=== PATIENT | female | born 2000 | race Two or more races ===

== ENCOUNTER 2023-03-23 20:13 | Inpatient (IN) | payer OTHER, MEDICAID, SELFPAY ==
[2023-03-23 20:16] VITALS: BP 115/79; PULSE 71; RESP 18; TEMP 36.9; O2SAT 96; BMI 31.1
--- NOTE | 2023-03-23 20:30 | CT_ITS ---
The [address] [address] Patient Name: TONI SOTELO MRN: [id number] date: 2000 Sex: F Assigned Patient Location: ER Current Patient Location: ER Accession/Order Number: [id number] Exam Date: 03/23/2023 21:20 Report Date: 03/23/2023 21:51 At the request of: MALVIN AGUILAR Procedure: CT abdomen pelvis w con EXAMINATION: CT ABDOMEN AND PELVIS WITH IV CONTRAST CLINICAL HISTORY: Abdominal pain TECHNIQUE: CT of the abdomen and pelvis was performed using standard technique, scanning from just above the dome of the diaphragm to the symphysis pubis. All CT scans at this facility use dose modulation, iterative reconstruction, and/or weight based dosing when appropriate to reduce radiation dose to as low as reasonably achievable. Contrast: IV: 100 ml of Omnipaque 350 COMPARISON: None. RESULT: Liver: No mass. Biliary: No bile duct dilation. Mildly distended gallbladder with diffuse wall thickening and pericholecystic fluid. There is mild surrounding soft tissue stranding. Multiple layering gallstones are noted. Spleen: No mass. No splenomegaly. Pancreas: No mass or duct dilation. Adrenals: No mass. Kidneys: No mass, calculus or hydronephrosis. GI tract: No dilation or wall thickening. Moderate colonic stool. Appendix is unremarkable. Lymph nodes: No abdominal or pelvic lymphadenopathy. Mesentery/Peritoneum: No ascites or mass. Retroperitoneum: No mass. Vasculature: The celiac axis and SMA are patent. The portal vein and branches, splenic vein, SMV, and hepatic veins are patent. Pelvis: Urinary bladder is unremarkable. IUD is noted. 38 x 35 mm left adnexal cyst. Bones/Soft Tissues: No significant finding. Lower thorax: Unremarkable. CT/CT abdomen pelvis w con IMPRESSION: Multiple layering gallbladder stones with wall thickening, hyperemia and pericholecystic fluid, concerning for acute cholecystitis. Recommend right upper quadrant ultrasound. Electronically authenticated by: SANCHEZ HAGEN Date: 03/23/2023 21:51
--- NOTE | 2023-03-23 20:32 | ED_ITS ---
Documented by User: SIRIA Bermudez 03/23/23 22:07 HPI - General Adult General Chief complaint: Abdominal Pain Stated complaint: acid reflux Time Seen by Provider: 03/23/23 20:15 Source: patient Mode of arrival: walk-in Limitations: no limitations History of Present Illness HPI narrative: Patient is a 22-year-old female who presents to the emergency department with her significant other for the evaluation of abdominal pain. Patient believes that she has acid reflux and gallbladder issues. She has never been formally diagnosed with these. She states for the last several months she has had pain in the upper abdomen, occasional nausea and vomiting. She was seen by GI specialist in the last several days and states that nothing was done for her, she has upcoming testing ordered but nothing has been performed yet. She was started on Pepcid without improvement. She states her symptoms are worsening in the last several days with pain to the epigastrium, diffuse low back pain radiating into the lower abdomen, odorous bowel movements, vomiting acid. She is not concerned for . She has had no fevers. No urinary symptoms. No previous abdominal surgeries. Related Data Home Medications Medication Instructions Recorded Confirmed pantoprazole 20 mg tablet,delayed 20 mg PO Q12H 03/23/23 03/23/23 release Allergies Allergy/AdvReac Type Severity Reaction Status Date / Time No Known Drug Allergies Allergy Verified 03/23/23 20:24 Review of Systems ROS Constitutional Denies: fever or chills Ears, nose, mouth, and throat Denies: throat pain or nasal congestion Cardiovascular Denies: chest pain Respiratory Denies: shortness of breath or cough Gastrointestinal Reports: abdominal pain, nausea and vomiting Genitourinary Denies: painful urination Musculoskeletal Reports: back pain Integumentary/Breast Denies: rash Neurological Denies: headache PFSH PFSH Social History Smoking status: Never smoker Exam Narrative Exam Narrative: Gen.: Awake, alert, in no distress Head: Normocephalic, atraumatic ENT: Moist mucous membranes Respiratory: No respiratory distress, lungs clear bilaterally Cardio: Regular rate and rhythm Gastrointestinal: Abdomen is soft, tender to palpation in the epigastrium and umbilicus. No guarding or rebound. No right upper quadrant tenderness, no McBurney's point tenderness Extremities: Moves extremities equally Psych: Normal mood and affect Neuro: No focal neuro deficit Skin: Warm, dry, intact Constitutional Vital Signs, click to edit/add: Last Vital Signs Temp 98.4 F 03/23/23 20:16 Pulse 71 03/23/23 20:16 Resp 18 03/23/23 20:16 BP 115/79 03/23/23 20:16 Pulse Ox 96 03/23/23 20:16 O2 Del Method Room Air 03/23/23 20:16 Course Vital Signs Vital signs: Vital Signs Temperature 98.4 F 03/23/23 20:16 Pulse Rate 71 03/23/23 20:16 Respiratory Rate 18 03/23/23 20:16 Blood Pressure 115/79 03/23/23 20:16 Pulse Oximetry 96 03/23/23 20:16 Oxygen Delivery Method Room Air 03/23/23 20:16 Temperature 98.4 F 03/23/23 20:16 Pulse Rate 71 03/23/23 20:16 Respiratory Rate 18 03/23/23 20:16 Blood Pressure 115/79 03/23/23 20:16 Pulse Oximetry 96 03/23/23 20:16 Oxygen Delivery Method Room Air 03/23/23 20:16 Medical Decision Making MDM Narrative Medical decision making narrative: 2206: Patient was medicated with IV fluids, Zofran, Protonix, GI cocktail. She had no episodes of emesis in the ER. She is resting comfortably after medication. Vital signs are within normal limits in the ER. Lab studies show leukocytosis with no bandemia and otherwise unremarkable LFTs and lipase. test is negative. Patient is sent for CT of the abdomen and pelvis with IV contrast which shows concern for layering gallstones and possible acute cholecystitis. Right upper quadrant ultrasound was requested by the radiologist for further evaluation. At this time, we are awaiting the roof service technician to evaluate the patient. Case is turned over to attending physician for disposition. Medical Records Medical records reviewed: Yes I reviewed the patient's medical records Lab Data Lab results reviewed: Yes I reviewed the patient's lab results Labs: Lab Results 03/23/23 03/23/23 Range/Units 20:45 22:08 WBC 19.7 H (4.0-11.0) 10^3/uL RBC 5.04 (4.20-5.40) 10^6/uL Hgb 13.9 (12.0-16.0) g/dL Hct 42.6 (36.0-48.0) % MCV 84.5 (81.0-99.0) fL MCH 27.6 (26.7-34.0) pg MCHC 32.6 (29.9-35.2) g/dL RDW 12.7 (11.0-15.0) % Plt Count 304 (150-450) 10^3/uL MPV 10.3 (9.5-13.5) fL Neut % (Auto) 90.5 H (43.0-75.0) % Lymph % (Auto) 5.0 L (20.5-60.0) % [place] % (Auto) 4.0 (1.7-12.0) % Eos % (Auto) 0.0 L (0.9-7.0) % Baso % (Auto) 0.2 (0.2-2.0) % Neut # (Auto) 17.8 H (1.4-6.5) 10^3/uL Lymph # (Auto) 1.0 L (1.2-3.8) 10^3/uL [place] # (Auto) 0.8 (0.3-0.8) 10^3/uL Eos # (Auto) 0.0 (0.0-0.7) 10^3/uL Baso # (Auto) 0.0 (0.0-0.1) 10^3/uL Abs Immat Gran (auto) 0.06 H (0.00-0.03) 10^3/uL Imm/Tot Granulo (auto) 0.3 (0.0-0.5) % Sodium 134 L (136-145) mmol/L Potassium 3.7 (3.5-5.1) mmol/L Chloride 98 (98-107) mmol/L Carbon Dioxide 25.6 (21.0-32.0) mmol/L Anion Gap 14.1 BUN 11.0 (7.0-18.0) mg/dL Creatinine 0.64 (0.55-1.02) mg/dL Est GFR ( Amer) >60 (>=60) Est GFR (Non-Af Amer) >60 (>=60) BUN/Creatinine Ratio 17.2 Glucose 131 H (74-106) mg/dL Lactate 1.1 (0.4-2.0) mmol/L Calcium 9.4 (8.5-10.1) mg/dL Total Bilirubin 0.6 (0.2-1.0) mg/dL AST 15 (15-37) U/L ALT 25 (14-59) U/L Alkaline Phosphatase 68 (46-116) U/L Total Protein 8.1 (6.4-8.2) g/dL Albumin 4.1 (3.4-5.0) g/dL Globulin 4.0 g/dL Albumin/Globulin Ratio 1.0 Lipase 23.0 (16.0-77.0) U/L Serum HCG, Qual Negative (NEGATIVE) Urine Color Yellow (YELLOW) Urine Clarity Clear (CLEAR) Urine pH 6.5 (5.0-9.0) Ur Specific [place] 1.010 (1.005-1.025) Urine Protein Trace (NEG/TRACE) mg/dL Urine Glucose (UA) Negative (NEGATIVE) mg/dL Urine Ketones 40 A (NEGATIVE) mg/dL Urine Occult Blood Moderate A (NEGATIVE) Urine Nitrite Negative (NEGATIVE) Urine Bilirubin Negative (NEGATIVE) Urine Urobilinogen 0.2 (0.2-1.0) EU/dL Ur Leukocyte Esterase Negative (NEGATIVE) Urine RBC 0-2 (0-2) #/HPF Urine WBC 0-2 A (NONE SEEN) #/HPF Ur Squamous Epith Cells Few A (NONE/RARE) #/LPF Urine Crystals None seen (None Seen) #/HPF Urine Bacteria None seen (NONE SEEN) #/HPF Urine Casts None seen (NONE SEEN) #/LPF Urine Mucus Small A (NONE SEEN) Ur Culture Indicated? No Imaging Data CT scan - abdomen: Attestation: I have reviewed the pertinent imaging results. Radiologist's impression: ITS Impressions Abdomen/Pelvis CT 03/23/23 20:30 IMPRESSION: Multiple layering gallbladder stones with wall thickening, hyperemia and pericholecystic fluid, concerning for acute cholecystitis. Recommend right upper quadrant ultrasound. Electronically authenticated by: SANCHEZ HAGEN Date: 03/23/2023 21:51 Upper Quadrant Ultrasound 03/23/23 21:56 IMPRESSION: 1. Cholelithiasis with gallbladder distention and gallbladder wall thickening. There was a negative reported sonographic Mills's sign; however, please correlate for acute cholecystitis. Electronically authenticated by: Rachel WILEY Date: 03/24/2023 00:56 Discharge Plan Discharge Chief Complaint: Abdominal Pain Clinical Impression: Abdominal pain, Acute cholecystitis Patient Disposition: Admitted as Observation Time of Disposition Decision: 01:31 Condition: Fair Documented by User: Giovana Ricci MD 03/24/23 01:37 HPI - General Adult General Chief complaint: Abdominal Pain Stated complaint: acid reflux Time Seen by Provider: 03/23/23 20:15 Related Data Home Medications Medication Instructions Recorded Confirmed pantoprazole 20 mg tablet,delayed 20 mg PO Q12H 03/23/23 03/23/23 release Allergies Allergy/AdvReac Type Severity Reaction Status Date / Time No Known Drug Allergies Allergy Verified 03/23/23 20:24 PFSH PFSH Social History Smoking status: Never smoker Exam Constitutional Vital Signs, click to edit/add: Last Vital Signs Temp 98.4 F 03/23/23 20:16 Pulse 71 03/23/23 20:16 Resp 18 03/23/23 20:16 BP 115/79 03/23/23 20:16 Pulse Ox 96 03/23/23 20:16 O2 Del Method Room Air 03/23/23 20:16 Course Vital Signs Vital signs: Vital Signs Temperature 98.4 F 03/23/23 20:16 Pulse Rate 71 03/23/23 20:16 Respiratory Rate 18 03/23/23 20:16 Blood Pressure 115/79 03/23/23 20:16 Pulse Oximetry 96 03/23/23 20:16 Oxygen Delivery Method Room Air 03/23/23 20:16 Temperature 98.4 F 03/23/23 20:16 Pulse Rate 71 03/23/23 20:16 Respiratory Rate 18 03/23/23 20:16 Blood Pressure 115/79 03/23/23 20:16 Pulse Oximetry 96 03/23/23 20:16 Oxygen Delivery Method Room Air 03/23/23 20:16 Medical Decision Making MDM Narrative Medical decision making narrative: 2206: Patient was medicated with IV fluids, Zofran, Protonix, GI cocktail. She had no episodes of emesis in the ER. She is resting comfortably after medication. Vital signs are within normal limits in the ER. Lab studies show leukocytosis with no bandemia and otherwise unremarkable LFTs and lipase. test is negative. Patient is sent for CT of the abdomen and pelvis with IV contrast which shows concern for layering gallstones and possible acute cholecystitis. Right upper quadrant ultrasound was requested by the radiologist for further evaluation. At this time, we are awaiting the roof service technician to evaluate the patient. Case is turned over to attending physician for disposition. Patient was seen and evaluated in conjunction with the physician reference library assistant. Please refer to her full H and P. She was seen and evaluated by myself. She has been having intermittent epigastric and right upper quadrant abdominal pain since she was in 2021. She states her multiple things she cannot eat including tomatoes, caffeine and her pain has been increasing over the past several days. She was unable to eat anything yesterday due to the abdominal pain. She has not had a fever. Labs are reviewed. She does have an elevated white count at 19.7. Electrolytes, liver function tests and tests are otherwise unremarkable. She was medicated with IV fluids, Pepcid and a gastrointestinal cocktail with mild clinical improvement but on reevaluation she was still having pain and was given additional IV fluids and Zofran and Toradol. Ultrasound of the gallbladder shows cholelithiasis with gallbladder distention measuring up to 10.2 cm in length and gallbladder wall thickening measuring up to 0.4 cm. No intrahepatic or extrahepatic biliary ductal dilatation was noted with a normal common bile duct and patent portal vein. The case was discussed with Dr. Garber, general surgery and she will be consulted on by him. He requests admission to the hospitalist service. He is in agreement with [facility] for GI pathogen coverage. Case was discussed with the hospitalist and she is accepted for admission. She and her boyfriend are in agreement with this plan. Medical Records Medical records narrative: The [address] [address] Ultrasound Report Signed Patient: TONI SOTELO MR#: [id number] : 2000 Acct:[id number] Age/Sex: 22 / F ADM Date: 03/23/23 Loc: ER Attending Dr: Ordering Physician: Malvin Aguilar Date of Service: 03/23/23 Procedure(s): US right upper quadrant Accession Number(s): [id number] cc: Malvin Aguilar; Physician,Non-Staff M.DSiri~ The [place] [id number] Patient Name: TONI SOTELO MRN: [id number] date: 2000 Sex: F Assigned Patient Location: ER Current Patient Location: ER Accession/Order Number: [id number] Exam Date: 03/23/2023 22:40 Report Date: 03/24/2023 00:56 At the request of: MALVIN AGUILAR Procedure: US right upper quadrant EXAM: US right upper quadrant HISTORY: Abdominal pain COMPARISON: Correlation is made with CT abdomen and pelvis examination of the same date. TECHNIQUE: Real-time ultrasonography of the right upper quadrant was performed using Color Doppler and reviewed. FINDINGS: The liver is normal in size and echogenicity with no focal intrahepatic lesions. There is cholelithiasis with gallbladder distention measuring up to 10.2 cm length and gallbladder wall thickening measuring up to 0.4 cm. There is no intrahepatic or extrahepatic biliary ductal dilation. The common bile duct is within normal limits measuring up to 4 mm. The portal vein is patent and demonstrates normal hepatopetal blood flow. The imaged hepatic veins are patent. The right kidney is normal in size and cortical echogenicity, without evidence of focal mass, calcification, or hydronephrosis. The right kidney measures 10.2 cm in length. The visualized portions of the pancreas are unremarkable. US/US right upper quadrant IMPRESSION: 1. Cholelithiasis with gallbladder distention and gallbladder wall thickening. There was a negative reported sonographic Mills's sign; however, please correlate for acute cholecystitis. Electronically authenticated by: Rachel WILEY Date: 03/24/2023 00:56 Lab Data Labs: Lab Results 03/23/23 03/23/23 Range/Units 20:45 22:08 WBC 19.7 H (4.0-11.0) 10^3/uL RBC 5.04 (4.20-5.40) 10^6/uL Hgb 13.9 (12.0-16.0) g/dL Hct 42.6 (36.0-48.0) % MCV 84.5 (81.0-99.0) fL MCH 27.6 (26.7-34.0) pg MCHC 32.6 (29.9-35.2) g/dL RDW 12.7 (11.0-15.0) % Plt Count 304 (150-450) 10^3/uL MPV 10.3 (9.5-13.5) fL Neut % (Auto) 90.5 H (43.0-75.0) % Lymph % (Auto) 5.0 L (20.5-60.0) % [place] % (Auto) 4.0 (1.7-12.0) % Eos % (Auto) 0.0 L (0.9-7.0) % Baso % (Auto) 0.2 (0.2-2.0) % Neut # (Auto) 17.8 H (1.4-6.5) 10^3/uL Lymph # (Auto) 1.0 L (1.2-3.8) 10^3/uL [place] # (Auto) 0.8 (0.3-0.8) 10^3/uL Eos # (Auto) 0.0 (0.0-0.7) 10^3/uL Baso # (Auto) 0.0 (0.0-0.1) 10^3/uL Abs Immat Gran (auto) 0.06 H (0.00-0.03) 10^3/uL Imm/Tot Granulo (auto) 0.3 (0.0-0.5) % Sodium 134 L (136-145) mmol/L Potassium 3.7 (3.5-5.1) mmol/L Chloride 98 (98-107) mmol/L Carbon Dioxide 25.6 (21.0-32.0) mmol/L Anion Gap 14.1 BUN 11.0 (7.0-18.0) mg/dL Creatinine 0.64 (0.55-1.02) mg/dL Est GFR ( Amer) >60 (>=60) Est GFR (Non-Af Amer) >60 (>=60) BUN/Creatinine Ratio 17.2 Glucose 131 H (74-106) mg/dL Lactate 1.1 (0.4-2.0) mmol/L Calcium 9.4 (8.5-10.1) mg/dL Total Bilirubin 0.6 (0.2-1.0) mg/dL AST 15 (15-37) U/L ALT 25 (14-59) U/L Alkaline Phosphatase 68 (46-116) U/L Total Protein 8.1 (6.4-8.2) g/dL Albumin 4.1 (3.4-5.0) g/dL Globulin 4.0 g/dL Albumin/Globulin Ratio 1.0 Lipase 23.0 (16.0-77.0) U/L Serum HCG, Qual Negative (NEGATIVE) Urine Color Yellow (YELLOW) Urine Clarity Clear (CLEAR) Urine pH 6.5 (5.0-9.0) Ur Specific [place] 1.010 (1.005-1.025) Urine Protein Trace (NEG/TRACE) mg/dL Urine Glucose (UA) Negative (NEGATIVE) mg/dL Urine Ketones 40 A (NEGATIVE) mg/dL Urine Occult Blood Moderate A (NEGATIVE) Urine Nitrite Negative (NEGATIVE) Urine Bilirubin Negative (NEGATIVE) Urine Urobilinogen 0.2 (0.2-1.0) EU/dL Ur Leukocyte Esterase Negative (NEGATIVE) Urine RBC 0-2 (0-2) #/HPF Urine WBC 0-2 A (NONE SEEN) #/HPF Ur Squamous Epith Cells Few A (NONE/RARE) #/LPF Urine Crystals None seen (None Seen) #/HPF Urine Bacteria None seen (NONE SEEN) #/HPF Urine Casts None seen (NONE SEEN) #/LPF Urine Mucus Small A (NONE SEEN) Ur Culture Indicated? No Imaging Data CT scan - abdomen: Radiologist's impression: ITS Impressions Abdomen/Pelvis CT 03/23/23 20:30 IMPRESSION: Multiple layering gallbladder stones with wall thickening, hyperemia and pericholecystic fluid, concerning for acute cholecystitis. Recommend right upper quadrant ultrasound. Electronically authenticated by: SANCHEZ HAGEN Date: 03/23/2023 21:51 Upper Quadrant Ultrasound 03/23/23 21:56
[2023-03-23] MEDS: 0.9 % SODIUM CHLORIDE 1,000 ML 999 ML IV (20:50)
[2023-03-23 20:55] LABS: Basophils Percent Auto 0.2 % (0.2-2.0); Hematocrit 42.6 % (36.0-48.0); Hemoglobin 13.9 g/dL (12.0-16.0); Immature Granulocytes Abs Auto 0.06 10^3/uL (0.00-0.03); Immature Granulocytes Pct Auto 0.3 % (0.0-0.5); Mean Corpuscular HGB Conc 32.6 g/dL (29.9-35.2); Mean Corpuscular Hemoglobin 27.6 pg (26.7-34.0); Mean Corpuscular Volume 84.5 fL (81.0-99.0); Mean Platelet Volume 10.3 fL (9.5-13.5); Monocytes Absolute Auto 0.8 10^3/uL (0.3-0.8); Neutrophils Absolute Auto 17.8 10^3/uL (1.4-6.5); Neutrophils Percent Auto 90.5 % (43.0-75.0); Platelet Count 304 10^3/uL (150-450); Red Blood Count 5.04 10^6/uL (4.20-5.40); Red Cell Distribution Width 12.7 % (11.0-15.0); White Blood Count 19.7 10^3/uL (4.0-11.0)
[2023-03-23] MEDS: PANTOPRAZOLE SODIUM 40 MG VIAL IV (20:57)
[2023-03-23] MEDS: lidocaine HCL 15 ML, MAG HYDROX/ALUMINUM HYD/SIMETH 30 ML, HYOSCYAMINE SULFATE 0.25 MG PO (20:57)
[2023-03-23] MEDS: ONDANSETRON PF 4 MG/2 ML VIAL IV (21:01)
[2023-03-23 21:09] LABS: HCG Qualitative NEGATIVE (NEGATIVE)
[2023-03-23 21:15] LABS: Alanine Aminotransferase 25 U/L (14-59); Albumin Level 4.1 g/dL (3.4-5.0); Alkaline Phosphatase 68 U/L (46-116); Anion Gap 14.1; Aspartate Amino Transferase 15 U/L (15-37); BUN Creatinine Ratio 17.2; Bilirubin Total 0.6 mg/dL (0.2-1.0); Calcium 9.4 mg/dL (8.5-10.1); Carbon Dioxide 25.6 mmol/L (21.0-32.0); Chloride 98 mmol/L (98-107); Estimated GFR (African America >60 (>=60); Estimated GFR (Non-African Ame >60 (>=60); Glucose 131 mg/dL (74-106); Potassium 3.7 mmol/L (3.5-5.1); Sodium 134 mmol/L (136-145); Total Protein 8.1 g/dL (6.4-8.2)
[2023-03-23 21:17] LABS: Lactate/Lactic Acid 1.1 mmol/L (0.4-2.0)
--- NOTE | 2023-03-23 21:56 | US_ITS ---
The [address] [address] Patient Name: TONI SOTELO MRN: [id number] date: 2000 Sex: F Assigned Patient Location: ER Current Patient Location: ER Accession/Order Number: [id number] Exam Date: 03/23/2023 22:40 Report Date: 03/24/2023 00:56 At the request of: MALVIN AGUILAR Procedure: US right upper quadrant EXAM: US right upper quadrant HISTORY: Abdominal pain COMPARISON: Correlation is made with CT abdomen and pelvis examination of the same date. TECHNIQUE: Real-time ultrasonography of the right upper quadrant was performed using Color Doppler and reviewed. FINDINGS: The liver is normal in size and echogenicity with no focal intrahepatic lesions. There is cholelithiasis with gallbladder distention measuring up to 10.2 cm length and gallbladder wall thickening measuring up to 0.4 cm. There is no intrahepatic or extrahepatic biliary ductal dilation. The common bile duct is within normal limits measuring up to 4 mm. The portal vein is patent and demonstrates normal hepatopetal blood flow. The imaged hepatic veins are patent. The right kidney is normal in size and cortical echogenicity, without evidence of focal mass, calcification, or hydronephrosis. The right kidney measures 10.2 cm in length. The visualized portions of the pancreas are unremarkable. US/US right upper quadrant IMPRESSION: 1. Cholelithiasis with gallbladder distention and gallbladder wall thickening. There was a negative reported sonographic Mills's sign; however, please correlate for acute cholecystitis. Electronically authenticated by: Rachel WILEY Date: 03/24/2023 00:56
[2023-03-23 22:40] LABS: Bilirubin Urine NEGATIVE (NEGATIVE); Blood Urine MODERATE (NEGATIVE); Clarity Urine CLEAR (CLEAR); Color Urine YELLOW (YELLOW); Glucose Urine UA NEGATIVE (NEGATIVE); Ketones Urine 40 mg/dL (NEGATIVE); Leukocyte Esterase Urine NEGATIVE (NEGATIVE); Nitrite Urine NEGATIVE (NEGATIVE); Protein Urine TRACE mg/dL (NEG/TRACE); Urobilinogen Urine 0.2 EU/dL (0.2-1.0); pH Urine 6.5 (5.0-9.0)
[2023-03-23 22:41] LABS: Urine Microscopic Indicated YES
[2023-03-23 23:03] LABS: Bacteria Urine NONE SEEN #/HPF (NONE SEEN); RBC Urine 0-2 #/HPF (0-2); WBC Urine 0-2 #/HPF (NONE SEEN)
[2023-03-23 23:04] LABS: Cast Seen? NONE SEEN #/LPF (NONE SEEN); Crystals Seen? None Seen #/HPF (None Seen); Mucus Urine SMALL (NONE SEEN); Squamous Epithelial Cell Urine FEW #/LPF (NONE/RARE); Urine Culture Indicated NO
[2023-03-24] VITALS (24 sets, daily range): BP systolic 111–139; BP diastolic 62–92; PULSE 60–113; RESP 13–21; TEMP 36.1–37.7; O2SAT 89–96; BMI 31.5
--- NOTE | 2023-03-24 | FL_ITS ---
[address] [address] Patient Name: TONI SOTELO MRN: [id number] date: 2000 Sex: F Assigned Patient Location: MS Current Patient Location: Accession/Order Number: [id number] Exam Date: 03/24/2023 16:05 Report Date: 03/28/2023 11:05 At the request of: RAYMUNDO BOWEN Procedure: FL fluoroscopy <1hr NON-READ EXAM: FL fluoroscopy <1hr NON-READ HISTORY: Open Cholangiogram TECHNIQUE: FINDINGS: Please see Operative Report. Electronically authenticated by: RADIOLOGIST NO Date: 03/28/2023 11:05
--- NOTE | 2023-03-24 | CONS_ITS ---
CONSULTATION DATE: 03/24/2023 CHIEF COMPLAINT: Abdominal pain. HISTORY OF PRESENT ILLNESS: Patient is a 22-year-old female with a one year history of intermittent upper abdominal pain. She reports that this worsened over the past several days, where she was developing a lot of epigastric, right upper quadrant pain radiating to her back. She did see a supervisor parking lot, who placed her on protonix. She had previously been on omeprazole. Pain persisted. She had some intermittent nausea, vomiting as well as frequent loose stools. No fevers. She presented to the emergency room last evening and was found to have an elevated white blood cell count of 19,000; normal liver function tests. CT scan revealed evidence of a distended, thickened gallbladder with small stones. This was confirmed with ultrasound, consistent with acute cholecystitis. Patient denies history of jaundice or pancreatitis. Has had no previous abdominal surgery. Did have fatty food intolerance in the past. Was unsure what triggered this current attack. She denies any medical problems. Does not use tobacco. MEDICATIONS: Is on no other cojn-kyj-lyvnsps or prescription medications. Only medication is the protonix. ALLERGIES: She has no known drug allergies. PAST SURGICAL HISTORY: She denies any previous surgical operations. SOCIAL HISTORY: She denies tobacco use or illicit drug use. FAMILY HISTORY: Noncontributory. REVIEW OF SYSTEMS: Ten system review of systems is negative for recent weight loss or weight gain. She denies increased fatigue or light-headedness. Has had no earache or tinnitus. No sinus congestion. No sore throat or hoarseness. No chest pain, palpitations or syncope. No chronic cough, shortness of breath or hemoptysis. She has had the abdominal pain, nausea, vomiting and loose stools. No melena, hematochezia or bright red blood per rectum. No dysuria, frequency, urgency or hematuria. No headaches, seizures or tremors. No easy bruising or bleeding. No heat or cold intolerance. No polydipsia, polyphagia or polyuria. PHYSICAL EXAM: VITAL SIGNS: Patient?s BMI is 31. She is afebrile. Blood pressure is 119/70. Pulse is 60 and regular. Respiratory rate is 18. O2 saturation is 92% on room air. GENERAL: In general, she is a well developed, well nourished female, currently in no acute distress. HEENT: Normocephalic, atraumatic. Sclerae anicteric. Conjunctiva are not injected. Oral mucosa is moist without lesions. NECK: Supple. No adenopathy, thyromegaly or JVD. LUNGS: Clear bilaterally. CARDIAC EXAM: Regular rhythm and rate without appreciable murmurs, rubs or gallops. ABDOMEN: Soft. There is right upper quadrant tenderness. No peritoneal signs. No masses. No hepatosplenomegaly. No hernias noted. No CVA tenderness. SKIN: Warm and dry without lesions, rashes or ulcers. NEURO EXAM: Non-focal. Non-lateralizing. Patient is awake, alert, oriented with appropriate affect. MUSCULOSKELETAL EXAM: Reveals normal muscle strength, mass and tone. LABORATORY VALUES: As noted in the HPI. ASSESSMENT: A 22-year-old female with evidence of acute cholecystitis. PLAN: IV antibiotics and proceeding with laparoscopic cholecystectomy, possible open procedure. Indications, risks, benefits, alternatives of proceeding were explained extensively to the patient, including risks of bleeding, infection, bile duct injury, bowel injury, need for intraoperative cholangiogram, postoperative ERCP or open procedure. All of her questions were answered. Informed consent was obtained. CC: Family physician AGATA
[2023-03-24] MEDS: KETOROLAC TROMETHAMINE 30 MG/ML VIAL IVP (02:00)
[2023-03-24] MEDS: PIPERACILLIN SODIUM/TAZOBACTAM 3.375 GM in 0.9 % SODIUM CHLORIDE 50 ML IV ×3 (02:01→20:51)
[2023-03-24] MEDS: 0.9 % SODIUM CHLORIDE 1,000 ML 125 ML IV ×2 (02:42→14:13)
[2023-03-24 06:01] LABS: Basophils Percent Auto 0.2 % (0.2-2.0); Hematocrit 41.2 % (36.0-48.0); Hemoglobin 13.5 g/dL (12.0-16.0); Immature Granulocytes Abs Auto 0.09 10^3/uL (0.00-0.03); Immature Granulocytes Pct Auto 0.4 % (0.0-0.5); Lymphocytes Absolute Auto 1.1 10^3/uL (1.2-3.8); Lymphocytes Percent Auto 5.2 % (20.5-60.0); Mean Corpuscular HGB Conc 32.8 g/dL (29.9-35.2); Mean Corpuscular Hemoglobin 27.7 pg (26.7-34.0); Mean Corpuscular Volume 84.4 fL (81.0-99.0); Mean Platelet Volume 10.8 fL (9.5-13.5); Monocytes Absolute Auto 1.4 10^3/uL (0.3-0.8); Monocytes Percent Auto 6.7 % (1.7-12.0); Neutrophils Percent Auto 87.5 % (43.0-75.0); Platelet Count 286 10^3/uL (150-450); Red Blood Count 4.88 10^6/uL (4.20-5.40); Red Cell Distribution Width 12.6 % (11.0-15.0); White Blood Count 20.6 10^3/uL (4.0-11.0)
[2023-03-24 06:08] LABS: Anion Gap 12.3; Calcium 8.9 mg/dL (8.5-10.1); Carbon Dioxide 26.1 mmol/L (21.0-32.0); Chloride 101 mmol/L (98-107); Estimated GFR (African America >60 (>=60); Estimated GFR (Non-African Ame >60 (>=60); Glucose 143 mg/dL (74-106); Potassium 3.4 mmol/L (3.5-5.1); Sodium 136 mmol/L (136-145)
[2023-03-24] MEDS: SENNOSIDES 8.6 MG TABLET PO (07:34)
[2023-03-24] MEDS: ONDANSETRON PF 4 MG/2 ML VIAL IV (07:34)
[2023-03-24] MEDS: MORPHINE SULFATE 4 MG/ML VIAL IV (08:09)
--- NOTE | 2023-03-24 10:53 | CM.NOTE ---
Rounding with Dr. Nichols, pt going to OR today around noon. Possible discharge after OR.
--- NOTE | 2023-03-24 11:56 | P.HP_ITS ---
H&P: HPI History of Present Illness Chief complaint: Flu Like Symptoms Narrative: 22 y/o female to ER with abdominal pain. C/o pain off and on for several months. Frequent pain in epigastric region and upper abdomen. Frequent episodes of nausea and emesis. Seen by GI and testing ordered. Added pepcid but no change in symptoms. Developed severe pain in RUQ and radiated to back. Severe nausea and emesis and to ER. WBC elevated at 19.[address] showed gallstones and signs of cholecystitis. US gallbladder showed acute cholecystitis and admitted. Started zosyn and IV fluids. General surgery consulted. Patient denies any past medical history and no home medication. 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 Highest level of school completed/degree received: Associate degree: occupational, technical, vocational program Are you now , , , , never or living with a partner: living with partner In a typical week, how many times do you talk on the telephone with family, friends, or neighbors: 3 or more times per week How often do you get together with friends or relatives: 3 or more times per week How often do you attend anabaptist or advent services: 1-3 times per year Little interest or pleasure in doing things: not at all Feeling down, depressed, or hopeless: not at all Feel stressed/tense/nervous/anxious/difficulty sleeping: not at all Do you think of yourself as: straight/heterosexual Gender Identity: female Meds Home Medications and Allergies Home Medications Medication Instructions Recorded Confirmed Type pantoprazole 20 mg tablet,delayed 20 mg PO Q12H 03/23/23 03/23/23 History release Allergies Allergy/AdvReac Type Severity Reaction Status Date / Time No Known Drug Allergies Allergy Verified 03/23/23 20:24 Exam Constitutional Vital Signs, click to edit/add: Last Vital Signs Temp 99.0 F 03/24/23 05:25 Pulse 60 03/24/23 05:25 Resp 18 03/24/23 07:45 BP 119/70 03/24/23 05:25 Pulse Ox 92 L 03/24/23 05:25 O2 Del Method Room Air 03/24/23 05:25 Documenting provider has reviewed patient's vital signs: yes Common normals: oriented x3 and alert HENMT Common normals: normocephalic Eye Common normals: PERRL and EOMs intact bilaterally Respiratory Common normals: normal respiratory effort and clear to auscultation bilaterally Cardio Common normals: regular rate, regular rhythm, no gallops, no murmurs and no rub GI Auscultation: normoactive bowel sounds Palpation: soft and tender (TTP RUQ); no guarding Extremity Common normals: no pedal edema Results Labs Labs: Short CBC 03/23/23 03/24/23 Range/Units 20:45 05:05 WBC 19.7 H 20.6 H (4.0-11.0) 10^3/uL Hgb 13.9 13.5 (12.0-16.0) g/dL Hct 42.6 41.2 (36.0-48.0) % Plt Count 304 286 (150-450) 10^3/uL BMP 03/23/23 03/24/23 20:45 05:05 Sodium 134 L 136 Potassium 3.7 3.4 L Chloride 98 101 Carbon Dioxide 25.6 26.1 BUN 11.0 8.0 Creatinine 0.64 0.57 Glucose 131 H 143 H Calcium 9.4 8.9 Liver Function 03/23/23 Range/Units 20:45 Total Bilirubin 0.6 (0.2-1.0) mg/dL AST 15 (15-37) U/L ALT 25 (14-59) U/L Alkaline Phosphatase 68 (46-116) U/L Albumin 4.1 (3.4-5.0) g/dL Urine 03/23/23 Range/Units 22:08 Urine Color Yellow (YELLOW) Urine Clarity Clear (CLEAR) Urine pH 6.5 (5.0-9.0) Ur Specific Joffre 1.010 (1.005-1.025) Urine Protein Trace (NEG/TRACE) mg/dL Urine Glucose (UA) Negative (NEGATIVE) mg/dL Imaging US - abdomen: Attestation: I have reviewed the pertinent imaging results. Assessment and Plan Assessment and Plan (1) Acute cholecystitis: (2) Abdominal pain: (3) Obesity: Plan Pain improved with medication and on zosyn. General surgery evaluated and plan on taking to OR later this afternoon. Postop plan per surgery. Will advance diet after surgery and observe for pain control.
[2023-03-24] MEDS: LACTATED RINGER'S SOLUTION 1,000 ML 1000 ML IV (14:38)
--- NOTE | 2023-03-24 15:02 | OP_ITS ---
OP Note ? OPERATION DATE: ??03/24/2023 ? PREOPERATIVE DIAGNOSIS:? Acute cholecystitis. ? POSTOPERATIVE DIAGNOSIS:? Acute and chronic gangrenous hemorrhagic cholecystitis with obstruction cholelithiasis. ? PROCEDURE:? Attempted laparoscopic cholecystectomy converted to open, subtotal fenestrated cholecystectomy with intraoperative cholangiogram. ? SURGEON:? Amilcar Garber M.D. ? ANESTHESIA:? General endotracheal by Dr. Kirby. ? DIRECTOR ORGANIZATIONAL:? WILIAN Harmon ? ESTIMATED BLOOD LOSS:? Less than 25 mL. ? INDICATIONS AND CONSENT:? Patient is a 22-year-old female with a long history of intermittent biliary colic type symptoms, which have worsened over the last week.? She has had severe upper abdominal pain and back pain, as well as intermittent nausea, vomiting and loose stools.? She presented to the emergency room late last evening.? Workup revealed leukocytosis but normal liver function tests.? She was found to have a thickened, inflamed gallbladder with pericholecystic fluid with multiple stones, both on CT as well as ultrasound.? She was hemodynamically stable.? She was admitted and placed on IV Zosyn and pain control, and now presents for cholecystectomy.? She has had no previous abdominal surgeries.? Indications, risks, benefits, alternatives of proceeding with laparoscopic cholecystectomy were explained extensively to the patient, including risks of bleeding, infection, bile duct injury, bowel injury, need for intraoperative cholangiogram, postoperative ERCP, open procedure, blood clot, pulmonary embolus, heart attack, anesthetic complications and need for further surgery.? All of her questions were answered.? Informed consent was obtained. ? PROCEDURE:? Patient was brought to the operating room, placed in the supine position.? General anesthesia was induced.? Patient was prepped and draped in the usual sterile fashion.? An infraumbilical incision was made with the scalpel blade and carried down through subcutaneous tissue using blunt dissection.? The fascia was grasped and incised.? Two 0 Vicryl stay sutures were placed in either side of the midline fascia.? The Barton trocar was then inserted and secured using the stay sutures.? The abdomen was then insufflated with carbon dioxide to a pressure of 15 mm/Hg.? The scope was then inserted and the abdomen was visualized.? The patient was placed in reverse Trendelenburg position with the right side up.? Three 5 mm ports were then placed; one in the subxiphoid area, two in the right subcostal area, all under direct visualization.? The gallbladder was noted to be markedly distended with some gangrenous changes with acute and chronic inflammatory changes.? It was aspirated with an aspirating needle for dark black bile.? This was sent for culture.? The gallbladder was able to be grasped at the fundus and retracted cephalad and to the patient?s right.? Infundibulum was markedly adherent to surrounding structures.? This was carefully dissected off, down to the infundibulum.? It was markedly chronically scarred and inflamed.? It did extend down below and behind the area of the cystic duct, which could be identified.? The cystic duct was carefully dissected free; however, due to the chronic dense inflammation, I could not safely dissect more medially or inferiorly, and could not mobilize the markedly distended and chronically inflamed infundibulum away from the medial structures.? There was poor visualization from the laparoscopic equipment as well, due to being very dark, due to some blood in the cavity, as well as some chronic inflammation.? We did try to switch to a 10 camera, which was somewhat better, but due to the chronic inflammation, just were unable to complete the mobilization or mobilize the fundus, like would be required to obtain a critical view of safety.? Because of this, I elected to open.? Laparoscopic approach was abandoned.? The ports were removed.? Right subcostal incision was made connecting the subxiphoid and the medial right subcostal port site incision, carried down through the subcutaneous tissues and through the fascia.? The rectus abdominis was divided.? Fascia was entered sharply.? A Bookwalter retractor was placed.? The gallbladder was decompressed once again by enlarging the opening in the fundus and sucking out the bile and stones.? Then we mobilized the upper portion of the gallbladder leaving that with difficulty of the chronic thickening and inflammation.? Did attempt to do a cholangiogram through the cystic duct after opening the upper portion of the gallbladder, down to just above where the cystic duct was.? We could place a cholangiocatheter with balloon; however, it would become dislodged and we had leaking/back leaking.? We were able to get a picture showing the cystic duct.? There did not appear to be any dilatation or gross obstruction.? Therefore, the cystic duct was able to be tied off and clipped.? Because the infundibulum extended down medial and inferior to the cystic duct stump and was chronically inflamed and thickened, I was unable mobilize this up off that area due to potential risk of adjacent structures.? Therefore, elected to do a subtotal fenestrated cholecystectomy by amputating the gallbladder above the area of the cystic duct, leaving the lower portion of the infundibulum, which was completely open and free of stones.? The remaining gallbladder wall was excised and found to be markedly thickened and inflamed.? This was sent off to Pathology.? The wound was irrigated.? Hemostasis was achieved with electrocautery in the liver bed.? It should be noted that the cystic artery was not identified.? A 15 round J-P drain was then placed in the subhepatic space, near the area of the fenestrated cholecystectomy and brought out through the lateral right subcostal port site.? It was secured to the skin using a 3-0 nylon suture and placed to closed bulb suction.? The abdomen was copiously irrigated.? There was good hemostasis.? Retractors were removed.? The posterior rectus sheath was closed with a running #1 PDS suture.? Anterior rectus sheath was then closed with a running #1 Prolene suture.? The lateral musculature was closed as well with a #1 interrupted Vicryl suture.? Subcutaneous tissues were infiltrated with 0.5% Marcaine.? The wound was irrigated.? There was good hemostasis.? The subcutaneous tissue was re-approximated with interrupted 2-0 Monocryl suture.? The skin was closed with a running 4-0 subcuticular Monocryl suture.? The umbilical incision fascia was closed with a 0 Vicryl figure of eight suture, and the skin was closed with a running 4-0 subcuticular Monocryl suture.? Skin glue was applied to both incisions as well as a sterile pressure dressing and drain sponge, Medipore tape.? An abdominal binder was then applied.? Patient tolerated procedure well, was extubated and sent to recovery room in good condition. CC:? Patient?s family physician AGATA
[2023-03-24] MEDS: LACTATED RINGER'S SOLUTION 1,000 ML 50 ML IV (16:57)
[2023-03-24] MEDS: BUPIVACAINE HCL 0.5% PF 50 MG/10 ML VIAL 20 ML INJ (17:47)
[2023-03-24] MEDS: 0.9 % SODIUM CHLORIDE 10 ML INJ (18:06)
[2023-03-24] MEDS: IOHEXOL 300 MG/ML - 100 ML BTL INJ (18:07)
--- NOTE | 2023-03-24 19:38 | PC.NURSE ---
Abdominal binder in place. Binder lifted to check dressings. All dressings are clean, dry, and intact. Leandro draining serosanguineous drainage at this time.
[2023-03-24] MEDS: PANTOPRAZOLE SODIUM 40 MG VIAL IV (20:51)
--- NOTE | 2023-03-24 21:36 | PC.NURSE ---
rona drain to right lower abdomen emptied for 20cc's serosanguineous drainage. Also clot observed that came out of drain when emptied.
[2023-03-25] VITALS (7 sets, daily range): BP systolic 112–119; BP diastolic 70–79; PULSE 84–88; RESP 18; TEMP 36.9–37; O2SAT 90–96
[2023-03-25] MEDS: 0.9 % SODIUM CHLORIDE 1,000 ML 125 ML IV ×2 (03:16→12:01)
--- NOTE | 2023-03-25 03:19 | PC.NURSE ---
Abdominal binder intact. Abdominal binder lifted slightly to check dressings. Dressings to abdomen are clean, dry, and intact. Leandro drain to right lower abdomen with scant amount serosanguineous drainageg observed.
[2023-03-25 05:03] LABS: Basophils Percent Auto 0.1 % (0.2-2.0); Hematocrit 34.6 % (36.0-48.0); Hemoglobin 11.1 g/dL (12.0-16.0); Immature Granulocytes Abs Auto 0.09 10^3/uL (0.00-0.03); Immature Granulocytes Pct Auto 0.5 % (0.0-0.5); Mean Corpuscular HGB Conc 32.1 g/dL (29.9-35.2); Mean Corpuscular Hemoglobin 28.2 pg (26.7-34.0); Mean Corpuscular Volume 87.8 fL (81.0-99.0); Monocytes Absolute Auto 1.3 10^3/uL (0.3-0.8); Monocytes Percent Auto 7.8 % (1.7-12.0); Neutrophils Absolute Auto 14.7 10^3/uL (1.4-6.5); Neutrophils Percent Auto 85.6 % (43.0-75.0); Platelet Count 225 10^3/uL (150-450); Red Blood Count 3.94 10^6/uL (4.20-5.40); Red Cell Distribution Width 13.1 % (11.0-15.0); White Blood Count 17.1 10^3/uL (4.0-11.0)
[2023-03-25] MEDS: HYDROMORPHONE HCL 0.5 MG/0.5 ML SYRINGE IV (05:05)
[2023-03-25] MEDS: PIPERACILLIN SODIUM/TAZOBACTAM 3.375 GM in 0.9 % SODIUM CHLORIDE 50 ML IV ×2 (05:05→12:10)
[2023-03-25 05:29] LABS: Alanine Aminotransferase 184 U/L (14-59); Albumin Globulin Ratio 0.8; Albumin Level 2.7 g/dL (3.4-5.0); Alkaline Phosphatase 96 U/L (46-116); Anion Gap 8.6; Aspartate Amino Transferase 126 U/L (15-37); BUN Creatinine Ratio 19.6; Calcium 8.2 mg/dL (8.5-10.1); Chloride 105 mmol/L (98-107); Estimated GFR (African America >60 (>=60); Estimated GFR (Non-African Ame >60 (>=60); Globulin 3.2 g/dL; Glucose 102 mg/dL (74-106); Potassium 3.6 mmol/L (3.5-5.1); Sodium 136 mmol/L (136-145); Total Protein 5.9 g/dL (6.4-8.2)
--- NOTE | 2023-03-25 07:13 | PC.NURSE ---
rona drain emptied for 10cc's serosanguineous drainage. NO clots observed at this time.
[2023-03-25] MEDS: KETOROLAC TROMETHAMINE 30 MG/ML VIAL IVP (08:21)
[2023-03-25] MEDS: SENNOSIDES 8.6 MG TABLET PO (08:22)
--- NOTE | 2023-03-25 09:42 | CM.NOTE ---
Rounding with Dr. Nichols and RN Edith. Edith mentioned to Dr. Nichols that the patient is having vaginal bleeding. Pt. voiced that she ended her cycle around [place]. Pt. is sitting up in chair and states she is getting up and moving every hour. Dr. Nichols will reach out to Dr. Garber to discuss discharge plan.
--- NOTE | 2023-03-25 10:28 | CM.NOTE ---
Pt is up ambulatory in hallway. No discharge needs identified.
[2023-03-25] MEDS: ACETAMINOPHEN 325 MG TABLET 650 MG PO (11:23)
--- OUTSIDE RECORDS SUMMARY | 2023-03-25 13:06 | XMS_ITS | CCD ---
Author Name Unknown Address [address] [facility] [address] [place] [address] Organization [facility] Care Team Providers Care Welt Beater Name Role Phone JAMES, DR TOURE Admitting Unavailable MISC, DR TOURE Attending Unavailable JAMES, DR TOURE Primary Care Unavailable JAMES, DR TOURE Consulting Unavailable TONI SCHAEFER Attending Unavailable TONI SCHAEFER Admitting Unavailable NO FAMILY, PHYSICIAN Primary Care Provider Piper Natarajan MD Imulices Attending Provider Asaad Imad Unavailable Asaulices Imulices Attending Unavailable Asaad, Imad Admitting Unavailable NO FAMILY, PHYSICIAN Primary Care Unavailable Medications Current Medications Medication Drug Class(es) Dates Sig (Normalized) Sig (Original) pantoprazole 20 mg delayed release oral tablet (1 source) Proton Pump Inhibitor Start: 03-23-2023 take 1 tablet by mouth twice daily Pantoprazole Sodium 20 MG 1 tablet Orally Twice daily for 30 days Mar, Active Problems Problem Classification Problem Date Documented Date Episodic/Chronic Abdominal pain (2 sources) Abdominal pain; Translations: [Unspecified abdominal pain] Episodic Esophageal disorders (2 sources) Gastroesophageal reflux disease; Translations: [Gastro-esophageal reflux disease without esophagitis] Chronic Other complications of (4 sources) Other viral diseases complicating , second trimester; Translations: [OTH VIRAL DZ COMP PREG SECOND TRI] Onset: 10-09-2021 Episodic Other and delivery including normal (4 sources) Encounter for supervision of normal , unspecified, third trimester; Translations: [Encounter for supervision of normal , unspecified, unspecified trimester] Onset: 02-22-2022 Episodic Residual codes; unclassified (1 source) 20 weeks gestation of ; Translations: [20 WEEKS GESTATION OF ] Onset: 10-12-2021 Episodic Viral infection (1 source) COVID-19; Translations: [COVID-19] Onset: 10-12-2021 Results Test Name Value Interpretation Reference Range Facility Alanine aminotransferase [En zymatic activity/volume] in Serum or PlasmaOrdered By: Imad Asaad on 03-23-2023 ALT [Catalytic activity/Vol] 18 U/L 7-52 [facility] Albumin [Mass/volume] in Ser um or Plasma by Bromocresol green (BCG) dye binding methoOrdered By: Imad Asaad on 03-23-2023 Albumin BCG dye [Mass/Vol] 4.9 g/dL 3.5-5.7 [facility] Alkaline phosphatase [Enzyma tic activity/volume] in Serum or PlasmaOrdered By: Imad Asaad on 03-23-2023 ALP [Catalytic activity/Vol] 63 U/L 34-104 [facility] Aspartate aminotransferase [ Enzymatic activity/volume] in Serum or PlasmaOrdered By: Imad Asaad on 03-23-2023 AST [Catalytic activity/Vol] 17 U/L 13-39 [facility] Bilirubin.direct [Mass/volum e] in Serum or PlasmaOrdered By: Imad Asaad on 03-23-2023 Bilirubin.direct [Mass/Vol] 0.10 mg/dL 0.03-0.18 [facility] Bilirubin.total [Mass/volume ] in Serum or PlasmaOrdered By: Imad Asaad on 03-23-2023 Bilirubin [Mass/Vol] 0.6 mg/dL 0.3-1.0 [facility] Globulin Calc (S) [Mass/Vol] Ordered By: Imad Asaad on 03-23-2023 Globulin (S) [Mass/Vol] 2.8 g/dL [facility] Hepatic Panelon 03-23-2023 Albumin [Mass/Vol] 4.9 g/dL Normal 3.5-5.7 [facility] Comment on above: Performed By: #### L IPASE, HEPATIC #### [facility] [address] Albumin/Globulin [Mass ratio] 1.8 {ratio} Normal [facility] Comment on above: Performed By: #### L IPASE, HEPATIC #### [facility] [address] ALP [Catalytic activity/Vol] 63 U/L Normal 34-104 [facility] Comment on above: Performed By: #### L IPASE, HEPATIC #### [facility] [address] ALT [Catalytic activity/Vol] 18 U/L Normal 7-52 [facility] Comment on above: Performed By: #### L IPASE, HEPATIC #### [facility] [address] AST [Catalytic activity/Vol] 17 U/L Normal 13-39 [facility] Comment on above: Performed By: #### L IPASE, HEPATIC #### [facility] [address] Bilirubin [Mass/Vol] 0.6 mg/dL Normal 0.3-1.0 [facility] Comment on above: Performed By: #### L IPASE, HEPATIC #### [facility] [address] [place] [address] Bilirubin,Indirect 0.5 mg/dL Normal [facility] Comment on above: Performed By: #### L IPASE, HEPATIC #### [address] Bilirubin.indirect [Mass/Vol] 0.10 mg/dL Normal 0.03-0.18 [facility] Comment on above: Performed By: #### L IPASE, HEPATIC #### [facility] [address] Globulin (S) [Mass/Vol] 2.8 g/dL Normal [facility] Comment on above: Performed By: #### L IPASE, HEPATIC #### [facility] [address] Protein [Mass/Vol] 7.7 g/dL Normal 6.4-8.9 [facility] Comment on above: Performed By: #### L IPASE, HEPATIC #### [facility] [address] Lipaseon 03-23-2023 Lipase [Catalytic activity/Vol] 14.0 U/L Normal 11.0-82.0 [facility] Comment on above: Result Comment: PERF ORMED BY: [facility] [address] [facility] [address] PATHOLOGIST HOCKEY SCOUT LUNA ELIZALDE M.D. Performed By: #### L IPASE, HEPATIC #### [facility] [address] Lipase [Enzymatic activity/v olume] in Serum or PlasmaOrdered By: Imad Asaad on 03-23-2023 Lipase [Catalytic activity/Vol] 14.0 U/L 11.0-82.0 [facility] Protein [Mass/volume] in Ser um or PlasmaOrdered By: Imad Asaad on 03-23-2023 Protein [Mass/Vol] 7.7 g/dL 6.4-8.9 [facility] Serum or plasma albumin/glob ulin mass ratioOrdered By: Imad Asaad on 03-23-2023 Albumin/Globulin [Mass ratio] 1.8 {ratio} [facility] Serum or plasma non-glucuron idated bilirubin measurement (mass/volume)Ordered By: Imad Asaad on 03-23-2023 Bilirubin.indirect [Mass/Vol] 0.5 mg/dL [facility] CBC with Diffon 02-23-2022 Abs. Basophil <0.03 Normal 0.00-0.20 [facility] Comment on above: Performed By: #### C DP #### [facility] [address] [place] [address] Lpn Medical Assistant: Ender Lucas MD Abs.Imm.Granulocyte 0.04 k/uL Normal 0.00-0.30 [facility] Comment on above: Performed By: #### C DP #### [facility] [address] [place] [address] Lpn Medical Assistant: Ender Lucas MD Abs.Neutrophil (Seg) 5.13 k/uL Normal 1.50-8.10 [facility] Comment on above: Performed By: #### C DP #### [facility] [address] [place] [phone] Lpn Medical Assistant: Ender Lucas MD Basophils/100 WBC (Bld) 0 % Normal 0-2 [facility] Comment on above: Performed By: #### C DP #### [facility] [address] [place] [address] Dr[place], [place] [phone] Lpn Medical Assistant: Ender Lucas MD Eosinophils (Bld) [#/Vol] 0.06 10*3/uL Normal 0.00-0.44 [facility] Comment on above: Performed By: #### C DP #### [facility] [address] [place] [address] Dr[place], [facility] Lpn Medical Assistant: Ender Lucas MD Eosinophils/100 WBC (Bld) 1 % Normal 1-4 [facility] Comment on above: Performed By: #### C DP #### [address] [place], [facility] Lpn Medical Assistant: Ender Lucas MD Erythrocyte distribution width (RBC) [Ratio] 13.4 % Normal 11.8-14.4 [facility] Comment on above: Performed By: #### C DP #### [address] [place], [place] [phone] Lpn Medical Assistant: Ender Lucas MD Hematocrit (Bld) [Volume fraction] 36.6 % Normal 36.3-47.1 [facility] Comment on above: Performed By: #### C DP #### [address] [place], [facility] Lpn Medical Assistant: Ender Lucas MD Hemoglobin (Bld) [Mass/Vol] 12.4 g/dL Normal 11.9-15.1 [facility] Comment on above: Performed By: #### C DP #### [address] [place], [place] [phone] Lpn Medical Assistant: Ender Lucas MD Immature granulocytes/100 WBC (Bld) 1 % High 0 [facility] Comment on above: Performed By: #### C DP #### [facility] [address] [place], [place] [phone] Lpn Medical Assistant: Ender Lucas MD Lymphocytes (Bld) [#/Vol] 2.22 10*3/uL Normal 1.10-3.70 [facility] Comment on above: Performed By: #### C DP #### [facility] [address] [place], [facility] Lpn Medical Assistant: Ender Lucas MD Lymphocytes/100 WBC (Bld) 28 % Normal 24-43 [facility] Comment on above: Performed By: #### C DP #### [address] [place], [facility] Lpn Medical Assistant: Ender Lucas MD MCH (RBC) [Entitic mass] 30.2 pg Normal 25.2-33.5 [facility] Comment on above: Performed By: #### C DP #### [address] [place], [facility] Lpn Medical Assistant: Ender Lucas MD MCHC (RBC) [Mass/Vol] 33.9 g/dL Normal 28.4-34.8 [facility] Comment on above: Performed By: #### C DP #### [address] [place], [place] [address] Lpn Medical Assistant: Ender Lucas MD MCV (RBC) [Entitic vol] 89.1 fL Normal 82.6-102.9 [facility] Comment on above: Performed By: #### C DP #### [address] [place], [facility] Lpn Medical Assistant: Ender Lucas MD Monocytes (Bld) [#/Vol] 0.57 10*3/uL Normal 0.10-1.20 [facility] Comment on above: Performed By: #### C DP #### [address] [place], [place] [phone] Lpn Medical Assistant: Ender Lucas MD Monocytes/100 WBC (Bld) 7 % Normal 3-12 [facility] Comment on above: Performed By: #### C DP #### [facility] [address] [place], [place] [phone] Lpn Medical Assistant: Ender Lucas MD Neutrophil (Seg) 63 % Normal 36-65 [facility] Comment on above: Performed By: #### C DP #### [facility] [address] [place], [place] [phone] Lpn Medical Assistant: Ender Lucas MD NRBC Automated 0.0 per 100 WBC Normal 0.0 [facility] Comment on above: Performed By: #### C DP #### [facility] [address] [place], [place] [phone] Lpn Medical Assistant: Ender Lucas MD Platelet mean volume (Bld) [Entitic vol] 11.3 fL Normal 8.1-13.5 [facility] Comment on above: Performed By: #### C DP #### [address] [place], [place] [phone] Lpn Medical Assistant: Ender Lucas MD Platelets (Bld) [#/Vol] 196 10*3/uL Normal 138-453 [facility] Comment on above: Performed By: #### C DP #### [facility] [address] [place], [place] [phone] Lpn Medical Assistant: Ender Lucas MD RBC (Bld) [#/Vol] 4.11 10*6/uL Normal 3.95-5.11 [facility] Comment on above: Performed By: #### C DP #### [address] [place] [address] Lpn Medical Assistant: Ender Lucas MD WBC (Bld) [#/Vol] 8.0 10*3/uL Normal 3.5-11.3 [facility] Comment on above: Performed By: #### C DP #### [facility] [address] [place], [place] [phone] Lpn Medical Assistant: Ender Lucas MD Drug Scr, Abuse, Uron 2021 Amphetamine(s),Ur Negative Normal [facility] Comment on above: Performed By: #### D AU #### [facility] [address] [place], [place] [phone] Lpn Medical Assistant: Ender Lucas MD Barbiturate(s),Ur Negative Normal NEG [facility] Comment on above: Performed By: #### D AU #### [facility] [address] [place] [address] [place] [place], [place] [phone] Lpn Medical Assistant: Ender Lucas MD Benzodiazepine(s) Negative Normal NEG [facility] Comment on above: Performed By: #### D AU #### [facility] [address] [place], [place] [phone] Lpn Medical Assistant: Ender Lucas MD Buprenorphrine, Ur Negative Normal [facility] Comment on above: Performed By: #### D AU #### [facility] [address] [place] [address] [place], [place] [phone] Lpn Medical Assistant: Ender Lucas MD Cannabinoid(s),Ur Negative Normal [facility] Comment on above: Performed By: #### D AU #### [facility] [address] [place] [address] [place], [place] [phone] Lpn Medical Assistant: Ender Lucas MD Cocaine Metabolite Negative [facility] Comment on above: Performed By: #### D AU #### [facility] [address] [place], [place] [phone] Lpn Medical Assistant: Ender Lucas MD Methadone Ql (U) Negative Normal NEG [facility] Comment on above: Performed By: #### D AU #### [facility] [address] [place], [place] [phone] Lpn Medical Assistant: Ender Lucas MD Methamphetamine, Ur Negative Normal NEG [facility] Comment on above: Performed By: #### D AU #### [facility] [address] [place], [place] [phone] Lpn Medical Assistant: Ender Lucas MD Opiate(s), Ur Negative Normal NEG [facility] Comment on above: Performed By: #### D AU #### [facility] [address] [place], [place] [phone] Lpn Medical Assistant: Ender Lucas MD Oxycodone, Urine Negative Normal NEG [facility] Comment on above: Performed By: #### D AU #### [facility] [address] [place], [place] [phone] Lpn Medical Assistant: Ender Lucas MD Phencyclidine, Ur Negative Normal NEG [facility] Comment on above: Performed By: #### D AU #### [facility] [address] [place], [place] [phone] Lpn Medical Assistant: Ender Lucas MD Propoxyphene,Urine Negative Normal NEG [facility] Comment on above: Performed By: #### D AU #### [facility] [address] [place], [place] [phone] Lpn Medical Assistant: Ender Lucas MD Tricyclic antidepressants Screen Ql (U) Negative Normal NEG [facility] Comment on above: Result Comment: Drug screen results are to be used for medical purposes only. All positive results are unconfirmed. Testing for employment or legal uses should be sent to a reference laboratory for confirmation. Performed By: #### D AU #### [facility] [address] [place], [place] [phone] Lpn Medical Assistant: Ender Lucas MD Type + Screenon 02-23-2022 Type + Screen Sample Expiration 02/25/2022,2359 Arm Band Number [id number] ABO/Rh(D) A POSITIVE Antibody Screen NEGATIVE Normal [facility] Comment on above: Performed By: #### T YS #### [facility] [address] [place] [address] Lpn Medical Assistant: Ender Lucas MD US OB Growthon 02-10-2022 US OB Growth FINDINGS: Comparison made with prior examination of January 19, 2022 delivery at that was March 03, 2022. Prior examination of December 17, 2021 delivery at that time was February 27. A single, live intrauterine is present with normal cardiac rate of 132 beats per minute. Normal activity and amniotic fluid volume. Amniotic fluid index is 10.0 cm. Morphology is grossly normal. The cervix is long and closed, 4.8 cm. The placenta is anterior, Grade 3 not associated with the cervical os. The current sonographic age is 35 weeks and 5 days, based on the following measurements: BPD 8.6 cm (34weeks, 4 days) Head Circumference 31.9 cm (35 weeks,6 days) Abdominal Circumference 30.9 cm (34. weeks, 6 days) Femur Length 7.4 cm (37 weeks,5 days) Presentation Cephalic Placenta Anterior, Grade 3 Weight by percentile 13.1% These measurements result in an estimated date of delivery of March 12, 2022. The current estimated weight is 2753 grams +/- grams (6 pound, 1 ounces). IMPRESSION: 1. Single, live intrauterine , current sonographic age of 35 weeks and 5 days, with an estimated date of delivery of March 12, 2022. (Compared to both prior examinations of January 19, 2022 delivery was March 03, 2022, and December 17, 2021 examination delivery was February 27, 2022). 2. Weight 6 pounds 1 ounce. Percentile growth currently 13.1%. Prior examination of January 19, 2022 percentile of weight was 42.1%. 3. Qualitatively lower limits of amniotic fluid level. 4. Grade 3 anterior placenta. Report reported and signed by Otoniel Tiwari on 02/10/2022 0941 Normal [facility] Stewardess Supervisor US OB Growthon 01-19-2022 US OB Growth FINDINGS: Comparison made with prior examination of December 17, 2021, delivery at that time was February 27, 2022 and prior percentile weight was 19.8%. and prior RHIANNA was 13.0 cm. A single, live intrauterine is present with normal cardiac rate of 132 beats per minute. Normal activity and amniotic fluid volume. Amniotic fluid index is 4.0 cm.(subjectively low) New from the prior examination is distention of the stomach and bladder. Renal collecting systems are not distended. The cervix is long and closed, 5.4 cm. The placenta is anterior, not associated with the cervical os. The current sonographic age is 33 weeks and 6 days, based on the following measurements: BPD 8.4 cm (33 weeks,4 days) Head Circumference 30.0cm ( 32weeks, 5 days) Abdominal Circumference 30.2 cm ( 34weeks, 1 days) Femur Length 6.8 cm (35 weeks, 1 days) Presentation Cephalic Placenta Anterior Grade 2 Weight by percentile 42.1% These measurements result in an estimated date of delivery of March 03, 2022. The current estimated weight is 2495 grams +/- grams (5 pound, 8 ounces). IMPRESSION: Single, live intrauterine , current sonographic age of 33 weeks and 6 days, with an estimated date of delivery of March 03, 2022 prior examination of December 17, 2021 deliver at that time was February 27, 2022. 2. Prior examination of December 17, 2021 weight by percentile was 19.8% and on current examination is 42.1%. 3. Oligohydramnios new from the prior study. 4. Gastric and bladder distention new from the prior examination. Report reported and signed by Otoniel Tiwari on 01/20/2022 0923 Normal [facility] Stewardess Supervisor US OB Growthon 12-17-2021 US OB Growth FINDINGS: Comparison made with prior examination of October 16, 2021 delivery at that time was February 27, 2022. A single, live intrauterine is present with normal cardiac rate of 163 beats per minute. Normal activity and amniotic fluid volume. Amniotic fluid index is 13.0 cm. Morphology is grossly normal. The cervix is long and closed, 5.2 cm. The placenta is anterior, not associated with the cervical os. The current sonographic age is 29 weeks and 5 days, based on the following measurements: BPD 7.4 cm ( 29 weeks,3 days) Head Circumference 27.7 cm (30 weeks, 2 days) Abdominal Circumference 24.8 cm (29 weeks, 0 days) Femur Length 5.7cm 30 weeks, 0 days) Presentation Breech/footling Placenta Anterior, Grade 1 Weight by percentile 19.8 % These measurements result in an estimated date of delivery of February 27, 2022. The current estimated weight is 1408 grams +/- grams (3 pound, 2 ounces). IMPRESSION: 1. Single, live intrauterine , current sonographic age of 29 weeks and 5 days, with an estimated date of delivery of February 27, 2022. 2. 3 pounds 2, ounces, 19.8% weight by percentile. 3. Breech/footling presentation. Report reported and signed by Otoniel Tiwari on 12/17/2021 1218 Normal [facility] Specialist Q - ABO GROUP AND RH TYPEon 07-16-2021 ABO group Nom (Bld) A Normal [facility] Specialist Comment on above: Order Comment: [facility] performed at: [employer] [facility], [address] [place] [address], [address] [place] [address], [phone], Chinese Language Professor: Kel Alvarado MD [facility] Collection Date/Time: [facility] Results Received Date/Time: [facility] Reported Date/Time: Performed By: #### 6 399, %[place], 26027, 2782A, 265F, 1149T, 73584T, 4439, 6304R, 22152, 430A, 91043A, 64947 #### [facility] Default [address] [place] [address] RH TYPE Positive Normal [facility] Specialist Comment on above: Order Comment: [facility] performed at: [employer] [facility], [address] [facility], [address] [place] [address], [phone], Chinese Language Professor: Kel Alvarado MD [facility] Date/Time: [facility] Results Received Date/Time: [facility] Reported Date/Time: Result Comment: For additional information, please refer to http://education.[employer].IguanaFix/faq/WBR451 (This link is being provided for informational/ educational purposes only.) Performed By: #### 6 399, %[place], 41733, 2782A, 265F, 1149T, 57345X, 4439, 6304R, 14735, 430A, 22382Y, 07478 #### [facility] Default [address] [place] [address] Q - ANTIBODY SCREEN,RBC W/RE FL ID,TITER AND AGon 07-16-2021 ANTIBODY SCREEN, RBC W/REFL ID, TITER AND AG Detected Normal [facility] Comment on above: Order Comment: [facility] performed at: [place], [facility], [address] [facility], [address] [place] [address], [phone], Chinese Language Professor: Kel Alvarado MD [facility] Collection Date/Time: [facility] Results Received Date/Time: [facility] Reported Date/Time: Result Comment: Refe rence range No antibodies detected This assay is a screening test for the detection of red blood cell antibodies. The test is not to be used for pretransfusion screening or for the medical management of an alloimmunized . Performed By: #### 6 399, %[place], 54688, 2782A, 265F, 1149T, 90607C, 4439, 6304R, 60819, 430A, 72299J, 87098 #### [facility] Default [address] [place] [address] Q - CBC W/DIFF AND PLTon BASOABS 68 cells/uL Normal 0-200 [facility] Specialist Comment on above: Order Comment: [facility] performed at: [place], [facility], [address] [place] , [address] [place] [address], [phone], Chinese Language Professor: Kel Alvarado MD [facility] Collection Date/Time: [facility] Results Received Date/Time: [facility] Reported Date/Time: Performed By: #### 6 399, %[place], 26321, 2782A, 265F, 1149T, 60430W, 4439, 6304R, 40455, 430A, 03039V, 75783 #### [facility] Default [address] [place] [address] Basophils/100 WBC (Bld) 0.7 % Normal [facility] Comment on above: Order Comment: [facility] performed at: [place], [facility], [address] , [address] [place] [address], [address] [place] [address], Chinese Language Professor: Kel Alvarado MD [facility] Date/Time: [facility] Results Received Date/Time: [facility] Reported Date/Time: Performed By: #### 6 399, %[place], 11001, 2782A, 265F, 1149T, 09554V, 4439, 6304R, 85567, 430A, 11879F, 14169 #### [facility] Default [address] [place] [address] EOSABS 107 cells/uL Normal 15-500 [facility] Specialist Comment on above: Order Comment: [facility] performed at: [place], [facility], [address] [place] , [address] [place] [place] [address], [address] [place] [address], Chinese Language Professor: Kel Alvarado MD [facility] Date/Time: [facility] Results Received Date/Time: [facility] Reported Date/Time: Performed By: #### 6 399, %[place], 12411, 2782A, 265F, 1149T, 56781M, 4439, 6304R, 94037, 430A, 05110T, 62654 #### [facility] Default [address] [place] [address] Eosinophils/100 WBC (Bld) 1.1 % Normal [facility] Comment on above: Order Comment: [facility] Testing performed at: [place], [facility], [address] , [address] [place] [address], [address], Chinese Language Professor: Kel Alvarado MD [facility] Collection Date/Time: [facility] Results Received Date/Time: [facility] Reported Date/Time: Performed By: #### 6 399, %[place], 16393, 2782A, 265F, 1149T, 38803V, 4439, 6304R, 56259, 430A, 25421R, 65909 #### [facility] Default [address] [place] [address] Erythrocyte distribution width (RBC) [Ratio] 14.0 % Normal 11.0-15.0 [facility] Stewardess Supervisor Comment on above: Order Comment: [facility] performed at: [place], [facility], [address] [facility], [address] [place] [address], [address], Chinese Language Professor: Kel Alvarado MD [facility] Date/Time: [id number] [facility] Results Received Date/Time: [facility] Reported Date/Time: Performed By: #### 6 399, %[place], 12384, 2782A, 265F, 1149T, 38383U, 4439, 6304R, 21951, 430A, 04192I, 12922 #### [facility] Default [address] [place] [address] Hematocrit (Bld) [Volume fraction] 38.7 % Normal 35.0-45.0 [facility] Stewardess Supervisor Comment on above: Order Comment: [facility] performed at: [place], [facility], [address] , [address] [place] [address], [address], Chinese Language Professor: Kel Alvarado MD [facility] Collection Date/Time: [facility] Results Received Date/Time: [facility] Reported Date/Time: Performed By: #### 6 399, %[place], 92335, 2782A, 265F, 1149T, 86044G, 4439, 6304R, 02173, 430A, 96950T, 36989 #### [facility] Default [address] [place] [address] Hemoglobin (Bld) [Mass/Vol] 13.6 g/dL Normal 11.7-15.5 [facility] Stewardess Supervisor Comment on above: Order Comment: [facility] performed at: [place], [facility], [address] , [address] [place] [address], [address] [place] [address], Chinese Language Professor: Kel Alvarado MD [facility] Collection Date/Time: [facility] Results Received Date/Time: [facility] Reported Date/Time: Performed By: #### 6 399, %[place], 33627, 2782A, 265F, 1149T, 61801W, 4439, 6304R, 65727, 430A, 75911G, 46724 #### [facility] Default [address] [place] [address] Lymphocytes (Bld) [#/Vol] 2.512 10*3/uL Normal 850-3900 [facility] Stewardess Supervisor Comment on above: Order Comment: [facility] performed at: [place], [facility], [address] , [address] [place] [address], [address] [place] [address], Chinese Language Professor: Kel Alvarado MD [facility] Date/Time: [id number] [facility] Results Received Date/Time: [facility] Reported Date/Time: Performed By: #### 6 399, %[place], 56621, 2782A, 265F, 1149T, 63995Q, 4439, 6304R, 41022, 430A, 51680B, 29153 #### [facility] Default [address] [place] [address] Lymphocytes/100 WBC (Bld) 25.9 % Normal [facility] Specialist Comment on above: Order Comment: [facility] Testing performed at: [place], [facility], [address] , [address] [place] [address], [address] [place] [address], Chinese Language Professor: Kel Alvarado MD [facility] Collection Date/Time: Quest Results Received Date/Time: [facility] Reported Date/Time: Performed By: #### 6 399, %[place], 65677, 2782A, 265F, 1149T, 48373N, 4439, 6304R, 04004, 430A, 27320S, 56222 #### [facility] Default [address] [place] [address] MCH (RBC) [Entitic mass] 29.2 pg Normal 27.0-33.0 [facility] Stewardess Supervisor Comment on above: Order Comment: [facility] Testing performed at: [employer], [facility], [address] [place] [address], [address] [place] [address], [address] [place] [address], Chinese Language Professor: Kel Alvarado MD [facility] Collection Date/Time: [facility] Results Received Date/Time: Quest Reported Date/Time: Performed By: #### 6 399, %[place], 84774, 2782A, 265F, 1149T, 96994J, 4439, 6304R, 13602, 430A, 90936X, 75440 #### [facility] Default [address] [place] [address] MCHC (RBC) [Mass/Vol] 35.1 g/dL Normal 32.0-36.0 [facility] Comment on above: Order Comment: [facility] Testing performed at: [place], [facility], [address] [place] [address], [address] [place] [address], [address] [place] [address], Chinese Language Professor: Kel Alvarado MD [facility] Collection Date/Time: Quest Results Received Date/Time: [facility] Reported Date/Time: Performed By: #### 6 399, %[place], 47259, 2782A, 265F, 1149T, 38424W, 4439, 6304R, 60736, 430A, 48019X, 43035 #### [facility] Default [address] [place] [address] MCV (RBC) [Entitic vol] 83.0 fL Normal 80.0-100.0 [facility] Stewardess Supervisor Comment on above: Order Comment: [facility] performed at: [place], [facility], [address] [place] [address], [address] [place] [address], [address] [place] [address], Chinese Language Professor: Kel Alvarado MD [facility] Collection Date/Time: Quest Results Received Date/Time: Quest Reported Date/Time: Performed By: #### 6 399, %[place], 82636, 2782A, 265F, 1149T, 23351W, 4439, 6304R, 80147, 430A, 42203A, 11913 #### [facility] Default [address] [place] [address] MONOABS 747 cells/uL Normal 200-950 [facility] Comment on above: Order Comment: [facility] Testing performed at: [place], [facility], [address] [place] [address], [address] [place] [address], [address] [place] [address], Chinese Language Professor: Kel Alvarado MD [facility] Collection Date/Time: [facility] Results Received Date/Time: [facility] Reported Date/Time: Performed By: #### 6 399, %[place], 25251, 2782A, 265F, 1149T, 14404N, 4439, 6304R, 27604, 430A, 44385W, 07440 #### [facility] Default [address] [place] [address] Monocytes/100 WBC (Bld) 7.7 % Normal [facility] Comment on above: Order Comment: [facility] Testing performed at: [place], [facility], [address] [facility], [address] [place] [address], [address] [place] [address], Chinese Language Professor: Kel Alvarado MD [facility] Collection Date/Time: [facility] Results Received Date/Time: [facility] Reported Date/Time: Performed By: #### 6 399, %[place], 46194, 2782A, 265F, 1149T, 91130Y, 4439, 6304R, 45485, 430A, 91440R, 15296 #### [facility] Default [address] [place] [address] Neutrophils (Bld) [#/Vol] 6.266 10*3/uL Normal 6622-6694 [facility] Stewardess Supervisor Comment on above: Order Comment: [facility] Testing performed at: [place], [facility], [address] [facility], [address] [place] [address], [address], Chinese Language Professor: Kel Alvarado MD [facility] Collection Date/Time: [facility] Results Received Date/Time: [facility] Reported Date/Time: Performed By: #### 6 399, %[place], 84572, 2782A, 265F, 1149T, 68801S, 4439, 6304R, 44931, 430A, 61619K, 49001 #### [facility] Default [address] [place] [address] Neutrophils/100 WBC (Bld) 64.6 % Normal [facility] Comment on above: Order Comment: [facility] Testing performed at: [employer] [facility], [address] [facility], [address] [place] [address], [address], Chinese Language Professor: Kel Alvarado MD [facility] Collection Date/Time: [facility] Results Received Date/Time: [facility] Reported Date/Time: Performed By: #### 6 399, %[place], 56893, 2782A, 265F, 1149T, 57294U, 4439, 6304R, 57813, 430A, 74089M, 08779 #### [facility] Default [address] [place] [address] Platelet mean volume (Bld) [Entitic vol] 11.1 fL Normal 7.5-12.5 [facility] Stewardess Supervisor Comment on above: Order Comment: [facility] Testing performed at: [employer] [facility], [address] [facility], [address] [place] [address], [address], Chinese Language Professor: Kel Alvarado MD [facility] Collection Date/Time: [facility] Results Received Date/Time: [facility] Reported Date/Time: Performed By: #### 6 399, %[place], 43428, 2782A, 265F, 1149T, 15593B, 4439, 6304R, 07744, 430A, 60658X, 39316 #### [facility] Default [address] [place] [address] Platelets (Bld) [#/Vol] 245 10*3/uL Normal 140-400 [facility] Comment on above: Order Comment: [facility] Testing performed at: [place], [facility], [address] , [address] [place] [address], [address] [place] [address], Chinese Language Professor: Kel Alvarado MD [facility] Collection Date/Time: [facility] Results Received Date/Time: [facility] Reported Date/Time: Performed By: #### 6 399, %[place], 13231, 2782A, 265F, 1149T, 91118B, 4439, 6304R, 97835, 430A, 42715O, 71994 #### [facility] Default [address] [place] [address] RBC (Bld) [#/Vol] 4.66 10*6/uL Normal 3.80-5.10 [facility] Comment on above: Order Comment: [facility] Testing performed at: [employer] [facility], [address] , [address] [place] [address], [address] [place] [address], Chinese Language Professor: Kel Alvarado MD [facility] Collection Date/Time: [facility] Results Received Date/Time: [facility] Reported Date/Time: Performed By: #### 6 399, %[place], 18911, 2782A, 265F, 1149T, 22625P, 4439, 6304R, 35627, 430A, 72767B, 93538 #### [facility] Default [address] [place] [address] WBC (Bld) [#/Vol] 9.7 10*3/uL Normal 3.8-10.8 [facility] Comment on above: Order Comment: [facility] Testing performed at: [employer] [facility], [address], [address] [place], [address] [place] [address], Chinese Language Professor: Kel Alvarado MD [facility] Collection Date/Time: Quest Results Received Date/Time: [facility] Reported Date/Time: Performed By: #### 6 399, %[place], 20180, 2782A, 265F, 1149T, 09725K, 4439, 6304R, 68013, 430A, 35194V, 63973 #### [facility] Default [address] [place] [address] Q - CHLAMYDIA TRACHOMATIS/NE ISSERIA GONORRHOEAE RNA TMAon 07-16-2021 CHLAMYDIA TRACHOMATIS RNA, TMA, UROGENITAL Not detected Normal NOT DETECTED [facility] Stewardess Supervisor Comment on above: Order Comment: [facility] performed at: [place], [facility], [address], [address] [place] [address], [address] [place] [address], Chinese Language Professor: Kel Alvarado MD [facility] Collection Date/Time: [facility] Results Received Date/Time: [facility] Reported Date/Time: Performed By: #### 6 399, %[place], 72272, 2782A, 265F, 1149T, 84221Z, 4439, 6304R, 43650, 430A, 67956L, 19718 #### [facility] Default [address] [place] [address] COMMENT SEE NOTE Normal [facility] Stewardess Supervisor Comment on above: Order Comment: [facility] Testing performed at: [place], [facility], [address], [address] [place] [address], [address] [place] [address], Chinese Language Professor: Kel Alvarado MD [facility] Collection Date/Time: [facility] Results Received Date/Time: Quest Reported Date/Time: Result Comment: The analytical performance characteristics of this assay, when used to test SurePath(TM) specimens have been determined by [facility]. The modifications have not been cleared or approved by the FDA. This assay has been validated pursuant to the CLIA regulations and is used for clinical purposes. For additional information, please refer to https://education.Narr8.IguanaFix/faq/ROM102 (This link is being provided for information/ educational purposes only.) Performed By: #### 6 399, %[place], 95700, 2782A, 265F, 1149T, 39112L, 4439, 6304R, 58673, 430A, 74313H, 27731 #### [facility] Default [address] [place] [address] Result Comment: See Note 1 Note 1 This drug testing is for medical treatment only. Analysis was performed as non-forensic testing and these results should be used only by healthcare providers to render diagnosis or treatment, or to monitor progress of medical conditions. For assistance with interpreting these drug results, please contact a [facility] T[facility] Specialist: [phone] ( [phone] M-F, 8am-6pm EST. NEISSERIA GONORRHOEAE RNA, TMA, UROGENITAL Not detected Normal NOT DETECTED [facility] Stewardess Supervisor Comment on above: Order Comment: [facility] performed at: [place], [facility], [address] [facility], [address] [place] [address], [address], Chinese Language Professor: Kel Alvarado MD [facility] Date/Time: [id number] [facility] Results Received Date/Time: [id number] [facility] Reported Date/Time: [id number] Performed By: #### 6 399, %[place], 30683, 2782A, 265F, 1149T, 63168P, 4439, 6304R, 52983, 430A, 22542G, 57242 #### [facility] Default [address] [place] [address] Q - CULTURE,URINE,ROUTINEon 07-16-2021 CULTURE, URINE, ROUTINE SEE NOTE Normal [facility] Stewardess Supervisor Comment on above: Order Comment: [facility] performed at: [place], [facility], [address] , [address] [place] [address], [address], Chinese Language Professor: Kel Alvarado MD [facility] Date/Time: [id number] [facility] Results Received Date/Time: Quest Reported Date/Time: Result Comment: CULT URE, URINE, ROUTINE Micro Number: [id number] Test Status: Final Specimen Source: Urine Specimen Quality: Adequate Result: No Growth Performed By: #### 6 399, %[place], 55596, 2782A, 265F, 1149T, 32321I, 4439, 6304R, 17482, 430A, 87174D, 13398 #### [facility] Default [address] [place] [address] Q - DRUG TOX MONITORING CONFIRMATION,URINEon 07-16-2021 Amphetamines Negative Normal <500 [facility] Stewardess Supervisor Comment on above: Order Comment: [facility] performed at: [place], [facility], [address] [facility], [address] [place] [address], [address], Chinese Language Professor: Kel Alvarado MD [facility] Collection Date/Time: Quest Results Received Date/Time: [facility] Reported Date/Time: Performed By: #### 6 399, %[place], 40155, 2782A, 265F, 1149T, 31185L, 4439, 6304R, 94903, 430A, 52815C, 09102 #### [facility] Default [address] [place] [address] Barbiturates Negative Normal <300 [facility] Stewardess Supervisor Comment on above: Order Comment: [facility] performed at: [place], [facility], [address] , [address] [place] [address], [address], Chinese Language Professor: Kel Alvarado MD [facility] Collection Date/Time: Quest Results Received Date/Time: Quest Reported Date/Time: Performed By: #### 6 399, %[place], 47691, 2782A, 265F, 1149T, 23118A, 4439, 6304R, 75655, 430A, 64294W, 85590 #### [facility] Default [address] [place] [address] Benzodiazepines Negative Normal <100 [facility] Comment on above: Order Comment: [facility] Testing performed at: [place], [facility], [address] , [address] [place] [address], [address] [place] [address], Chinese Language Professor: Kel Alvarado MD [facility] Collection Date/Time: Quest Results Received Date/Time: [facility] Reported Date/Time: Performed By: #### 6 399, %[place], 44286, 2782A, 265F, 1149T, 72770W, 4439, 6304R, 16898, 430A, 96559M, 47523 #### [facility] Default [address] [place] [address] Cocaine Metabolite Negative Normal <150 [facility] Comment on above: Order Comment: [facility] Testing performed at: [employer] [facility], [address] , [address] [place] [address], [address] [place] [address], Chinese Language Professor: Kel Alvarado MD [facility] Collection Date/Time: Quest Results Received Date/Time: [facility] Reported Date/Time: Performed By: #### 6 399, %[place], 89073, 2782A, 265F, 1149T, 65302C, 4439, 6304R, 80041, 430A, 96845D, 47644 #### [facility] Default [address] [place] [address] Marijuana Metabolite 20 Negative Normal <20 [facility] Comment on above: Order Comment: [facility] performed at: [place], [facility], [address] , [address] [place] [address], [address] [place] [address], Chinese Language Professor: Kel Alvarado MD [facility] Collection Date/Time: Quest Results Received Date/Time: [facility] Reported Date/Time: Performed By: #### 6 399, %[place], 07335, 2782A, 265F, 1149T, 35238P, 4439, 6304R, 30322, 430A, 00389V, 46165 #### [facility] Default [address] [place] [address] Methadone Metabolite Negative Normal <100 [facility] Comment on above: Order Comment: [facility] performed at: [place], [facility], [address] [facility], [address] [place] [address], [address], Chinese Language Professor: Kel Alvarado MD [facility] Collection Date/Time: Quest Results Received Date/Time: [facility] Reported Date/Time: Performed By: #### 6 399, %[place], 07256, 2782A, 265F, 1149T, 12929I, 4439, 6304R, 94087, 430A, 08542X, 77504 #### [facility] Default [address] [place] [address] Opiates Negative Normal <100 [facility] Comment on above: Order Comment: [facility] performed at: [place], [facility], [address] , [address] [place] [address], [address], Chinese Language Professor: Kel Alvarado MD [facility] Collection Date/Time: [facility] Results Received Date/Time: [facility] Reported Date/Time: Performed By: #### 6 399, %[place], 43239, 2782A, 265F, 1149T, 92936T, 4439, 6304R, 87377, 430A, 99401H, 74978 #### [facility] Default [address] [place] [address] Oxycodone Negative Normal <100 [facility] Specialist Comment on above: Order Comment: [facility] performed at: [place], [facility], [address] , [address] [place] [address], [address], Chinese Language Professor: Kel Alvarado MD [facility] Collection Date/Time: [facility] Results Received Date/Time: [facility] Reported Date/Time: Performed By: #### 6 399, %[place], 62039, 2782A, 265F, 1149T, 75587X, 4439, 6304R, 26133, 430A, 20239R, 17797 #### [facility] Default [address] [place] [address] Phencyclidine Negative Normal <25 [facility] Stewardess Supervisor Comment on above: Order Comment: [facility] performed at: [place], [facility], [address] [facility], [address] [place] [address], [address] [place] [address], Chinese Language Professor: Kel Alvarado MD [facility] Collection Date/Time: [facility] Results Received Date/Time: [facility] Reported Date/Time: Performed By: #### 6 399, %[place], 97932, 2782A, 265F, 1149T, 66457N, 4439, 6304R, 54432, 430A, 03186M, 34881 #### [facility] Default [address] [place] [address] Q - HEPATITIS B SURFACE ANTI GEN W/ REFLEXon 07-16-2021 HEPATITIS B SURFACE ANTIGEN Non-Reactive Normal NON-REACTIVE [facility] Comment on above: Order Comment: [facility] performed at: [place], [facility], [address] [facility], [address] [place] [address], [address] [place] [address], Chinese Language Professor: Kel Alvarado MD [facility] Collection Date/Time: [facility] Results Received Date/Time: [facility] Reported Date/Time: Performed By: #### 6 399, %[place], 82512, 2782A, 265F, 1149T, 06043I, 4439, 6304R, 19458, 430A, 67638T, 79953 #### [facility] Default [address] [place] [address] Q - HIV 1/2 ANTIGEN/ANTIBODY ,FOURTH GENERATION W/RFLon 07-16-2021 HIV AG/AB, 4TH GEN Non-Reactive Normal NON-REACTIVE No [facility] Comment on above: Order Comment: [facility] performed at: [place], [facility], [address], [address] [place], [address], Chinese Language Professor: Kel Alvarado MD [facility] Collection Date/Time: [facility] Results Received Date/Time: [facility] Reported Date/Time: Result Comment: HIV- 1 antigen and HIV-1/HIV-2 antibodies were not detected. There is no laboratory evidence of HIV infection. PLEASE NOTE: This information has been disclosed to you from records whose confidentiality may be protected by state law. If your state requires such protection, then the state law prohibits you from making any further disclosure of the information without the specific written consent of the person to whom it pertains, or as otherwise permitted by law. A general authorization for the release of medical or other information is NOT sufficient for this purpose. For additional information please refer to http://education.Redknee/faq/IBJ880 (This link is being provided for informational/ educational purposes only.) The performance of this assay has not been clinically validated in patients less than 2 years old. Performed By: #### 6 399, %[place], 88424, 2782A, 265F, 1149T, 22554V, 4439, 6304R, 17686, 430A, 05418H, 71589 #### [facility] Default [address] [place] [address] Q - RPR (MONITOR) W/RFX TITE Moreno 07-16-2021 RPR (MONITOR) W/REFL TITER Non-Reactive Normal NON-REACTIVE [facility] Stewardess Supervisor Comment on above: Order Comment: [facility] performed at: [place], [facility], [address], [address] [facility], [place], [address], Chinese Language Professor: Kel Alvarado MD [facility] Date/Time: [facility] Results Received Date/Time: [facility] Reported Date/Time: Performed By: #### 6 399, %[place], 54405, 2782A, 265F, 1149T, 46622I, 4439, 6304R, 72102, 430A, 61455A, 66874 #### [facility] Default [address] [place] [address] Q - UR CULT [id number] 2021 NOTE SEE NOTE Normal [facility] Stewardess Supervisor Comment on above: Order Comment: [facility] performed at: [employer], [facility], [address] , [address] [place] [address], [address], Chinese Language Professor: Kel Alvarado MD [facility] Date/Time: [facility] Results Received Date/Time: [facility] Reported Date/Time: Result Comment: This urine was analyzed for the presence of WBC, RBC, bacteria, casts, and other formed elements. Only those elements seen were reported. Performed By: #### 6 399, %[place], 68830, 2782A, 265F, 1149T, 17271D, 4439, 6304R, 78622, 430A, 32653U, 37522 #### [facility] Default [address] [place] [address] Q - URINALYSIS WITH REFLEX T O MICROSCOPICon 07-16-2021 Appearance (U) CLEAR Normal CLEAR [facility] Stewardess Supervisor Comment on above: Order Comment: [facility] performed at: [place], [facility], [address], [address] [place] [address], [address], Chinese Language Professor: Kel Alvarado MD [facility] Date/Time: [facility] Results Received Date/Time: [facility] Reported Date/Time: Performed By: #### 6 399, %[place], 14678, 2782A, 265F, 1149T, 75643O, 4439, 6304R, 88028, 430A, 55653I, 69379 #### [facility] Default [address] [place] [address] BACTERIA FEW Abnormal NONE SEEN [facility] Stewardess Supervisor Comment on above: Order Comment: [facility] Testing performed at: [place], [facility], [address] , [address] [place] [address], [address] [place] [address], Chinese Language Professor: Kel Alvarado MD [facility] Collection Date/Time: Quest Results Received Date/Time: Quest Reported Date/Time: Performed By: #### 6 399, %[place], 58102, 2782A, 265F, 1149T, 77777C, 4439, 6304R, 83461, 430A, 70738E, 08852 #### [facility] Default [address] [place] [address] Bilirubin Ql (U) Negative Normal NEGATIVE [facility] Specialist Comment on above: Order Comment: [facility] Testing performed at: [facility], [facility], [address] [place] [address], [address] [place] [address], [address] [place] [address], Chinese Language Professor: Kel Alvarado MD [facility] Collection Date/Time: [facility] Results Received Date/Time: [facility] Reported Date/Time: Performed By: #### 6 399, %[place], 56109, 2782A, 265F, 1149T, 73604U, 4439, 6304R, 24147, 430A, 89846W, 31774 #### [facility] Default [address] [place] [address] Color (U) YELLOW Normal YELLOW [facility] Specialist Comment on above: Order Comment: [facility] performed at: [facility] [place], [facility], [address] , [address] [place] [address], [address] [place] [address], Chinese Language Professor: Kel Alvarado MD [facility] Collection Date/Time: [facility] Results Received Date/Time: [facility] Reported Date/Time: Performed By: #### 6 399, %[place], 37133, 2782A, 265F, 1149T, 34168U, 4439, 6304R, 25255, 430A, 56134J, 14558 #### [facility] Default [address] [place] [address] Glucose Ql (U) Negative Normal NEGATIVE [facility] Stewardess Supervisor Comment on above: Order Comment: [facility] Testing performed at: [employer], [facility], [address], [address] [place] [address], [phone], Chinese Language Professor: Kel Alvarado MD [facility] Collection Date/Time: [facility] Results Received Date/Time: [facility] Reported Date/Time: Performed By: #### 6 399, %[place], 36858, 2782A, 265F, 1149T, 62276G, 4439, 6304R, 75446, 430A, 83710C, 61344 #### [facility] Default [address] [place] [address] HYALINE CAST NONE SEEN Normal NONE SEEN [facility] Stewardess Supervisor Comment on above: Order Comment: [facility] Testing performed at: [place], [facility], [address], [address] [place] [address], [address], Chinese Language Professor: Kel Alvarado MD [facility] Collection Date/Time: [facility] Results Received Date/Time: [facility] Reported Date/Time: Performed By: #### 6 399, %[place], 09423, 2782A, 265F, 1149T, 13176T, 4439, 6304R, 76786, 430A, 09358X, 02720 #### [facility] Default [address] [place] [address] Ketones Ql (U) Negative Normal NEGATIVE [facility] Stewardess Supervisor Comment on above: Order Comment: [facility] Testing performed at: [place], [facility], [address], [address] [place] [address], [address], Chinese Language Professor: Kel Alvarado MD [facility] Collection Date/Time: [facility] Results Received Date/Time: [facility] Reported Date/Time: Performed By: #### 6 399, %[place], 20148, 2782A, 265F, 1149T, 73970D, 4439, 6304R, 58538, 430A, 26790U, 98493 #### [facility] Default [address] [place] [address] Leukocyte esterase Test strip Ql (U) 2+ Abnormal NEGATIVE [facility] Stewardess Supervisor Comment on above: Order Comment: [facility] Testing performed at: [place], [facility], [address] [facility], [address] [place] [address], [address] [place] [address], Chinese Language Professor: Kel Alvarado MD [facility] Collection Date/Time: [facility] Results Received Date/Time: [facility] Reported Date/Time: Performed By: #### 6 399, %[place], 96604, 2782A, 265F, 1149T, 29016L, 4439, 6304R, 27736, 430A, 05837Y, 53698 #### [facility] Default [address] [place] [address] Nitrite Ql (U) Negative Normal NEGATIVE [facility] Stewardess Supervisor Comment on above: Order Comment: [facility] Testing performed at: [employer] [facility], [address] , [address] [place] [address], [address] [place] [address], Chinese Language Professor: Kel Alvarado MD [facility] Collection Date/Time: Quest Results Received Date/Time: Quest Reported Date/Time: Performed By: #### 6 399, %[place], 71590, 2782A, 265F, 1149T, 74941H, 4439, 6304R, 11827, 430A, 51380S, 27658 #### [facility] Default [address] [place] [address] OCCULT BLOOD Negative Normal NEGATIVE [facility] Stewardess Supervisor Comment on above: Order Comment: [facility] Testing performed at: [employer] [facility], [address] [facility], [address] [place] [address], [address] [place] [address], Chinese Language Professor: Kel Alvarado MD [facility] Collection Date/Time: Quest Results Received Date/Time: [facility] Reported Date/Time: Performed By: #### 6 399, %[place], 83899, 2782A, 265F, 1149T, 41245G, 4439, 6304R, 29832, 430A, 20008M, 01870 #### [facility] Default [address] [place] [address] pH (U) 7.0 [pH] Normal 5.0-8.0 [facility] Stewardess Supervisor Comment on above: Order Comment: [facility] Testing performed at: [place], [facility], [address] [facility], [address] [place] [address], [address] [place] [address], Chinese Language Professor: Kel Alvarado MD [facility] Collection Date/Time: Quest Results Received Date/Time: Quest Reported Date/Time: Performed By: #### 6 399, %[place], 60935, 2782A, 265F, 1149T, 01642C, 4439, 6304R, 85113, 430A, 44388A, 99891 #### [facility] Default [address] [place] [address] Protein Ql (U) Negative Normal NEGATIVE [facility] Stewardess Supervisor Comment on above: Order Comment: [facility] Testing performed at: [place], [facility], [address] [facility], [address] [place] [address], [address] [place] [address], Chinese Language Professor: Kel Alvarado MD Quest Collection Date/Time: Quest Results Received Date/Time: Quest Reported Date/Time: Performed By: #### 6 399, %[place], 53981, 2782A, 265F, 1149T, 64039M, 4439, 6304R, 09835, 430A, 80027H, 71475 #### [facility] Default [address] [place] [address] RBC NONE SEEN Normal < OR = 2 [facility] Stewardess Supervisor Comment on above: Order Comment: [facility] Testing performed at: [place], [facility], [address] [facility], [address] [place] [address], [address] [place] [address], Chinese Language Professor: Kel Alvarado MD Quest Collection Date/Time: Quest Results Received Date/Time: Quest Reported Date/Time: Performed By: #### 6 399, %[place], 14272, 2782A, 265F, 1149T, 19303Y, 4439, 6304R, 08419, 430A, 51033Q, 54203 #### [facility] Default [address] [place] [address] Specific gravity (U) [Rel density] 1.007 Normal 1.001-1.035 [facility] Stewardess Supervisor Comment on above: Order Comment: [facility] Testing performed at: [employer], [facility], [address] [facility], [address] [place] [address], [address] [place] [address], Chinese Language Professor: Kel Alvarado MD Quest Collection Date/Time: Quest Results Received Date/Time: Quest Reported Date/Time: Performed By: #### 6 399, %[place], 14766, 2782A, 265F, 1149T, 26803H, 4439, 6304R, 65361, 430A, 75139F, 79946 #### [facility] Default [address] [place] [address] SQUAMOUS EPITHELIAL CELLS 0-5 Normal < OR = 5 [facility] Stewardess Supervisor Comment on above: Order Comment: [facility] Testing performed at: [facility] [place], [facility], [address] , [address] [place] [address], [address], Chinese Language Professor: Kel Alvarado MD [facility] Collection Date/Time: Quest Results Received Date/Time: Quest Reported Date/Time: Performed By: #### 6 399, %[place], 15875, 2782A, 265F, 1149T, 11660W, 4439, 6304R, 49386, 430A, 09000K, 39959 #### [facility] Default [address] [place] [address] WBC NONE SEEN Normal < OR = 5 [facility] Stewardess Supervisor Comment on above: Order Comment: [facility] Testing performed at: [place], [facility], [address], [address] [place], [address], Chinese Language Professor: Kel Alvarado MD [facility] Collection Date/Time: [id number] Quest Results Received Date/Time: [facility] Reported Date/Time: Performed By: #### 6 399, %[place], 44674, 2782A, 265F, 1149T, 10858Y, 4439, 6304R, 93110, 430A, 79461V, 98473 #### [facility] Default [address] [place] [address] Q - VARICELLA-ZOSTER AB (IGG )on 07-16-2021 VARICELLA ZOSTER VIRUS ANTIBODY (IGG) 170.80 index Normal [facility] io Stewardess Supervisor Comment on above: Order Comment: [facility] Testing performed at: [place], [facility], [address], [address] [place], [address], Chinese Language Professor: Kel Alvarado MD [facility] Collection Date/Time: [id number] [facility] Results Received Date/Time: [facility] Reported Date/Time: Result Comment: Inde x Interpretation --------- <135.00 Negative - Antibody not detected 135.00 - 164.99 Equivocal > or = 165.00 Positive - Antibody detected A positive result indicates that the patient has antibody to VZV but does not differentiate between an active or past infection. The clinical diagnosis must be interpreted in conjunction with the clinical signs and symptoms of the patient. This assay reliably measures immunity due to previous infection but may not be sensitive enough to detect antibodies induced by vaccination. Thus, a negative result in a vaccinated individual does not necessarily indicate susceptibility to VZV infection. A more sensitive test for vaccination-induced immunity is Varicella Zoster Virus Antibody Immunity Screen, ACIF. Performed By: #### 6 399, %[place], 97321, 2782A, 265F, 1149T, 20652S, 4439, 6304R, 39202, 430A, 44157D, 65110 #### [facility] Default [address] [place] [address] US OB 1ST Trimesteron 2021 US OB 1ST Trimester FINDINGS: A single intrauterine gestational sac is present. No subchorionic hemorrhage. A single pole is present. Normal heart rate at 163 beats per minute. Yolk sac also is seen. Current sonographic age is 8 weeks and 1 day based on the crown-rump length measurement of 1.7 cm. Based on this age, current estimated date of delivery is February 24, 2022. No pelvic fluid or adnexal mass present. Cervical length is 4 cm, closed. IMPRESSION: Findings consistent with a live intrauterine gestation, current sonographic age of 8 weeks and 1 day resulting in an estimated date of delivery of February 24, 2022. Report reported and signed by Otoniel Tiwari on 07/16/2021 1215 Normal [facility] Stewardess Supervisor Vital Signs Date Time Vital Sign Value Performing Clinician Alei jeannine 03-23-2023 13:00-0500 Body height 149.86 cm Imad Asaad Other [employer] Other 03-23-2023 13:00-0500 Body mass index (BMI) [Ratio] 30.7 kg/m2 Imad Asaad Other [employer] Other 03-23-2023 13:00-0500 Body weight 68.95 kg Imad Asaad Other [employer] Other 03-23-2023 13:00-0500 Diastolic blood pressure 75 mm[Hg] Imad Asaad Other [employer] Other 03-23-2023 13:00-0500 Systolic blood pressure 124 mm[Hg] Imad Asaad Other [employer] Other Encounters Encounter Date Encounter Type Care Provider Facility Start: 03-23-2023 End: 03-23-2023 ambulatory Imad Asaad Facility:[facility] Start: 03-23-2023 Office outpatient ne w 45 minutes Imad Asaad [facility] Start: 03-23-2023 End: 03-23-2023 ambulatory PHYSICIAN NO [facility] [employer] Other Start: 03-23-2023 End: 03-23-2023 Patient encounter procedure PHYSICIAN NO [facility] [place] Work Phone: Start: 02-22-2022 End: 02-25-2022 Evaluation and management of inpatient [facility] Start: 10-09-2021 End: 10-09-[address] TOURE [facility] Facility:H1 Procedures Date Procedure Procedure Detail Performing Clinician Start: 07-16-2021 Antibody rubella Comment on above: Order Comment: [facility] Testing performed at: [facility] [place], [facility], [address] [place] [address], [address] [place] [address], [address], Chinese Language Professor: Kel Alvarado MD [facility] Collection Date/Time: [id number] [facility] Results Received Date/Time: [facility] Reported Date/Time: [id number] Result Comment: Inde x Interpretation ----- <0.90 Not consistent with immunity 0.90-0.99 Equivocal > or = 1.00 Consistent with immunity The presence of rubella IgG antibody suggests immunization or past or current infection with rubella virus. Performed By: #### 6 399, %[place], 45388, 2782A, 265F, 1149T, 33473W, 4439, 6304R, 96767, 430A, 87948U, 58384 #### [facility] Default [address] [place] [address] Plan of Treatment Date Care Activity Detail Author Start: 03-23-2023 [facility] Endomysial antibody IgA level [facility] Gliadin peptide IgA Ab [Units/volume] in Serum [facility] Gliadin peptide IgG Ab [Units/volume] in Serum [facility] IgA [Mass/volume] in Serum or Plasma [facility] Tissue transglutamin ase IgA Ab [Units/volume] in Serum [facility] Tissue transglutamin ase IgG Ab [Units/volume] in Serum [facility] Payers Date Payer Category Payer Self-pay 2000 Unknown [id number] 1998 Unknown [id number] 1959 Private Health Insurance [id number] 1961 Unknown [id number] Unknown [id number] Social History Date Type Detail Facility Tobacco smoking status NHIS Unknown if ever smoked [employer] Other Start: 2000 Sex Assigned At Female F [facility] Sex Assigned At Sex Assigned At Bir th [employer] Other Evaluation note 03-23-2023 Note Date & Type Note Facility 03-23-2023 Evaluation note Encounter Date Diagnosis Assessment Notes Mar, GERD (gastroesopha geal reflux disease) (ICD-10 - K21.9) Mar, Abdominal pain (ICD-10 - R10.9) [employer] Other Clinical Note 10-16-2021 Note Date & Type Note Facility 10-16-2021 Note FINDINGS: Comparison made with prior ultrasound evaluation July 16, 2021. A single, live intrauterine is present with normal cardiac rate of 138 beats per minute. Normal activity and amniotic fluid volume. Amniotic fluid index is 14 cm. Morphology is grossly normal. Transverse lie, head directed to the maternal left. The cervix is long and closed, 7.7 cm. The placenta is anterior, not associated with the cervical os. The current sonographic age is 20 weeks and 6 days, based on the following measurements: BPD 4.8 cm (20 weeks, 4 days) Head Circumference 18.0 cm (20 weeks, 3 days) Abdominal Circumference 15.9 cm (21 weeks, 0 days) Femur Length 3.7 cm (21 weeks, 4 days) Presentation Transverse lie Placenta Anterior Weight (g) by [id number] % * These measurements result in an estimated date of delivery of February 27, 2022. The current estimated weight is 406 grams (0 pounds, 14 ounces). IMPRESSION: 1. Single, live intrauterine , current sonographic age of 20 weeks and 6 days, with an estimated date of delivery of February 27, 2022 (prior LÓPEZ February 24, 2022) 2. Current estimated weight 406 grams (0 pounds, 14 ounces) * Estimated Weight (g) by Percentile is based upon an accurate estimated age based on last menstrual period. Report reported and signed by Otoniel Tiwari on 10/16/2021 1530 [facility] Stewardess Supervisor Evaluation note Note Date & Type Note Facility Evaluation note No assessment information availa [facility] Work Phone: Summary Purpose Family History No Family History Records FoundNo Family History Records FoundNo Family History Records FoundNo Family History Records Found Advance Directives No Advanced Directives Records Found Advance Directive Response Recorded Date/ Time Advance Directives No March 23, 2023 2:01pm Chief Complaint and Reason for Visit Chief Complaint r10.9 Additional Source Comments INFORMATION SOURCE (unrecogn ized section and content) DATE CREATED AUTHOR 10/12/2021 [facility] DATE CREATED AUTHOR AUTHOR'S ORGANIZ ATION 02/10/2022 [facility] dical Specialist DATE CREATED AUTHOR AUTHOR'S ORGANIZ ATION 02/25/2022 [facility] DATE CREATED AUTHOR AUTHOR'S ORGANIZ ATION 03/24/2023 [facility] Care Teams (unrecognized sec tion and content) Team Status: Active Member Role Status Dates PHYSICIAN NO FAMILY Primary Care Provider Active Team Status: Inactive Member Role Status Dates PHYSICIAN NO FAMILY Primary Care Provider Active Leda Natarajan MD Attending Provider Active Goals (unrecognized section and content) Goals may be documented in a n alternate sectionNo Information REASON FOR VISIT (unrecogniz ed section and content) PATIENT IS HERE WITH COMPLAI NTS OF GERD AND ABDOMINAL PAIN FOR RECORDS PERTAINING TO PATIENTS WHO ARE OR HAVE BEEN ENROLLED IN A CHEMICAL DEPENDENCY/SUBSTANCEABUSE PROGRAM, SOME INFORMATION MAY BE OMITTED. This clinical summary was aggregated from multiple sources. Caution should be exercised in using it in the provision of clinical care. This summary normalizes information from multiple sources, and as a consequence, information in this document may materially change the coding, format and clinical context of patient data. In addition, data may be omitted in some cases. CLINICAL DECISIONS SHOULD BE BASED ON THE PRIMARY CLINICAL RECORDS. [employer] [facility]. provides no warranty or guarantee of the accuracy or completeness of information in this document.
--- NOTE | 2023-03-25 13:58 | P.GSPN_ITS ---
Progress Note: A&P Assessment and Plan (1) Acute cholecystitis: Assessment and Plan: doing well; (2) Abdominal pain: (3) Obesity: Plan saline lock IV, d/c Zosyn; advance diet as tolerated; swith to [place] prn and scheduled ibuprofen for pain control; can discharge later today if continues to do well; patient to learn drain care, empty/record drainage daily; wear abd binder at all times except when showering; f/u with me in [place] office next week. Subjective Subjective Interval history: POD # 1 s/p open cholecystectomy; doing well; pain controlled; no N/V; tolerating full liquid diet; voiding well; minimal drain output. Exam Narrative Exam Narrative: abd: soft, nondistended, incisions without erythema or drainage; no ecchymoses; normal bs; rona with minimal serosanguineous drainage. Constitutional Vital Signs, click to edit/add: Last Vital Signs Temp 98.6 F 03/25/23 04:37 Pulse 84 03/25/23 04:37 Resp 18 03/25/23 07:16 BP 119/79 03/25/23 04:37 Pulse Ox 92 L 03/25/23 10:48 O2 Del Method Nasal Cannula 03/25/23 10:48 O2 Flow Rate 1 03/25/23 10:48 Urinary Catheter Management Urinary Catheter Management Straight: Cath placed during this visit: no
[2023-03-25] MEDS: HYDROCODONE/ACET 5-325 MG TABLET 1 TAB PO (14:02)
--- NOTE | 2023-03-25 15:07 | P.DS_ITS ---
DS: Providers Provider Date of admission: 03/24/23 02:14 Primary care physician: Non-Staff Physician, DS: Diagnosis Discharge Diagnosis (1) Acute cholecystitis: (2) Abdominal pain: (3) Obesity: DS: Summary Hospital Course Hospital Course: Reason for admission: See H&P for details. 22 y/o female to ER with abdominal pain. C/o pain off and on for several months. Frequent pain in epigastric region and upper abdomen. Frequent episodes of nausea and emesis. Seen by GI and testing ordered. Added pepcid but no change in symptoms. Developed severe pain in RUQ and radiated to back. Severe nausea and emesis and to ER. WBC elevated at 19.[address] showed gallstones and signs of cholecystitis. US gallbladder showed acute cholecystitis and admitted. Hospital course: Started zosyn and IV fluids. General surgery consulted. Patient denies any past medical history and no home medication. Taken to OR for lap armaan and converted to open cholecystectomy. Patient did well after surgery. Started clear liquid diet and tolerated well. Ambulating in [place]. Pain controlled with medication. Advanced to regular diet and did well. Discharged home in stable condition. Use norco PRN pain. F/u with surgery in 1 weeks. Time Spent with Patient Time attestation: Total time spent providing and/or coordinating discharge services: Exam Constitutional Vital Signs, click to edit/add: Last Vital Signs Temp 98.4 F 03/25/23 14:00 Pulse 88 03/25/23 14:00 Resp 18 03/25/23 14:00 BP 112/70 03/25/23 14:00 Pulse Ox 94 L 03/25/23 14:00 O2 Del Method Room Air 03/25/23 14:00 O2 Flow Rate 1 03/25/23 10:48 Documenting provider has reviewed patient's vital signs: yes Common normals: no apparent distress, oriented x3 and alert HENMT Common normals: normocephalic Eye Common normals: PERRL and EOMs intact bilaterally Respiratory Common normals: normal respiratory effort and clear to auscultation bilaterally Cardio Common normals: regular rate, regular rhythm, no gallops, no murmurs and no rub GI Common normals: Normal to inspection, nondistended, normoactive bowel sounds present Palpation: tender (Appropriately tender) Extremity Common normals: no pedal edema DS: Data Data Completed and Pending Labs on day of discharge: Labs from last 24 hours 03/25/23 04:11 WBC 17.1 H RBC 3.94 L Hgb 11.1 L Hct 34.6 L MCV 87.8 MCH 28.2 MCHC 32.1 RDW 13.1 Plt Count 225 MPV 11.0 Neut % (Auto) 85.6 H Lymph % (Auto) 6.0 L [place] % (Auto) 7.8 Eos % (Auto) 0.0 L Baso % (Auto) 0.1 L Neut # (Auto) 14.7 H Lymph # (Auto) 1.0 L [place] # (Auto) 1.3 H Eos # (Auto) 0.0 Baso # (Auto) 0.0 Abs Immat Gran (auto) 0.09 H Imm/Tot Granulo (auto) 0.5 Sodium 136 Potassium 3.6 Chloride 105 Carbon Dioxide 26.0 Anion Gap 8.6 BUN 10.0 Creatinine 0.51 L Est GFR ( Amer) >60 Est GFR (Non-Af Amer) >60 BUN/Creatinine Ratio 19.6 Glucose 102 Calcium 8.2 L Total Bilirubin 1.0 AST 126 H ALT 184 H Alkaline Phosphatase 96 Total Protein 5.9 L Albumin 2.7 L Globulin 3.2 Albumin/Globulin Ratio 0.8 Discharge Plan Discharge Disposition: Home, Self-Care Condition: Good Discharge Medications: New hydrocodone-acetaminophen 5-325 mg Tablet 1 tab PO Q4H PRN (Reason: Pain Scale 4-6) Qty: 20 0RF Continued pantoprazole 20 mg tablet,delayed release (DR/EC) 20 mg PO Q12H Activity: other Activity Detail: no lifting > 10 lbs; may shower, no tub baths; wear abdominal binder at all times except when showering. take ibuprofen scheduled with food. No work until released by general surgeon Diet: advance to your usual diet Patient Instructions: Hydrocodone/Acetaminophen (By mouth) (Vicodin, [place], Lortab), Pantoprazole (By mouth), Open Cholecystectomy (DC), Open Cholecystectomy (GEN) Forms: Portal Instructions Follow Up Appointments: @ 2:40pm with Dr. Krista Mercado [facility] [phone]
--- NOTE | 2023-03-28 16:07 | CM.DCFOLLOWU ---
Person spoke with: patient How are you feeling? well How is your pain? no pain Did you understand your discharge instructions? yes Do you have any questions about your discharge instructions? no Were you given any prescriptions at discharge? yes Were you able to get your prescriptions filled? yes Do you understand how to take your medications as ordered? yes Do you have any questions about your follow up appointment and do you plan to keep your follow up appointment? no questions, keeping follow up with Dr. Garber on 03/30/22 Is there anything else that you would like to discuss? no Questions/Comments/Concerns/Other:
== END 2023-03-25 15:19 | disposition home or self-care (01) | DRG 416 ==
LOC: ER 03-24 01:31 → MS 03-24 07:48
PROVIDERS: Nurse Practitioner; Nurse Practitioner Acute Care; Physician Assistant; Surgery; Admitting Provider Family Medicine; Emergency Provider Emergency Medicine; Visit Provider Family Medicine
PROC: 0FB40ZZ Excision of Gallbladder, Open Approach (ICD-10-PCS; principal; 2023-03-24 12:30)
DX: K80.13 Calculus of gallbladder with acute and chronic cholecystitis with obstruction (principal); K82.A1 Gangrene of gallbladder in cholecystitis; Z53.31 Laparoscopic surgical procedure converted to open procedure; K21.9 Gastro-esophageal reflux disease without esophagitis; E66.9 Obesity, unspecified; Z68.31 Body mass index [BMI] 31.0-31.9, adult; Z79.899 Other long term (current) drug therapy
CPT/HCPCS: 36415; 74177; 76000; 76705; 80048; 80053; 81001; 83605; 83690; 84703; 85025; 87070; 87205; 88304; 94667; 96361; 96365; 96366; 96375; 96376; 99285; 99999; J0330; J0665; J1100; J1170; J1885; J2250; J2270; J2371; J2405; J2543; J2704; J3010; Q9967

== ENCOUNTER 2023-05-04 12:17 | Emergency (ER) | payer OTHER, SELFPAY ==
[2023-05-04] VITALS (30 sets, daily range): BP systolic 114–150; BP diastolic 65–98; PULSE 74–91; RESP 18; TEMP 36.8; O2SAT 95–98; BMI 29.3
--- OUTSIDE RECORDS SUMMARY | 2023-05-04 12:28 | XMS_ITS | CCD ---
Author Name Unknown Address [address] [facility] [address] [place] [address] Organization [facility] Care Team Providers Care Pressure Supervisor Name Role Phone JAMES, DR TOURE Admitting Unavailable MISC, DR TOURE Attending Unavailable JAMES, DR TOURE Primary Care Unavailable MEGANC, DR TOURE Consulting Unavailable TONI SCHAEFER Attending Unavailable TONI SCHAEFER Admitting Unavailable NO FAMILY, PHYSICIAN Primary Care Provider Unava ilalonzo Ntaarajan MD Imad Attending Provider [phone] Asaad, Imad Unavailable Jhonathanad Imulices Attending Unavailable Asaad, Imad Admitting Unavailable NO FAMILY, PHYSICIAN Primary Care Unavailable Amilcar MORENO Attending Unavailable NONE, XXXX Primary Care Physician Unavailab le Allergies Allergy Classification Reported Allergen(s) Allergy Type Date of Onset Reaction(s) Facility (1 source) No Known Medication Allergies; Translations: [No Known Medication Allergies] Propensity to adverse reactions (disorder) [facility] Repository Medications Current Medications Medication Drug Class(es) Dates Sig (Normalized) Sig (Original) pantoprazole 20 mg delayed release oral tablet (1 source) Proton Pump Inhibitor Start: 03-23-2023 take 1 tablet by mouth twice daily Pantoprazole Sodium 20 MG 1 tablet Orally Twice daily for 30 days Mar, Active Problems Active Problems Problem Classification Problem Date Documented Date Episodic/Chronic Abdominal pain (2 sources) Abdominal pain; Translations: [Unspecified abdominal pain] Episodic Biliary tract disease (2 sources) Chronic cholecystitis with calculus; Translations: [Calculus of gallbladder with chronic cholecystitis with obstruction] Onset: 04-06-2023 Episodic Esophageal disorders (2 sources) Gastroesophageal reflux disease; Translations: [Gastro-esophageal reflux disease without esophagitis] Chronic Other complications of (4 sources) Other viral diseases complicating , second trimester; Translations: [OTH VIRAL DZ COMP PREG SECOND TRI] Onset: 10-09-2021 Episodic Other nutritional; endocrine; and metabolic disorders (2 sources) Obese class I 03-25-2023 Chronic Other and delivery including normal (4 sources) Encounter for supervision of normal , unspecified, third trimester; Translations: [Encounter for supervision of normal , unspecified, unspecified trimester] Onset: 02-22-2022 Episodic Residual codes; unclassified (1 source) 20 weeks gestation of ; Translations: [20 WEEKS GESTATION OF ] Onset: 10-12-2021 Episodic Viral infection (1 source) COVID-19; Translations: [COVID-19] Onset: 10-12-2021 Past or Other Problems Problem Classification Problem Date Documented Da te Episodic/Chronic Deficiency and other anemia (2 sources) Anemia Onset: 11-22-2018 03-25-2023 Episodic Results Test Name Value Interpretation Reference Range Facility [facility] 03-29-2023 Lab Reports [id number] .00[address] [facility] Operative Reporton Operative Report [id number]. 00TIFF [facility] Lab Reportson 03-28-2023 Lab Reports [id number] .[address] [facility] Consultation Noteon 03-25-19 24 Consultation Note [id number] [facility] Consultation Note [id number] [address] [facility] Alanine aminotransferase [En zymatic activity/volume] in Serum or PlasmaOrdered By: Leda Natarajan on 03-23-2023 ALT [Catalytic activity/Vol] 18 U/L 7-52 [facility] Albumin [Mass/volume] in Ser um or Plasma by Bromocresol green (BCG) dye binding methoOrdered By: Leda Natarajan on 03-23-2023 Albumin BCG dye [Mass/Vol] 4.9 g/dL 3.5-5.7 [facility] Alkaline phosphatase [Enzyma tic activity/volume] in Serum or PlasmaOrdered By: Imad Asaad on 03-23-2023 ALP [Catalytic activity/Vol] 63 U/L 34-104 [facility] Aspartate aminotransferase [ Enzymatic activity/volume] in Serum or PlasmaOrdered By: Imad Asaad on 03-23-2023 AST [Catalytic activity/Vol] 17 U/L 13-39 [facility] Bilirubin.direct [Mass/volum e] in Serum or PlasmaOrdered By: Imad Asaad on 03-23-2023 Bilirubin.direct [Mass/Vol] 0.10 mg/dL 0.03-0.18 [facility] Bilirubin.total [Mass/volume ] in Serum or PlasmaOrdered By: Imad Asaad on 03-23-2023 Bilirubin [Mass/Vol] 0.6 mg/dL 0.3-1.0 [facility] Celiacon 03-23-2023 Deamidated Gliadin Abs, IgA 73 High 0-19 [facility] Comment on above: Result Comment: Nega tive 0 - 19 Weak Positive 20 - 30 Moderate to Strong Positive >30 Performed By: #### C ELIAC #### [facility] , #### LIPASE, HEPATIC #### [facility] [address] [place] [address] [place] Deamidated Gliadin Abs, IgG 45 High 0-[address] [place] [address] Comment on above: Result Comment: Nega tive 0 - 19 Weak Positive 20 - 30 Moderate to Strong Positive >30 Performed By: #### C ELIAC #### [facility] , #### LIPASE, HEPATIC #### [facility] [address] [place] [id number] [place] Endomysial Antibody IgA Negative Normal Negative [facility] Comment on above: Performed By: #### C ELIAC #### [facility] , #### LIPASE, HEPATIC #### [facility] [address] [place] [id number] [place] Immunoglobulin A, Qn, Serum 238 mg/dL Normal 87-352 [facility] Comment on above: Result Comment: Perf ormed at: - [facility] [address] [id number] Instrumentation Chemist: Philippe Trent PhD, Phone: [phone] PERFORMED BY: [place] [address] PATHOLOGIST STORY EDITOR LUNA ELIZALDE M.D. Performed By: #### C ELIAC #### [facility] , #### LIPASE, HEPATIC #### [address] T-Transglutaminase (tTG) IgA 32 High 0-3 [facility] Comment on above: Result Comment: Nega tive 0 - 3 Weak Positive 4 - 10 Positive >10 Tissue Transglutaminase (tTG) has been identified as the endomysial antigen. Studies have demonstr- ated that endomysial IgA antibodies have over 99% specificity for gluten sensitive enteropathy. Performed By: #### C ELIAC #### [facility] , #### LIPASE, HEPATIC #### [address] T-Transglutaminase (tTG) IgG 3 Normal 0-5 [facility] Comment on above: Result Comment: Nega tive 0 - 5 Weak Positive 6 - 9 Positive >9 Performed By: #### C ELIAC #### [facility] , #### LIPASE, HEPATIC #### [facility] [address] [place] [address] Globulin Calc (S) [Mass/Vol] Ordered By: Imad Asaad on 03-23-2023 Globulin (S) [Mass/Vol] 2.8 g/dL [facility] Hepatic Panelon 03-23-2023 Albumin [Mass/Vol] 4.9 g/dL Normal 3.5-5.7 [facility] Comment on above: Performed By: #### C ELIAC #### [facility] , #### LIPASE, HEPATIC #### [facility] [address] [place] [address] Albumin/Globulin [Mass ratio] 1.8 {ratio} Normal [facility] Comment on above: Performed By: #### C ELIAC #### [facility] , #### LIPASE, HEPATIC #### [facility] [address] ALP [Catalytic activity/Vol] 63 U/L Normal 34-104 [facility] Comment on above: Performed By: #### C ELIAC #### [facility] , #### LIPASE, HEPATIC #### [address] ALT [Catalytic activity/Vol] 18 U/L Normal 7-52 [facility] Comment on above: Performed By: #### C ELIAC #### [facility] , #### LIPASE, HEPATIC #### [address] AST [Catalytic activity/Vol] 17 U/L Normal 13-39 [facility] Comment on above: Performed By: #### C ELIAC #### [facility] , #### LIPASE, HEPATIC #### [facility] [address] [place] [address] Bilirubin [Mass/Vol] 0.6 mg/dL Normal 0.3-1.0 [facility] Comment on above: Performed By: #### C ELIAC #### [facility] , #### LIPASE, HEPATIC #### [facility] [address] [place] [address] [place] Bilirubin,Indirect 0.5 mg/dL Normal [facility] Comment on above: Performed By: #### C ELIAC #### [facility] , #### LIPASE, HEPATIC #### [facility] [address] [place] [address] [place] Bilirubin.indirect [Mass/Vol] 0.10 mg/dL Normal 0.03-0.18 [facility] Comment on above: Performed By: #### C ELIAC #### [facility] , #### LIPASE, HEPATIC #### [facility] [address] [place] [address] Globulin (S) [Mass/Vol] 2.8 g/dL Normal [facility] Comment on above: Performed By: #### C ELIAC #### [facility] , #### LIPASE, HEPATIC #### [facility] [address] [place] [address] Protein [Mass/Vol] 7.7 g/dL Normal 6.4-8.9 [facility] Comment on above: Performed By: #### C ELIAC #### [facility] , #### LIPASE, HEPATIC #### [address] Lipaseon 03-23-2023 Lipase [Catalytic activity/Vol] 14.0 U/L Normal 11.0-82.0 [facility] Comment on above: Result Comment: PERF ORMED BY: [place] [address] PATHOLOGIST STORY EDITOR LUNA ELIZALDE M.D. Performed By: #### C ELIAC #### [facility] , #### LIPASE, HEPATIC #### [address] Lipase [Enzymatic activity/v olume] in Serum or PlasmaOrdered By: Imad Asaad on 03-23-2023 Lipase [Catalytic activity/Vol] 14.0 U/L 11.0-82.0 [facility] Protein [Mass/volume] in Ser um or PlasmaOrdered By: Imad Asaad on 03-23-2023 Protein [Mass/Vol] 7.7 g/dL 6.4-8.9 [facility] Serum or plasma albumin/glob ulin mass ratioOrdered By: Imad Asaad on 03-23-2023 Albumin/Globulin [Mass ratio] 1.8 {ratio} [facility] Serum or plasma non-glucuron idated bilirubin measurement (mass/volume)Ordered By: Imad Asaad on 03-23-2023 Bilirubin.indirect [Mass/Vol] 0.5 mg/dL [facility] CBC with Diffon 02-23-2022 Abs. Basophil <0.03 Normal 0.00-0.20 [facility] Comment on above: Performed By: #### C DP #### [facility] [address] [place] [address] Instrumentation Chemist: Ender Lucas MD Abs.Imm.Granulocyte 0.04 k/uL Normal 0.00-0.30 [facility] Comment on above: Performed By: #### C DP #### [facility] [address] [place], [place] [id number] Instrumentation Chemist: Ender Lucas MD Abs.Neutrophil (Seg) 5.13 k/uL Normal 1.50-8.10 [facility] Comment on above: Performed By: #### C DP #### [facility] [address] [place], [place] [id number] Instrumentation Chemist: Ender Lucas MD Basophils/100 WBC (Bld) 0 % Normal 0-2 [facility] Comment on above: Performed By: #### C DP #### [facility] [address] [place], [place] [address] Instrumentation Chemist: Ender Lucas MD Eosinophils (Bld) [#/Vol] 0.06 10*3/uL Normal 0.00-0.44 [facility] Comment on above: Performed By: #### C DP #### [facility] [address] [place], [place] [id number] Instrumentation Chemist: Ender Lucas MD Eosinophils/100 WBC (Bld) 1 % Normal 1-4 [facility] Comment on above: Performed By: #### C DP #### [facility] [address] [place] [address] Instrumentation Chemist: Ender Lucas MD Erythrocyte distribution width (RBC) [Ratio] 13.4 % Normal 11.8-14.4 [facility] Comment on above: Performed By: #### C DP #### [facility] [address] [place] [address] Instrumentation Chemist: Ender Lucas MD Hematocrit (Bld) [Volume fraction] 36.6 % Normal 36.3-47.1 [facility] Comment on above: Performed By: #### C DP #### [facility] [address] [place], [facility] Instrumentation Chemist: Ender Lucas MD Hemoglobin (Bld) [Mass/Vol] 12.4 g/dL Normal 11.9-15.1 [facility] Comment on above: Performed By: #### C DP #### [address] [place], [facility]83 Instrumentation Chemist: Ender Lucas MD Immature granulocytes/100 WBC (Bld) 1 % High 0 [facility] Comment on above: Performed By: #### C DP #### [address] [place] [address] Instrumentation Chemist: Ender Lucas MD Lymphocytes (Bld) [#/Vol] 2.22 10*3/uL Normal 1.10-3.70 [facility] Comment on above: Performed By: #### C DP #### [facility] [address] [place] [address] Dr[place], [facility]83 Instrumentation Chemist: Ender Lucas MD Lymphocytes/100 WBC (Bld) 28 % Normal 24-43 [facility] Comment on above: Performed By: #### C DP #### [address] [place] [address] Instrumentation Chemist: Ender Lucas MD MCH (RBC) [Entitic mass] 30.2 pg Normal 25.2-33.5 [facility] Comment on above: Performed By: #### C DP #### [facility] [address] [place], [place] [address] Instrumentation Chemist: Ender Lucas MD MCHC (RBC) [Mass/Vol] 33.9 g/dL Normal 28.4-34.8 [facility] Comment on above: Performed By: #### C DP #### [facility] [address] [place], [place] [id number] Instrumentation Chemist: Ender Lucas MD MCV (RBC) [Entitic vol] 89.1 fL Normal 82.6-102.9 [facility] Comment on above: Performed By: #### C DP #### [address] [place], [place] [address] Instrumentation Chemist: Ender Lucas MD Monocytes (Bld) [#/Vol] 0.57 10*3/uL Normal 0.10-1.20 [facility] Comment on above: Performed By: #### C DP #### [facility] [address] [place], [place] [address]38783 Instrumentation Chemist: Ender Lucas MD Monocytes/100 WBC (Bld) 7 % Normal 3-12 [facility] Comment on above: Performed By: #### C DP #### [address] [place], [place] [address] Instrumentation Chemist: Ender Lucas MD Neutrophil (Seg) 63 % Normal 36-65 [facility] Comment on above: Performed By: #### C DP #### [facility] [address] [place], [place] [address] Instrumentation Chemist: Ender Lucas MD NRBC Automated 0.0 per 100 WBC Normal 0.0 [facility] Comment on above: Performed By: #### C DP #### [facility] [address] [place], [place] [address]134[address] Instrumentation Chemist: Ender Lucas MD Platelet mean volume (Bld) [Entitic vol] 11.3 fL Normal 8.1-13.5 [facility] Comment on above: Performed By: #### C DP #### [facility] [address] [place] [address] Instrumentation Chemist: Ender Lucas MD Platelets (Bld) [#/Vol] 196 10*3/uL Normal 138-453 [facility] Comment on above: Performed By: #### C DP #### [facility] [address] [place], [place] [address] Instrumentation Chemist: Ender Lucas MD RBC (Bld) [#/Vol] 4.11 10*6/uL Normal 3.95-5.11 [facility] Comment on above: Performed By: #### C DP #### [address] [place] [address] Instrumentation Chemist: Ender Lucas MD WBC (Bld) [#/Vol] 8.0 10*3/uL Normal 3.5-11.3 [facility] Comment on above: Performed By: #### C DP #### [address] [place] [address] Instrumentation Chemist: Ender Lucas MD Drug Scr, Abuse, Uron 2021 Amphetamine(s),Ur Negative Normal NEG [facility] Comment on above: Performed By: #### D AU #### [address] [place] [address] Instrumentation Chemist: Ender Lucas MD Barbiturate(s),Ur Negative Normal NEG [facility] Comment on above: Performed By: #### D AU #### [address] [place] [address] Instrumentation Chemist: Ender Lucas MD Benzodiazepine(s) Negative Normal NEG [facility] Comment on above: Performed By: #### D AU #### [address] [place], [place] [address] Instrumentation Chemist: Ender Lucas MD Buprenorphrine, Ur Negative Normal NEG [facility] Comment on above: Performed By: #### D AU #### [facility] [address] [place], [place] [address] Instrumentation Chemist: Ender Lucas MD Cannabinoid(s),Ur Negative Normal NEG [facility] Comment on above: Performed By: #### D AU #### [facility] [address] [place], [place] 6[address]83 Instrumentation Chemist: Ender Lucas MD Cocaine Metabolite Negative Normal [facility] Comment on above: Performed By: #### D AU #### [facility] [address] [place], [place] [address] Instrumentation Chemist: Ender Lucas MD Methadone Ql (U) Negative Normal [facility] Comment on above: Performed By: #### D AU #### [facility] [address] [place], [place] [address] Instrumentation Chemist: Ender Lucas MD Methamphetamine, Ur Negative Normal [facility] Comment on above: Performed By: #### D AU #### [facility] [address] [place] [address] Dr[place], [place] 506[address] Instrumentation Chemist: Ender Lucas MD Opiate(s), Ur Negative Normal [facility] Comment on above: Performed By: #### D AU #### [facility] [address] [place], [place] 5827483 Instrumentation Chemist: Ender Lucas MD Oxycodone, Urine Negative Normal [facility] Comment on above: Performed By: #### D AU #### [facility] [address] [place], [place] [address]167[address] Instrumentation Chemist: Ender Lucas MD Phencyclidine, Ur Negative Normal [facility] Comment on above: Performed By: #### D AU #### [facility] [address] [place] [address] [place] [address] Instrumentation Chemist: Ender Lucas MD Propoxyphene,Urine Negative Normal NEG [facility] Comment on above: Performed By: #### D AU #### [facility] [address] [place], [place] [id number] Instrumentation Chemist: Ender Lucas MD Tricyclic antidepressants Screen Ql (U) Negative Normal NEG [facility] Comment on above: Result Comment: Drug screen results are to be used for medical purposes only. All positive results are unconfirmed. Testing for employment or legal uses should be sent to a reference laboratory for confirmation. Performed By: #### D AU #### [address] [place], [place] 3997483 Instrumentation Chemist: Ender Lucas MD Type + Screenon 02-23-2022 Type + Screen Sample Expiration 02/25/2022,2359 Arm Band Number [id number] ABO/Rh(D) A POSITIVE Antibody Screen NEGATIVE [facility] Comment on above: Performed By: #### T YS #### [address] [place] [address] Instrumentation Chemist: Ender Lucas MD US OB Growthon 02-10-2022 [...] by Otoniel Tiwari on 02/10/2022 0941 Normal [facility] US OB Growthon 01-19-2022 US OB Growth [...] by Otoniel Tiwari on 01/20/2022 0923 Normal [facility] 12-17-2021 US OB Growth [...] by Otoniel Tiwari on 12/17/2021 1218 Normal [facility]ist Q - ABO GROUP AND RH TYPEon 07-16-2021 ABO group Nom (Bld) A Normal [facility] Comment on above: Order Comment: [facility] Testing performed at: Q[facility], [facility], [address] [place] [address], [address] [place] [address], [address] [place] [address], Wine Maker: Kel Alvarado MD [facility] Collection Date/Time: [facility] Results Received Date/Time: [facility] Reported Date/Time: Performed By: #### 6 399, %[place], [address], 2782A, 265F, 1149T, 33605S, 4439, 6304R, 36115, 430A, 50115G, 17736 #### [facility] Default [address] [place] [address] RH TYPE Positive Normal [facility] Comment on above: Order Comment: [facility] performed at: [facility], [facility], [address] [facility], [address] [place] [address], [address] [place] [address], Wine Maker: Kel Alvarado MD [facility] Date/Time: [facility] Results Received Date/Time: [facility] Reported Date/Time: Result Comment: For additional information, please refer to http://education.ISORG/faq/WUS150 (This link is being provided for informational/ educational purposes only.) Performed By: #### 6 399, %[place], [address], 2782A, 265F, 1149T, 81873E, 4439, 6304R, 88432, 430A, 98916W, 94600 #### [facility] [address] [place] [address] Q - ANTIBODY SCREEN,RBC W/RE FL ID,TITER AND AGon 07-16-2021 ANTIBODY SCREEN, RBC W/REFL ID, TITER AND AG Detected Normal [facility] Comment on above: Order Comment: [facility] performed at: [facility], [address] [facility], [address] [place] [address], [address] [place] [address], Wine Maker: Kel Alvarado MD [facility] Date/Time: [facility] Results Received Date/Time: [facility] Reported Date/Time: Result Comment: Refe rence range No antibodies detected This assay is a screening test for the detection of red blood cell antibodies. The test is not to be used for pretransfusion screening or for the medical management of an alloimmunized . Performed By: #### 6 399, %[place], [address], 2782A, 265F, 1149T, 90920H, 4439, 6304R, 45309, 430A, 07436U, 92151 #### [facility] Default [address] [place] [address] Q - CBC W/DIFF AND PLTon BASOABS 68 cells/uL Normal 0-200 [facility] Comment on above: Order Comment: [facility] performed at: [facility] [facility], [facility], [address] [facility], [address] [place] [address], [phone], Wine Maker: Kel Alvarado MD [facility] Date/Time: [facility] Results Received Date/Time: [facility] Reported Date/Time: Performed By: #### 6 399, %[place], [address], 2782A, 265F, 1149T, 27717B, 4439, 6304R, 67050, 430A, 22257U, 30112 #### [facility] Default [address] [place] [address] Basophils/100 WBC (Bld) 0.7 % Normal [facility] Comment on above: Order Comment: [facility] performed at: [employer] [facility], [facility], [address] , [address] [place] [address], [phone], Wine Maker: Kel Alvarado MD [facility] Date/Time: [facility] Results Received Date/Time: [facility] Reported Date/Time: Performed By: #### 6 399, %[place], [address], 2782A, 265F, 1149T, 46920A, 4439, 6304R, 73771, 430A, 58691C, 65346 #### [facility] Default [address] [place] [address] EOSABS 107 cells/uL Normal 15-500 [facility] Comment on above: Order Comment: [facility] performed at: [employer], [facility], [address], [address] [place] [address], [phone], Wine Maker: Kel Alvarado MD [facility] Date/Time: [facility] Results Received Date/Time: [facility] Reported Date/Time: Performed By: #### 6 399, %[place], [address], 2782A, 265F, 1149T, 90742H, 4439, 6304R, 14894, 430A, 10112C, 87073 #### [facility] Default [address] [place] [address] Eosinophils/100 WBC (Bld) 1.1 % Normal [facility] Comment on above: Order Comment: [facility] performed at: [employer], [facility], [address], [address] [place] [address], [phone], Wine Maker: Kel Alvarado MD [facility] Date/Time: [facility] Results Received Date/Time: [facility] Reported Date/Time: Performed By: #### 6 399, %[place], [address], 2782A, 265F, 1149T, 77263H, 4439, 6304R, 75148, 430A, 81700R, 11953 #### [facility] Default [address] [place], [place] [address] Erythrocyte distribution width (RBC) [Ratio] 14.0 % Normal 11.0-15.0 [facility] Comment on above: Order Comment: [facility] performed at: [facility] [facility], [facility], [address], [address] [place] [address], [address], Wine Maker: Kel Alvarado MD [facility] Collection Date/Time: [facility] Results Received Date/Time: [facility] Reported Date/Time: Performed By: #### 6 399, %[place], 55555, 2782A, 265F, 1149T, 55758K, 4439, 6304R, 25961, 430A, 77844G, 95671 #### [facility] [address] [place] [address] Hematocrit (Bld) [Volume fraction] 38.7 % Normal 35.0-45.0 [facility] Comment on above: Order Comment: [facility] performed at: [facility], [facility], [address] , [address] [place] [address], [address] [place] [address], Wine Maker: Kel Alvarado MD [facility] Date/Time: [facility] Results Received Date/Time: [facility] Reported Date/Time: Performed By: #### 6 399, %[place], 879[address], 2782A, 265F, 1149T, 98849P, 4439, 6304R, 14060, 430A, 18261W, 99179 #### [facility] [address] [place] [address] Hemoglobin (Bld) [Mass/Vol] 13.6 g/dL Normal 11.7-15.5 [facility] Comment on above: Order Comment: [facility] performed at: [facility], [facility], [address] , [address] [place] [address], [address] [place] [address], Wine Maker: Kel Alvarado MD [facility] Date/Time: [facility] Results Received Date/Time: [facility] Reported Date/Time: Performed By: #### 6 399, %[place], 55354, 2782A, 265F, 1149T, 25997E, 4439, 6304R, 18039, 430A, 80010C, 55716 #### [facility] [address] [place] [address] Lymphocytes (Bld) [#/Vol] 2.512 10*3/uL Normal 850-3900 [facility] Comment on above: Order Comment: [facility] performed at: [facility], [facility], [address] , [address] [place] [address], [address] [place] [address], Wine Maker: Kel Alvarado MD [facility] Date/Time: [facility] Results Received Date/Time: [facility] Reported Date/Time: Performed By: #### 6 399, %[place], 12620, 2782A, 265F, 1149T, 64346R, 4439, 6304R, 63297, 430A, 09037G, 58662 #### [facility] [address] [place] [address] Lymphocytes/100 WBC (Bld) 25.9 % Normal [facility] Specialist Comment on above: Order Comment: [facility] performed at: [employer], [facility], [address] [place] [address], [address] [place] [address], [address] [place] [address], Wine Maker: Kel Alvarado MD [facility] Date/Time: [facility] Results Received Date/Time: [facility] Reported Date/Time: Performed By: #### 6 399, %[place], 45481, 2782A, 265F, 1149T, 72254I, 4439, 6304R, 98976, 430A, 95880D, 59571 #### [facility] [address] [place] [address] MCH (RBC) [Entitic mass] 29.2 pg Normal 27.0-33.0 [facility] Comment on above: Order Comment: [facility] performed at: [employer], [facility], [address] [place] [address], [address] [place] [address], [address], Wine Maker: Kel Alvarado MD [facility] Date/Time: [facility] Results Received Date/Time: [facility] Reported Date/Time: Performed By: #### 6 399, %[place], 62907, 2782A, 265F, 1149T, 45536J, 4439, 6304R, 30181, 430A, 71721B, 17804 #### [facility] [address] [place] [address] MCHC (RBC) [Mass/Vol] 35.1 g/dL Normal 32.0-36.[address] [facility] Comment on above: Order Comment: [facility] performed at: [employer], [facility], [address] [facility], [address] [place] [address], [address] [place] [address], Wine Maker: Kel Alvarado MD [facility] Collection Date/Time: [facility] Results Received Date/Time: [facility] Reported Date/Time: Performed By: #### 6 399, %[place], 72231, 2782A, 265F, 1149T, 34133V, 4439, 6304R, 27453, 430A, 73606N, 33786 #### [facility] [address] [place] [address] MCV (RBC) [Entitic vol] 83.0 fL Normal 80.0-100.0 [facility] Comment on above: Order Comment: [facility] performed at: [employer], [facility], [address], [address] [place] [address], [address] [place] [address], Wine Maker: Kel Alvarado MD [facility] Date/Time: [facility] Results Received Date/Time: [facility] Reported Date/Time: Performed By: #### 6 399, %[place], 27529, 2782A, 265F, 1149T, 65843J, 4439, 6304R, 30788, 430A, 60759M, 17300 #### [facility] [address] [place] [address] MONOABS 747 cells/uL Normal 200-950 [facility] Comment on above: Order Comment: [facility] performed at: [facility], [address] [facility], [address] [place] [address], [address] [place] [address], Wine Maker: Kel Alvarado MD [facility] Collection Date/Time: [facility] Results Received Date/Time: [facility] Reported Date/Time: Performed By: #### 6 399, %[place], 24121, 2782A, 265F, 1149T, 33163W, 4439, 6304R, 62329, 430A, 57013I, 95958 #### [facility] [address] [place] [address] Monocytes/100 WBC (Bld) 7.7 % Normal [facility] Comment on above: Order Comment: [facility] performed at: [employer], [facility], [address] , [address] [place] [address], [address] [place] [address], Wine Maker: Kel Alvarado MD [facility] Collection Date/Time: [facility] Results Received Date/Time: [facility] Reported Date/Time: Performed By: #### 6 399, %[place], 16609, 2782A, 265F, 1149T, 65194N, 4439, 6304R, 96420, 430A, 87686A, 39144 #### [facility] [address] [place] [address] Neutrophils (Bld) [#/Vol] 6.266 10*3/uL Normal 0979-8932 [facility] Comment on above: Order Comment: [facility] performed at: [employer], [facility], [address] , [address] [place] [address], [address] [place] [address], Wine Maker: Kel Alvarado MD [facility] Collection Date/Time: [facility] Results Received Date/Time: [facility] Reported Date/Time: Performed By: #### 6 399, %[place], 85529, 2782A, 265F, 1149T, 49367O, 4439, 6304R, 33272, 430A, 47279A, 00199 #### [facility] [address] [place] [address] Neutrophils/100 WBC (Bld) 64.6 % Normal [facility] Comment on above: Order Comment: [facility] performed at: [employer], [facility], [address] , [address] [place] [address], [address] [place] [address], Wine Maker: Kel Alvarado MD [facility] Collection Date/Time: [facility] Results Received Date/Time: [facility] Reported Date/Time: Performed By: #### 6 399, %[place], 69851, 2782A, 265F, 1149T, 96326P, 4439, 6304R, 45140, 430A, 54545V, 69321 #### [facility] [address] [place] [address] Platelet mean volume (Bld) [Entitic vol] 11.1 fL Normal 7.5-12.5 [facility]ist Comment on above: Order Comment: [facility] performed at: [employer], [facility], [address] [place] [address], [address] [place] [address], [address], Wine Maker: Kel Alvarado MD [facility] Collection Date/Time: [facility] Results Received Date/Time: [facility] Reported Date/Time: Performed By: #### 6 399, %[place], 75908, 2782A, 265F, 1149T, 01405Y, 4439, 6304R, 12929, 430A, 51144L, 22819 #### [facility] [address] [place] [address] Platelets (Bld) [#/Vol] 245 10*3/uL Normal 140-400 [facility] Comment on above: Order Comment: [facility] performed at: [employer], [facility], [address] , [address] [place] [address], [place], [address], Wine Maker: Kel Alvarado MD [facility] Collection Date/Time: [facility] Results Received Date/Time: [facility] Reported Date/Time: Performed By: #### 6 399, %[place], 74810, 2782A, 265F, 1149T, 99323G, 4439, 6304R, 12507, 430A, 56836H, 24906 #### [facility] [address] [place] [address] RBC (Bld) [#/Vol] 4.66 10*6/uL Normal 3.80-5.10 [facility] [place] [facility] Comment on above: Order Comment: [facility] performed at: [employer], [facility], [address], [address] [place] [address], [place], [address], Wine Maker: Kel Alvarado MD [facility] Collection Date/Time: [facility] Results Received Date/Time: [facility] Reported Date/Time: Performed By: #### 6 399, %[place], 91441, 2782A, 265F, 1149T, 59789E, 4439, 6304R, 89484, 430A, 47404T, 11779 #### [facility] [address] [place] [address] WBC (Bld) [#/Vol] 9.7 10*3/uL Normal 3.8-10.8 [facility] Comment on above: Order Comment: [facility] Testing performed at: [employer], [facility], [address], [address] [place] [address], [place], [address], Wine Maker: Kel Alvarado MD [facility] Collection Date/Time: [facility] Results Received Date/Time: [facility] Reported Date/Time: Performed By: #### 6 399, %[place], 07211, 2782A, 265F, 1149T, 47518V, 4439, 6304R, 66362, 430A, 45281V, 83367 #### [facility] [address] [place] [address] Q - CHLAMYDIA TRACHOMATIS/NE ISSERIA GONORRHOEAE RNA TMAon 07-16-2021 CHLAMYDIA TRACHOMATIS RNA, TMA, UROGENITAL Not detected Normal NOT DETECTED [facility] Comment on above: Order Comment: [facility] performed at: [employer], [facility], [address] , [address] [place] [address], [place], [address], Wine Maker: Kel Alvarado MD [facility] Collection Date/Time: [facility] Results Received Date/Time: [facility] Reported Date/Time: Performed By: #### 6 399, %[place], 83623, 2782A, 265F, 1149T, 79822L, 4439, 6304R, 32831, 430A, 07216H, 58480 #### [facility] Default [address] [place] [address] COMMENT SEE NOTE Normal [facility] Comment on above: Order Comment: [facility] Testing performed at: Q, [facility], [address] [facility], [address] [place], [address], Wine Maker: Kel Alvarado MD [facility] Collection Date/Time: [facility] Results Received Date/Time: [facility] Reported Date/Time: Result Comment: The analytical performance characteristics of this assay, when used to test SurePath(TM) specimens have been determined by [facility]. The modifications have not been cleared or approved by the FDA. This assay has been validated pursuant to the CLIA regulations and is used for clinical purposes. For additional information, please refer to https://education.Vehrity/faq/HRX753 (This link is being provided for information/ educational purposes only.) Performed By: #### 6 399, %[place], 34270, 2782A, 265F, 1149T, 75217R, 4439, 6304R, 12133, 430A, 75372L, 85700 #### [facility] Default [address] [place] [address] Result Comment: See Note 1 Note 1 This drug testing is for medical treatment only. Analysis was performed as non-forensic testing and these results should be used only by healthcare providers to render diagnosis or treatment, or to monitor progress of medical conditions. For assistance with interpreting these drug results, please contact a [facility]ist: [phone] ( [phone] M-F, 8am-6pm EST. NEISSERIA GONORRHOEAE RNA, TMA, UROGENITAL Not detected Normal NOT DETECTED [facility] Comment on above: Order Comment: [facility] performed at: [employer], [facility], [address] , [address] [place] [address], [address] [place] [address], Wine Maker: Kel Alvarado MD [facility] Collection Date/Time: [facility] Results Received Date/Time: [facility] Reported Date/Time: Performed By: #### 6 399, %[place], 63943, 2782A, 265F, 1149T, 54405K, 4439, 6304R, 95405, 430A, 41284U, 28915 #### [facility] [address] [place] [address] Q - CULTURE,URINE,ROUTINEon 07-16-2021 CULTURE, URINE, ROUTINE SEE NOTE Normal [facility] Comment on above: Order Comment: [facility] performed at: [employer], [facility], [address], [address] [place] [address], [address] [place] [address], Wine Maker: Kel Alvarado MD [facility] Collection Date/Time: [facility] Results Received Date/Time: [facility] Reported Date/Time: Result Comment: CULT URE, URINE, ROUTINE Micro Number: [id number] Test Status: Final Specimen Source: Urine Specimen Quality: Adequate Result: No Growth Performed By: #### 6 399, %[place], 63629, 2782A, 265F, 1149T, 11502D, 4439, 6304R, 44732, 430A, 33822H, 03182 #### [facility] [address] [place] [address] Q - DRUG TOX MONITORING CONFIRMATION,URINEon 07-16-2021 Amphetamines Negative Normal <500 [facility] Comment on above: Order Comment: [facility] performed at: [facility], [address], [address] [place] [address], [address] [place] [address], Wine Maker: Kel Alvarado MD [facility] Collection Date/Time: [id number] [facility] Results Received Date/Time: [id number] [facility] Reported Date/Time: Performed By: #### 6 399, %[place], 09367, 2782A, 265F, 1149T, 23970T, 4439, 6304R, 47809, 430A, 36391K, 56996 #### [facility] Default [address] [place] [address] Barbiturates Negative Normal <300 [facility] Comment on above: Order Comment: [facility] performed at: [facility], [address] , [address] [place] [address], [address] [place] [address], Wine Maker: Kel Alvarado MD [facility] Collection Date/Time: [facility] Results Received Date/Time: [facility] Reported Date/Time: Performed By: #### 6 399, %[place], 30418, 2782A, 265F, 1149T, 28601R, 4439, 6304R, 02279, 430A, 70342S, 61990 #### [facility] Default [address] [place] [address] Benzodiazepines Negative Normal <100 [facility] Specialist Comment on above: Order Comment: [facility] performed at: [facility], [address] , [address] [place] [address], [address] [place] [address], Wine Maker: Kel Alvarado MD [facility] Collection Date/Time: [facility] Results Received Date/Time: [facility] Reported Date/Time: Performed By: #### 6 399, %[place], 19593, 2782A, 265F, 1149T, 07870B, 4439, 6304R, 01066, 430A, 98095U, 01057 #### [facility] Default [address] [place] [address] Cocaine Metabolite Negative Normal <150 [facility] Specialist Comment on above: Order Comment: [facility] performed at: [facility], [address] , [address] [place] [address], [address], Wine Maker: Kel Alvarado MD [facility] Collection Date/Time: [facility] Results Received Date/Time: [facility] Reported Date/Time: Performed By: #### 6 399, %[place], 45167, 2782A, 265F, 1149T, 39527A, 4439, 6304R, 46144, 430A, 19132I, 35870 #### [facility] Default [address] [place] [address] Marijuana Metabolite 20 Negative Normal <20 [facility] Specialist Comment on above: Order Comment: [facility] performed at: [employer], [facility], [address] [facility], [address] [place] [address], [address], Wine Maker: Kel Alvarado MD [facility] Collection Date/Time: [facility] Results Received Date/Time: [facility] Reported Date/Time: Performed By: #### 6 399, %[place], 10088, 2782A, 265F, 1149T, 63017M, 4439, 6304R, 98040, 430A, 53373U, 69936 #### [facility] Default [address] [place] [address] Methadone Metabolite Negative Normal <100 [facility] Comment on above: Order Comment: [facility] performed at: [facility], [address] [facility], [address] [place] [address], [address], Wine Maker: Kel Alvarado MD [facility] Collection Date/Time: [facility] Results Received Date/Time: [facility] Reported Date/Time: Performed By: #### 6 399, %[place], 49419, 2782A, 265F, 1149T, 08913X, 4439, 6304R, 99762, 430A, 15887L, 85670 #### [facility] Default [address] [place] [address] Opiates Negative Normal <100 [facility] Specialist Comment on above: Order Comment: [facility] performed at: [facility], [address] , [address] [place] [address], [address] [place] [address], Wine Maker: Kel Alvarado MD [facility] Collection Date/Time: [facility] Results Received Date/Time: [facility] Reported Date/Time: Performed By: #### 6 399, %[place], 68362, 2782A, 265F, 1149T, 69001K, 4439, 6304R, 59159, 430A, 26172G, 58170 #### [facility] [address] [place] [address] Oxycodone Negative Normal <100 [facility] Comment on above: Order Comment: [facility] performed at: [employer], [facility], [address] , [address] [place] [address], [address] [place] [address], Wine Maker: Kel Alvarado MD [facility] Collection Date/Time: [facility] Results Received Date/Time: [facility] Reported Date/Time: Performed By: #### 6 399, %[place], 33081, 2782A, 265F, 1149T, 85578L, 4439, 6304R, 60128, 430A, 99720C, 89979 #### [facility] Default [address] [place] [address] Phencyclidine Negative Normal <25 [facility] Comment on above: Order Comment: [facility] performed at: [facility], [address] , [address] [place] [address], [address] [place] [address], Wine Maker: Kel Alvarado MD [facility] Collection Date/Time: [facility] Results Received Date/Time: [facility] Reported Date/Time: Performed By: #### 6 399, %[place], 05515, 2782A, 265F, 1149T, 43774E, 4439, 6304R, 12051, 430A, 84719W, 01139 #### [facility] Default [address] [place] [address] Q - HEPATITIS B SURFACE ANTI GEN W/ REFLEXon 07-16-2021 HEPATITIS B SURFACE ANTIGEN Non-Reactive Normal NON-REACTIVE [facility] Comment on above: Order Comment: [facility] performed at: [employer], [facility], [address], [address] [place], [address], Wine Maker: Kel Alvarado MD [facility] Collection Date/Time: [facility] Results Received Date/Time: [facility] Reported Date/Time: Performed By: #### 6 399, %[place], 25526, 2782A, 265F, 1149T, 65124P, 4439, 6304R, 68551, 430A, 97823B, 08474 #### [facility] Default [address] [place] [address] Q - HIV 1/2 ANTIGEN/ANTIBODY ,FOURTH GENERATION W/RFLon 07-16-2021 HIV AG/AB, 4TH GEN Non-Reactive Normal NON-REACTIVE [facility] above: Order Comment: [facility] performed at: [employer], [facility], [address], [address] [place] [address], [address] [place] [address], Wine Maker: Kel Alvarado MD [facility] Collection Date/Time: Quest [...] purpose. For additional information please refer to http://education.Vehrity/faq/DYR865 (This link is being provided for informational/ educational purposes only.) The performance of this assay has not been clinically validated in patients less than 2 years old. Performed By: #### 6 399, %[place], 54787, 2782A, 265F, 1149T, 12190H, 4439, 6304R, 14930, 430A, 25447C, 71440 #### [facility] Default [address] [place] [address] Q - RPR (MONITOR) W/RFX TITE Moreno 07-16-2021 RPR (MONITOR) W/REFL TITER Non-Reactive Normal NON-REACTIVE [facility] Comment on above: Order Comment: [facility] performed at: [employer], [facility], [address] , [address] [place] [address], [address], Wine Maker: Kel Alvarado MD [facility] Date/Time: [facility] Results Received Date/Time: [facility] Reported Date/Time: Performed By: #### 6 399, %[place], 07539, 2782A, 265F, 1149T, 60783G, 4439, 6304R, 58845, 430A, 58915B, 10404 #### [facility] Default [address] [place] [address] Q - UR CULT [id number] 2021 NOTE SEE NOTE Normal [facility] Comment on above: Order Comment: [facility] performed at: [employer], [facility], [address], [address] [place] [address], [address], Wine Maker: Kel Alvarado MD [facility] Date/Time: [facility] Results Received Date/Time: [facility] Reported Date/Time: Result Comment: This urine was analyzed for the presence of WBC, RBC, bacteria, casts, and other formed elements. Only those elements seen were reported. Performed By: #### 6 399, %[place], 05572, 2782A, 265F, 1149T, 23283V, 4439, 6304R, 02523, 430A, 38176U, 78422 #### [facility] Default [address] [place] [address] Q - URINALYSIS WITH REFLEX T O MICROSCOPICon 07-16-2021 Appearance (U) CLEAR Normal CLEAR [facility] Comment on above: Order Comment: [facility] performed at: [employer], [facility], [address] , [address] [place] [address], [address] [place] [address], Wine Maker: Kel Alvarado MD [facility] Date/Time: [facility] Results Received Date/Time: [facility] Reported Date/Time: Performed By: #### 6 399, %[place], 54583, 2782A, 265F, 1149T, 48722A, 4439, 6304R, 21540, 430A, 35385B, 46192 #### [facility] Default [address] [place] [address] BACTERIA FEW Abnormal NONE SEEN [facility] Comment on above: Order Comment: [facility] performed at: [employer], [facility], [address] [facility], [address] [place] [address], [address] [place] [address], Wine Maker: Kel Alvarado MD [facility] Date/Time: [facility] Results Received Date/Time: [facility] Reported Date/Time: Performed By: #### 6 399, %[place], 04909, 2782A, 265F, 1149T, 38953X, 4439, 6304R, 70535, 430A, 54651U, 34936 #### [facility] Default [address] [place] [address] Bilirubin Ql (U) Negative Normal NEGATIVE [facility] Comment on above: Order Comment: [facility] performed at: [employer], [facility], [address] , [address] [place] [address], [address] [place] [address], Wine Maker: Kel Alvarado MD [facility] Date/Time: [facility] Results Received Date/Time: [facility] Reported Date/Time: Performed By: #### 6 399, %[place], 64271, 2782A, 265F, 1149T, 17697Y, 4439, 6304R, 70388, 430A, 94640O, 59188 #### [facility] Default [address] [place] [address] Color (U) YELLOW Normal YELLOW [facility] Comment on above: Order Comment: [facility] performed at: [employer], [facility], [address], [address] [place] [address], [address] [place] [address], Wine Maker: Kel Alvarado MD [facility] Date/Time: [facility] Results Received Date/Time: [facility] Reported Date/Time: Performed By: #### 6 399, %[place], 77018, 2782A, 265F, 1149T, 85286V, 4439, 6304R, 07810, 430A, 26225W, 55868 #### [facility] Default [address] [place] [address] Glucose Ql (U) Negative Normal NEGATIVE [facility] Comment on above: Order Comment: [facility] performed at: [employer], [facility], [address] , [address] [place] [address], [address] [place] [address], Wine Maker: Kel Alvarado MD [facility] Date/Time: [facility] Results Received Date/Time: [facility] Reported Date/Time: Performed By: #### 6 399, %[place], 28023, 2782A, 265F, 1149T, 17568C, 4439, 6304R, 59130, 430A, 19021J, [id number] #### [facility] Default [address] [place] [address] HYALINE CAST NONE SEEN Normal NONE SEEN [facility] [facility] Comment on above: Order Comment: [facility] Testing performed at: [employer], [facility], [address], [address] [place] [address], [address] [place] [address], Wine Maker: Kel Alvarado MD [facility] Collection Date/Time: [facility] Results Received Date/Time: [facility] Reported Date/Time: Performed By: #### 6 399, %[place], 65957, 2782A, 265F, 1149T, 21924T, 4439, 6304R, 71435, 430A, 77579G, 03029 #### [facility] Default [address] [place] [address] Ketones Ql (U) Negative Normal NEGATIVE [facility] Comment on above: Order Comment: [facility] performed at: [employer], [facility], [address] [facility], [address] [place] [address], [phone], Wine Maker: Kel Alvarado MD [facility] Date/Time: [facility] Results Received Date/Time: [facility] Reported Date/Time: Performed By: #### 6 399, %[place], 83357, 2782A, 265F, 1149T, 28677X, 4439, 6304R, 87991, 430A, 06988Q, 67248 #### [facility] Default [address] [place] [address] Leukocyte esterase Test strip Ql (U) 2+ Abnormal NEGATIVE [facility] [employer] Comment on above: Order Comment: [facility] performed at: [employer], [facility], [address] [facility], [address] [place] [address], [place], [address], Wine Maker: Kel Alvarado MD [facility] Collection Date/Time: [facility] Results Received Date/Time: [facility] Reported Date/Time: Performed By: #### 6 399, %[place], 51497, 2782A, 265F, 1149T, 86087F, 4439, 6304R, 95870, 430A, 16998B, 03740 #### [facility] Default [address] [place] [address] Nitrite Ql (U) Negative Normal NEGATIVE [facility] Comment on above: Order Comment: [facility] performed at: [employer], [facility], [address] [facility], [address] [place] [address], [address], Wine Maker: Kel Alvarado MD [facility] Date/Time: [facility] Results Received Date/Time: [facility] Reported Date/Time: Performed By: #### 6 399, %[place], 034[address], 2782A, 265F, 1149T, 14044G, 4439, 6304R, 53380, 430A, 18660O, 31237 #### [facility] Default [address] [place] [address] OCCULT BLOOD Negative Normal NEGATIVE [facility] [employer] Comment on above: Order Comment: [facility] performed at: [employer], [facility], [address] [place] [address], [address] [place] [address], [phone], Wine Maker: Kel Alvarado MD [facility] Collection Date/Time: [facility] Results Received Date/Time: [facility] Reported Date/Time: Performed By: #### 6 399, %[place], 31258, 2782A, 265F, 1149T, 85283K, 4439, 6304R, 07603, 430A, 29633S, 94803 #### [facility] Default [address] [place] [address] pH (U) 7.0 [pH] Normal 5.0-8.0 [facility] [employer] Comment on above: Order Comment: [facility] performed at: [employer], [facility], [address] [facility], [address] [place] [address], [address], Wine Maker: Kel Alvarado MD [facility] Collection Date/Time: [facility] Results Received Date/Time: [facility] Reported Date/Time: Performed By: #### 6 399, %[place], [address], 2782A, 265F, 1149T, 22641G, 4439, 6304R, 78359, 430A, 31265G, 73128 #### [facility] Default [address] [place] [address] Protein Ql (U) Negative Normal NEGATIVE [facility] Comment on above: Order Comment: [facility] performed at: [employer], [facility], [address] , [address] [place] [address], [address] [place] [address], Wine Maker: Kel Alvarado MD [facility] Collection Date/Time: [facility] Results Received Date/Time: [facility] Reported Date/Time: Performed By: #### 6 399, %[place], 216[address], 2782A, 265F, 1149T, 61487M, 4439, 6304R, 87737, 430A, 98469F, 88190 #### [facility] Default [address] [place] [address] RBC NONE SEEN Normal < OR = 2 [facility] [employer] Comment on above: Order Comment: [facility] performed at: [employer], [facility], [address] , [address] [place] [address], [phone], Wine Maker: Kel Alvarado MD [facility] Collection Date/Time: [facility] Results Received Date/Time: [facility] Reported Date/Time: Performed By: #### 6 399, %[place], 574[address], 2782A, 265F, 1149T, 19842V, 4439, 6304R, 92777, 430A, 45459E, 30558 #### [facility] Default [address] [place] [address] Specific gravity (U) [Rel density] 1.007 Normal 1.001-1.035 [facility] [employer] Comment on above: Order Comment: [facility] performed at: [facility], [facility], [address] , [address] [place] [address], [address] [place] [address], Wine Maker: Kel Alvarado MD [facility] Collection Date/Time: [facility] Results Received Date/Time: [facility] Reported Date/Time: Performed By: #### 6 399, %[place], 28821, 2782A, 265F, 1149T, 65434N, 4439, 6304R, 86022, 430A, 00510I, 75204 #### [facility] Default [address] [place] [address] SQUAMOUS EPITHELIAL CELLS 0-5 Normal < OR = 5 [facility] [employer] Comment on above: Order Comment: [facility] performed at: [employer], [facility], [address] , [address] [place] [address], [phone], Wine Maker: Kel Alvarado MD [facility] Date/Time: [facility] Results Received Date/Time: [facility] Reported Date/Time: Performed By: #### 6 399, %[place], [address], 2782A, 265F, 1149T, 70180J, 4439, 6304R, 75811, 430A, 76480F, 05434 #### [facility] Default [address] [place] [address] WBC NONE SEEN Normal < OR = 5 [facility] [employer] Comment on above: Order Comment: [facility] performed at: [employer], [facility], [address] , [address] [place] [address], [address], Wine Maker: Kel Alvarado MD [facility] Date/Time: [facility] Results Received Date/Time: [facility] Reported Date/Time: Performed By: #### 6 399, %[place], [address], 2782A, 265F, 1149T, 55547P, 4439, 6304R, 98621, 430A, 16229T, 31556 #### [facility] Default [address] [place] [address] Q - VARICELLA-ZOSTER AB (IGG )on 07-16-2021 VARICELLA ZOSTER VIRUS ANTIBODY (IGG) 170.80 index Normal [facility] [employer] Comment on above: Order Comment: [facility] performed at: [employer], [facility], [address] , [address] [place] [address], [address], Wine Maker: Kel Alvarado MD [facility] Date/Time: [id number] [facility] Results Received Date/Time: [id number] [facility] Reported Date/Time: [id number] Result Comment: Inde x Interpretation --------- <135.00 [...] ACIF. Performed By: #### 6 399, %[place], 611[address], 2782A, 265F, 1149T, 69585N, 4439, 6304R, 55787, 430A, 40549T, 12888 #### [facility] Default [address] [place] [address] US OB 1ST Trimesteron 2021 US OB [...] by Otoniel Tiwari on 07/16/2021 1215 Normal [facility] Vital Signs Date Time Vital Sign Value Performing Clinician Leela paez 03-23-2023 13:00-0500 Body height 149.86 cm Imad [employer] Other [place] [employer] Other 03-23-2023 13:00-0500 Body mass index (BMI) [Ratio] 30.7 kg/m2 Imad Asaad Other [employer] Other 03-23-2023 13:00-0500 Body weight 68.95 kg Imad Asaad Other [employer] Other 03-23-2023 13:00-0500 Diastolic blood pressure 75 mm[Hg] Imad Asaad Other [employer] Other 03-23-2023 13:00-0500 Systolic blood pressure 124 mm[Hg] Imad Asaad Other [employer] Other Encounters Encounter Date Encounter Type Care Provider Facility Start: 04-06-2023 End: 04-06-2023 Patient encounter procedure Amilcar MORENO [facility] Start: 03-30-2023 ambulatory Amilcar MORENO Facility :[facility] Start: 03-30-2023 End: 03-30-2023 Patient encounter procedure Amilcar R NILL [facility] Start: 03-25-2023 ambulatory Amilcar MORENO Facility:[facility] Start: 03-23-2023 End: 03-23-2023 ambulatory Imad Asaad Facility:[facility] Start: 03-23-2023 Office outpatient ne w 45 minutes Imad Asaad [facility] Start: 03-23-2023 End: 03-23-2023 ambulatory PHYSICIAN JUANA [facility] [employer] Other Start: 03-23-2023 End: 03-23-2023 Patient encounter procedure PHYSICIAN JUANA [facility] [place] Work Phone: Start: 02-22-2022 End: 02-25-2022 Evaluation and management of inpatient TONI SCHAEFER [facility] Start: 10-09-2021 End: 10-09-[address] DOCTOR RAMIREZ Facility:[facility] Procedures Date Procedure Procedure Detail Performing Clinician Start: 03-24-2023 Cholecystectomy Amilcar MORENO Start: 07-16-2021 Antibody rubella Comment on above: Order Comment: [facility] performed at: [employer], [facility], [address] [facility], [address] [place], [address], Wine Maker: Kel Alvarado MD [facility] Collection Date/Time: [id number] [facility] Results Received Date/Time: [facility] Reported Date/Time: [id number] Result Comment: Inde x Interpretation ----- <0.90 Not consistent with immunity 0.90-0.99 Equivocal > or = 1.00 Consistent with immunity The presence of rubella IgG antibody suggests immunization or past or current infection with rubella virus. Performed By: #### 6 399, %[place], 44489, 2782A, 265F, 1149T, 90975Q, 4439, 6304R, 49143, 430A, 50875L, 40837 #### [facility] Default [address] [place] [address] Plan of Treatment Date Care Activity Detail Author Start: 03-23-2023 [facility] Endomysial antibody IgA level [facility] Gliadin peptide IgA Ab [Units/volume] in Serum [facility] Gliadin peptide IgG Ab [Units/volume] in Serum [facility] IgA [Mass/volume] in Serum or Plasma [facility] Tissue transglutamin ase IgA Ab [Units/volume] in Serum [facility] Tissue transglutamin ase IgG Ab [Units/volume] in Serum [facility] Immunizations Immunization Date Immunization Notes Care Provider Fa cility NEGATED: Highlighted row has not occurred!03-30-2023 influenza virus vaccine, unspecified formulation Amilcar MORENO [facility] [place] Payers Date Payer Category Payer Self-pay 1998 Unknown [id number] 1998 Unknown [id number] [id number] 1998 Unknown [id number] 1959 Private Health Insurance [id number] 1959 Unknown [id number] Unknown [id number] [id number] [id number] Social History Date Type Detail Facility Tobacco smoking stat [facility] Unknown if ever smoked [employer] Other Start: 2000 Sex Assigned At Female F [facility] Sex Assigned At [facility] Start: 03-30-2023 Tobacco smoking status Never s moked tobacco (finding) [facility] Tobacco smoking status Never Gener [facility] Functional Status Date Assessment Result Facility 03-30-2023 Functional Status N/A [facility] Discharge instructions 03-30-2023 Note Date & Type Note Facility 03-30-2023 Hospital Discharg e instructions Follow Up Care 03/30/2023 14:57:01 With:JOSH DE LUNA, BARRIE Gotti Address: [address] [place] [address]- When: only if needed [facility] Evaluation note 03-23-2023 Note Date & Type Note Facility 03-23-2023 Evaluation note Encounter Date Diagnosis Assessment Notes Mar, GERD (gastroesopha geal reflux disease) (ICD-10 - K21.9) Mar, Abdominal pain (ICD-10 - R10.9) [employer] Other Clinical Note 10-16-2021 Note Date & [...] Transverse lie Placenta Anterior Weight (g) by Zaogtsjerj72.0 % * These measurements result in an [...] signed by Otoniel Tiwari on 10/16/2021 1530 [facility] [facility] Evaluation + Plan note Note Date & Type Note Facility Evaluation + Plan note Future Appointments Appointment Date:04/06/2023 02:00:00 PM Scheduled Provider:Amilcar MORENO MD Location:[facility] Appointment Type: Post Op 15 [facility] Evaluation note Note Date & Type Note Facility Evaluation note No assessment information availa [facility] Work Phone: Hospital course Narrative Note Date & Type Note Facility Hospital course Narrative No data available for this section [facility] Discharge instructions Note Date & Type Note Facility Hospital Discharge instructions No data available for this section [facility] Progress note Note Date & Type Note Facility Progress note No data available for this section [facility] Summary Purpose Family History No Family History Records FoundNo Family History Records FoundNo Family History Records FoundNo Family History Records FoundNo Family History Records Found No data available for this section No data available for this section Advance Directives Advance Directive Response Recorded Date/ Time Advance Directives No March 23, 2023 2:01pm Chief Complaint and Reason for Visit Chief Complaint r10.9 Additional Source Comments INFORMATION SOURCE (unrecogn ized section and content) DATE CREATED AUTHOR 10/12/2021 [facility] DATE CREATED AUTHOR AUTHOR'S ORGANIZ ATION 02/10/2022 [facility] dical Specialist DATE CREATED AUTHOR AUTHOR'S ORGANIZ ATION 02/25/2022 [facility] DATE CREATED AUTHOR AUTHOR'S ORGANIZ ATION 03/26/2023 [facility] DATE CREATED AUTHOR AUTHOR'S ORGANIZ ATION 03/29/2023 [facility] Care Teams (unrecognized sec tion and content) Team Status: Active Member Role Status Dates PHYSICIAN NO FAMILY Primary Care Provider Active Team Status: Inactive Member Role Status Dates PHYSICIAN NO FAMILY Primary Care Provider Active Imulices Natarajan MD Attending Provider Active Goals (unrecognized section and content) Goals may be documented in a n alternate sectionNo Information No data available for this section No data available for this section REASON FOR VISIT (unrecogniz ed section and [...] BE BASED ON THE PRIMARY CLINICAL RECORDS. [employer] [facility]. provides no warranty or guarantee of the accuracy or completeness of information in this document.
--- NOTE | 2023-05-04 13:11 | ED_ITS ---
HPI - General Adult General Chief complaint: Abdominal Pain Stated complaint: RIGHT ABDOMINAL PAIN Time Seen by Provider: 05/04/23 12:45 Mode of arrival: walk-in Limitations: no limitations History of Present Illness HPI narrative: 22-year-old female presents for back pain. She has had it for few days and she points to the mid thoracic to lower thoracic region. There is been no trauma. A month and a half ago she had her gallbladder removed. She states her urine has been darker than typical. She does not have abdominal pain. She has not had a fever or vomiting. The pain is moderate and continuous. Related Data Home Medications Medication Instructions Recorded Confirmed pantoprazole 20 mg tablet,delayed 20 mg PO Q12H 03/23/23 03/23/23 release Previous Rx's Medication Instructions Recorded hydrocodone 5 mg-acetaminophen 325 1 tab PO Q4H PRN Pain Scale 4-6 03/25/23 mg tablet #20 tabs Allergies Allergy/AdvReac Type Severity Reaction Status Date / Time No Known Drug Allergies Allergy Verified 03/23/23 20:24 Review of Systems ROS Narrative A ten point review of systems is negative except as noted above. 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 Highest level of school completed/degree received: Associate degree: occupational, technical, vocational program Are you now , , , , never or living with a partner: living with partner In a typical week, how many times do you talk on the telephone with family, friends, or neighbors: 3 or more times per week How often do you get together with friends or relatives: 3 or more times per week How often do you attend oriental orthodox or jehovah's witness services: 1-3 times per year Little interest or pleasure in doing things: not at all Feeling down, depressed, or hopeless: not at all Feel stressed/tense/nervous/anxious/difficulty sleeping: not at all Do you think of yourself as: straight/heterosexual Gender Identity: female Exam Narrative Exam Narrative: Nurses note and vital signs reviewed and patient is not hypoxic. General: The patient appears well and in no apparent distress. Patient is resting comfortably on cart. Skin: Warm, dry, no pallor noted. There is no rash noted. Head: Normocephalic, atraumatic Eye: no drainage Ears, Nose, Mouth, and Throat: oral mucosa is moist. Nares patent. Cardiovascular: Regular Rate and Rhythm Respiratory: Patient is in no distress, no accessory muscle use, lungs are clear to auscultation, no wheezing, rales or rhonchi Back: No bruise or rash. She seems to have some mild palpable tenderness to palpation of the midline thoracic area. GI: no tenderness to palpation, no masses appreciated. No rebound, guarding, or rigidity noted. Musculoskeletal: The patient has no evidence of calf tenderness, no pitting edema, symmetrical pulses noted bilaterally Neurological: A&O, normal speech Psychiatric: Cooperative Constitutional Vital Signs, click to edit/add: Last Vital Signs Temp 98.2 F 05/04/23 12:23 Pulse 88 05/04/23 13:49 Resp 18 05/04/23 13:49 BP 129/86 05/04/23 13:49 Pulse Ox 98 05/04/23 13:49 Course Vital Signs Vital signs: Vital Signs Temperature 98.2 F 05/04/23 12:23 Pulse Rate 74 05/04/23 12:23 Respiratory Rate 18 05/04/23 12:23 Blood Pressure 136/81 05/04/23 12:23 Pulse Oximetry 97 05/04/23 12:23 Temperature 98.2 F 05/04/23 12:23 Pulse Rate 88 05/04/23 13:49 Respiratory Rate 18 05/04/23 13:49 Blood Pressure 129/86 05/04/23 13:49 Pulse Oximetry 98 05/04/23 13:49 Medical Decision Making MDM Narrative Medical decision making narrative: Bilirubin is elevated as are her LFTs. Gallbladder ultrasound and CAT scan are suggestive of common bile duct stone. Case discussed with Dr. Garber and she likely needs an ERCP. I have spoken to Dr. Buitrago at [facility] as well as the nurse practitioner for the gastroenterology group there and the patient is excepted by them. She is stable for transfer and agreeable for transfer. Treatment diagnosis and disposition were discussed with the patient. Differential Diagnosis Differential Diagnosis: Hepatitis, pancreatitis, retained stone Lab Data Lab results reviewed: Yes I reviewed the patient's lab results Labs: Lab Results 05/04/23 Range/Units 12:40 WBC 6.5 (4.0-11.0) 10^3/uL RBC 4.73 (4.20-5.40) 10^6/uL Hgb 13.3 (12.0-16.0) g/dL Hct 41.3 (36.0-48.0) % MCV 87.3 (81.0-99.0) fL MCH 28.1 (26.7-34.0) pg MCHC 32.2 (29.9-35.2) g/dL RDW 13.5 (11.0-15.0) % Plt Count 230 (150-450) 10^3/uL MPV 10.8 (9.5-13.5) fL Neut % (Auto) 73.6 (43.0-75.0) % Lymph % (Auto) 17.9 L (20.5-60.0) % Ford % (Auto) 6.7 (1.7-12.0) % Eos % (Auto) 0.5 L (0.9-7.0) % Baso % (Auto) 0.8 (0.2-2.0) % Neut # (Auto) 4.8 (1.4-6.5) 10^3/uL Lymph # (Auto) 1.2 (1.2-3.8) 10^3/uL Ford # (Auto) 0.4 (0.3-0.8) 10^3/uL Eos # (Auto) 0.0 (0.0-0.7) 10^3/uL Baso # (Auto) 0.1 (0.0-0.1) 10^3/uL Abs Immat Gran (auto) 0.03 (0.00-0.03) 10^3/uL Imm/Tot Granulo (auto) 0.5 (0.0-0.5) % Sodium 138 (136-145) mmol/L Potassium 3.4 L (3.5-5.1) mmol/L Chloride 101 (98-107) mmol/L Carbon Dioxide 26.9 (21.0-32.0) mmol/L Anion Gap 13.5 BUN 7.0 (7.0-18.0) mg/dL Creatinine 0.52 L (0.55-1.02) mg/dL Est GFR ( Amer) >60 (>=60) Est GFR (Non-Af Amer) >60 (>=60) BUN/Creatinine Ratio 13.5 Glucose 113 H (74-106) mg/dL Calcium 8.9 (8.5-10.1) mg/dL Total Bilirubin 4.4 H (0.2-1.0) mg/dL Direct Bilirubin 3.5 H* (0.0-0.2) mg/dL AST 127 H (15-37) U/L ALT 457 H (14-59) U/L Alkaline Phosphatase 254 H (46-116) U/L Total Protein 8.0 (6.4-8.2) g/dL Albumin 4.0 (3.4-5.0) g/dL Globulin 4.0 g/dL Albumin/Globulin Ratio 1.0 Amylase 39 (25-115) U/L Lipase 27.0 (16.0-77.0) U/L Serum HCG, Qual Negative (NEGATIVE) Urine Color Dk. orange (YELLOW) Urine Clarity Slightly cloudy A (CLEAR) Urine pH 6.0 (5.0-9.0) Ur Specific [place] >=1.030 A (1.005-1.025) Urine Protein Negative (NEG/TRACE) mg/dL Urine Glucose (UA) Negative (NEGATIVE) mg/dL Urine Ketones >=80 A (NEGATIVE) mg/dL Urine Occult Blood Moderate A (NEGATIVE) Urine Nitrite Negative (NEGATIVE) Urine Bilirubin Large A (NEGATIVE) Urine Urobilinogen 0.2 (0.2-1.0) EU/dL Ur Leukocyte Esterase Negative (NEGATIVE) Urine RBC 0-2 (0-2) #/HPF Urine WBC 0-2 A (NONE SEEN) #/HPF Ur Squamous Epith Cells Many A (NONE/RARE) #/LPF Urine Bacteria Small A (NONE SEEN) #/HPF Urine Mucus Moderate A (NONE SEEN) Imaging Data CT scan - abdomen: Radiologist's impression: ITS Impressions Upper Quadrant Ultrasound 05/04/23 13:39 IMPRESSION: 1. Gallbladder wall thickness is upper limits of normal and there is debris within the gallbladder lumen which may be secondary to recent surgery. No free fluid. Negative sonographic Mills's sign. 2. Mildly dilated common bile duct, 7 mm. No appreciable stones or mass. 3. No overtly suspicious findings. If clinical concern consider CT abdomen and pelvis with IV and oral contrast. Otherwise consider follow-up ultrasound evaluation in one week to document improvement. Electronically authenticated by: GARCIA BARON Date: 05/04/2023 15:01 Abdomen/Pelvis CT 05/04/23 15:11 IMPRESSION: Enlargement of the intrahepatic and extrahepatic biliary ducts in an patient with partial cholecystectomy. No definite calcified lesion within the common bile duct is noted. However,a noncalcified stone cannot be totally excluded. An ERCP can be helpful for further evaluation. Inderjit Barksdale M.D. communicated the results to referring clinician, by phone at 4:10 PM. Electronically authenticated by: INDERJIT CROUCH Date: 05/04/2023 16:16 Discharge Plan Discharge Chief Complaint: Abdominal Pain Clinical Impression: Biliary calculi, common bile duct Patient Disposition: [facility] Time of Disposition Decision: 16:40 Discharge location: [facility] Mode of Transportation: EMS
[2023-05-04 13:26] LABS: Basophils Absolute Auto 0.1 10^3/uL (0.0-0.1); Basophils Percent Auto 0.8 % (0.2-2.0); Eosinophils Percent Auto 0.5 % (0.9-7.0); Hematocrit 41.3 % (36.0-48.0); Hemoglobin 13.3 g/dL (12.0-16.0); Immature Granulocytes Abs Auto 0.03 10^3/uL (0.00-0.03); Immature Granulocytes Pct Auto 0.5 % (0.0-0.5); Lymphocytes Absolute Auto 1.2 10^3/uL (1.2-3.8); Lymphocytes Percent Auto 17.9 % (20.5-60.0); Mean Corpuscular HGB Conc 32.2 g/dL (29.9-35.2); Mean Corpuscular Hemoglobin 28.1 pg (26.7-34.0); Mean Corpuscular Volume 87.3 fL (81.0-99.0); Mean Platelet Volume 10.8 fL (9.5-13.5); Monocytes Absolute Auto 0.4 10^3/uL (0.3-0.8); Monocytes Percent Auto 6.7 % (1.7-12.0); Neutrophils Absolute Auto 4.8 10^3/uL (1.4-6.5); Neutrophils Percent Auto 73.6 % (43.0-75.0); Platelet Count 230 10^3/uL (150-450); Red Blood Count 4.73 10^6/uL (4.20-5.40); Red Cell Distribution Width 13.5 % (11.0-15.0); White Blood Count 6.5 10^3/uL (4.0-11.0)
[2023-05-04 13:28] LABS: Alanine Aminotransferase 457 U/L (14-59); Alkaline Phosphatase 254 U/L (46-116); Anion Gap 13.5; Aspartate Amino Transferase 127 U/L (15-37); BUN Creatinine Ratio 13.5; Bilirubin Total 4.4 mg/dL (0.2-1.0); Calcium 8.9 mg/dL (8.5-10.1); Carbon Dioxide 26.9 mmol/L (21.0-32.0); Chloride 101 mmol/L (98-107); Estimated GFR (African America >60 (>=60); Estimated GFR (Non-African Ame >60 (>=60); Glucose 113 mg/dL (74-106); Potassium 3.4 mmol/L (3.5-5.1); Sodium 138 mmol/L (136-145)
[2023-05-04 13:29] LABS: Bilirubin Urine LARGE (NEGATIVE); Blood Urine MODERATE (NEGATIVE); Color Urine DK. ORANGE (YELLOW); Glucose Urine UA NEGATIVE (NEGATIVE); Ketones Urine >=80 mg/dL (NEGATIVE); Leukocyte Esterase Urine NEGATIVE (NEGATIVE); Nitrite Urine NEGATIVE (NEGATIVE); Protein Urine NEGATIVE (NEG/TRACE); Specific Gravity Urine >=1.030 (1.005-1.025); Urobilinogen Urine 0.2 EU/dL (0.2-1.0)
[2023-05-04 13:31] LABS: Amylase 39 U/L (25-115)
[2023-05-04 13:35] LABS: Bilirubin Direct 3.5 mg/dL (0.0-0.2)
[2023-05-04 13:37] LABS: HCG Qualitative NEGATIVE (NEGATIVE)
--- NOTE | 2023-05-04 13:39 | US_ITS ---
[address] [address] Patient Name: TONI SOTELO MRN: [id number] date: 2000 Sex: F Assigned Patient Location: ER Current Patient Location: ER Accession/Order Number: [id number] Exam Date: 05/04/2023 13:40 Report Date: 05/04/2023 15:01 At the request of: JORDAN JOHNSON Procedure: US right upper quadrant EXAMINATION: US right upper quadrant HISTORY: Recent cholecystectomy, elevated bilirubin LFTs ; back pain since subtotal cholecystectomy 2 months ago COMPARISON: Ultrasound right upper quadrant 03/23/2023 TECHNIQUE: Transabdominal evaluation of the right upper quadrant. FINDINGS: LIVER: Normal size and echotexture. Color Doppler demonstrates patent hepatic veins. PORTAL VEIN: Duplex Doppler demonstrates normal hepatopetal flow pattern with flow velocity averaging 35 cm/s. GALLBLADDER: Echogenic material within gallbladder lumen; fine granular stones versus sludge versus blood products. Wall thickness is at upper limits of normal, 3 mm. Negative sonographic Mills's sign. No free fluid. BILIARY: Common bile duct is 7 mm in diameter; no visible stones or mass. PANCREASE: Not well seen. No visible mass, abnormal atrophy, or duct dilation. KIDNEY: No hydronephrosis. No visible mass or stones. Size: 10.3 x 4.9 x 4.1 cm US/US right upper quadrant IMPRESSION: 1. Gallbladder wall thickness is upper limits of normal and there is debris within the gallbladder lumen which may be secondary to recent surgery. No free fluid. Negative sonographic Mills's sign. 2. Mildly dilated common bile duct, 7 mm. No appreciable stones or mass. 3. No overtly suspicious findings. If clinical concern consider CT abdomen and pelvis with IV and oral contrast. Otherwise consider follow-up ultrasound evaluation in one week to document improvement. Electronically authenticated by: GARCIA BARON Date: 05/04/2023 15:01
[2023-05-04 13:44] LABS: Clarity Urine SLIGHTLY CLOUDY (CLEAR)
[2023-05-04 13:45] LABS: RBC Urine 0-2 #/HPF (0-2); WBC Urine 0-2 #/HPF (NONE SEEN)
[2023-05-04 13:46] LABS: Bacteria Urine SMALL #/HPF (NONE SEEN)
[2023-05-04 13:47] LABS: Mucus Urine MODERATE (NONE SEEN); Squamous Epithelial Cell Urine MANY #/LPF (NONE/RARE)
[2023-05-04] MEDS: MORPHINE SULFATE 4 MG/ML VIAL IV ×3 (13:47→23:11)
--- NOTE | 2023-05-04 15:11 | CT_ITS ---
The [address] [address] Patient Name: TONI SOTELO MRN: [id number] date: 2000 Sex: F Assigned Patient Location: ER Current Patient Location: ER Accession/Order Number: [id number] Exam Date: 05/04/2023 15:35 Report Date: 05/04/2023 16:16 At the request of: JORDAN JOHNSON Procedure: CT abdomen pelvis w con CT abdomen pelvis w con, 05/04/2023 3:35 PM EST INDICATION: Abnormal ultrasound, recent cholecystectomy COMPARISON: CT of abdomen dated 03/23/2023 and ultrasound a cyst. TECHNIQUE: Axial images of the abdomen were obtained after the administration of IV contrast. Multiplanar reformatted images were generated and reviewed as needed. Dose reduction techniques were achieved by using automated exposure control and/or adjustment of mA and/or kV according to patient size and/or use of iterative reconstruction technique. FINDINGS: Lungs: There is dependent atelectasis. No pleural effusion is noted. Liver and gallbladder: There is status post partial cholecystectomy with clips in the surgical bed. There is a acute compression of the bile within the remaining gallbladder with enlargement of the intrahepatic and extra hepatic biliary ducts. The extrahepatic biliary ducts measures approximately 6.5 mm. There is no calcified stone within the common bile duct. The liver is unremarkable. Subcutaneous fatty stranding in the mid and right upper quadrant likely due to prior intervention. Genitourinary system: No hydronephrosis. No nephrolithiasis. No abnormality of the urinary bladder is noted. 4 cm right ovarian cyst is noted. There is an IUD within the uterus. Small follicular cyst within the left ovary is noted. Other solid abdominal organs: adrenal glands, pancreas, and spleen are unremarkable. Aorta: The infrarenal abdominal aorta is nonaneurysmal. Free fluid: There is no free fluid in the abdomen pelvis. Lymph node: No lymph node enlargement by size criteria is noted. Stomach and Bowel: No abnormality of the stomach is noted. No significant abnormality of the small or large bowel is noted. Appendix could not be visualized. Bone: There is no suspicious osteolytic or osteoblastic lesion. CT/CT abdomen pelvis w con IMPRESSION: Enlargement of the intrahepatic and extrahepatic biliary ducts in an patient with partial cholecystectomy. No definite calcified lesion within the common bile duct is noted. However,a noncalcified stone cannot be totally excluded. An ERCP can be helpful for further evaluation. Claire Barksdale M.D. communicated the results to referring clinician, by phone at 4:10 PM. Electronically authenticated by: CLAIRE CROUCH Date: 05/04/2023 16:16
[2023-05-04] MEDS: 0.9 % SODIUM CHLORIDE 1,000 ML 100 ML IV (16:58)
[2023-05-04] MEDS: PIPERACILLIN SODIUM/TAZOBACTAM 3.375 GM in 0.9 % SODIUM CHLORIDE 50 ML IV (20:17)
[2023-05-04] MEDS: ONDANSETRON PF 4 MG/2 ML VIAL IV (20:39)
[2023-05-05] VITALS (77 sets, daily range): BP systolic 101–128; BP diastolic 65–87; PULSE 82; RESP 18; TEMP 37.3; O2SAT 60–99
[2023-05-05] MEDS: 0.9 % SODIUM CHLORIDE 1,000 ML 100 ML IV (03:12)
[2023-05-05] MEDS: PIPERACILLIN SODIUM/TAZOBACTAM 3.375 GM in 0.9 % SODIUM CHLORIDE 50 ML IV (03:12)
--- NOTE | 2023-05-05 04:52 | ED.ABDPAIN1 ---
HPI - Abdominal Pain General Chief Complaint: Abdominal Pain Stated Complaint: RIGHT ABDOMINAL PAIN Time Seen by Provider: 05/04/23 12:45 Mode of arrival: walk-in Limitations: no limitations History of Present Illness HPI narrative: This 22-year-old patient was awaiting transfer to [facility] for ERCP at the time of signout. No bed has been available throughout my shift. He was continually monitored while in emergency department. She had request for additional pain medication and nausea medication. I did review her labs that show elevated transaminases. She has normal white count. She is empirically given IV Zosyn. She did request something to eat and drink. Her status should be nothing by mouth but she was allowed clear liquids. Repeat labs were ordered for the morning shift. She has remained hemodynamically stable in the emergency department without severe pain or vomiting. Her morning labs are reviewed. Her white count is the same. Hemoglobin is stable. She still has elevated liver function tests but some of the numbers have come down slightly. Lipase is normal. Her glucose is slightly low at 71 and I will change her maintenance fluids to D5 0.45NS and continue to monitor. We will call for an update on her bed assignment. Related Data Home Medications Medication Instructions Recorded Confirmed pantoprazole 20 mg tablet,delayed 20 mg PO Q12H 03/23/23 03/23/23 release Previous Rx's Medication Instructions Recorded hydrocodone 5 mg-acetaminophen 325 1 tab PO Q4H PRN Pain Scale 4-6 03/25/23 mg tablet #20 tabs Allergies Allergy/AdvReac Type Severity Reaction Status Date / Time No Known Drug Allergies [facility]ergy Verified 03/23/23 20:24 [facility] Medical History (Updated 05/04/23 @ 16:41 by Yariel Bowers MD) Obesity ?E66.9 - Obesity, unspecified (ICD-10) Social History (Updated 03/24/23 @ 02:38 by Marisol Shabazz) Within the past year, how often did you have a drink containing alcohol: monthly or less Smoking status: Never smoker Non-prescribed substance use: denies use 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 Highest level of school completed/degree received: Associate degree: occupational, technical, vocational program Are you now , , , , never or living with a partner: living with partner In a typical week, how many times do you talk on the telephone with family, friends, or neighbors: 3 or more times per week How often do you get together with friends or relatives: 3 or more times per week How often do you attend zoroastrianism or nondenominational services: 1-3 times per year Little interest or pleasure in doing things: not at all Feeling down, depressed, or hopeless: not at all Feel stressed/tense/nervous/anxious/difficulty sleeping: not at all Do you think of yourself as: straight/heterosexual Gender Identity: female Exam Constitutional Vital Signs, click to edit/add: Last Vital Signs Temp 98.2 F 05/04/23 12:23 Pulse 82 05/04/23 18:24 Resp 18 05/04/23 18:24 BP 121/74 05/05/23 05:00 Pulse Ox 94 L 05/05/23 05:30 Course Vital Signs Vital signs: Vital Signs Temperature 98.2 F 05/04/23 12:23 Pulse Rate 74 05/04/23 12:23 Respiratory Rate 18 05/04/23 12:23 Blood Pressure 136/81 05/04/23 12:23 Pulse Oximetry 97 05/04/23 12:23 Temperature 98.2 F 05/04/23 12:23 Pulse Rate 82 05/04/23 18:24 Respiratory Rate 18 05/04/23 18:24 Blood Pressure 121/74 05/05/23 05:00 Pulse Oximetry 94 L 05/05/23 05:30 MDM - Abdominal Pain Medical Records Attestation: I reviewed the patient's medical records. Lab Data Labs: Lab Results 05/04/23 05/05/23 Range/Units 12:40 05:48 WBC 6.5 8.2 (4.0-11.0) 10^3/uL RBC 4.73 4.35 (4.20-5.40) 10^6/uL Hgb 13.3 12.2 (12.0-16.0) g/dL Hct 41.3 38.5 (36.0-48.0) % MCV 87.3 88.5 (81.0-99.0) fL MCH 28.1 28.0 (26.7-34.0) pg MCHC 32.2 31.7 (29.9-35.2) g/dL RDW 13.5 13.8 (11.0-15.0) % Plt Count 230 213 (150-450) 10^3/uL MPV 10.8 10.7 (9.5-13.5) fL Neut % (Auto) 73.6 76.6 H (43.0-75.0) % Lymph % (Auto) 17.9 L 14.3 L (20.5-60.0) % [place] % (Auto) 6.7 7.9 (1.7-12.0) % Eos % (Auto) 0.5 L 0.2 L (0.9-7.0) % Baso % (Auto) 0.8 0.5 (0.2-2.0) % Neut # (Auto) 4.8 6.3 (1.4-6.5) 10^3/uL Lymph # (Auto) 1.2 1.2 (1.2-3.8) 10^3/uL [place] # (Auto) 0.4 0.7 (0.3-0.8) 10^3/uL Eos # (Auto) 0.0 0.0 (0.0-0.7) 10^3/uL Baso # (Auto) 0.1 0.0 (0.0-0.1) 10^3/uL Abs Immat Gran (auto) 0.03 0.04 H (0.00-0.03) 10^3/uL Imm/Tot Granulo (auto) 0.5 0.5 (0.0-0.5) % Sodium 138 140 (136-145) mmol/L Potassium 3.4 L 3.8 (3.5-5.1) mmol/L Chloride 101 106 (98-107) mmol/L Carbon Dioxide 26.9 19.7 L (21.0-32.0) mmol/L Anion Gap 13.5 18.1 BUN 7.0 8.0 (7.0-18.0) mg/dL Creatinine 0.52 L 0.52 L (0.55-1.02) mg/dL Est GFR ( Amer) >60 >60 (>=60) Est GFR (Non-Af Amer) >60 >60 (>=60) BUN/Creatinine Ratio 13.5 15.4 Glucose 113 H 71 L (74-106) mg/dL Calcium 8.9 8.3 L (8.5-10.1) mg/dL Total Bilirubin 4.4 H 4.5 H (0.2-1.0) mg/dL Direct Bilirubin 3.5 H* (0.0-0.2) mg/dL AST 127 H 89 H (15-37) U/L ALT 457 H 331 H (14-59) U/L Alkaline Phosphatase 254 H 270 H (46-116) U/L Total Protein 8.0 7.1 (6.4-8.2) g/dL Albumin 4.0 3.4 (3.4-5.0) g/dL Globulin 4.0 3.7 g/dL Albumin/Globulin Ratio 1.0 0.9 Amylase 39 (25-115) U/L Lipase 27.0 24.0 (16.0-77.0) U/L Serum HCG, Qual Negative (NEGATIVE) Urine Color Dk. orange (YELLOW) Urine Clarity Slightly cloudy A (CLEAR) Urine pH 6.0 (5.0-9.0) Ur Specific [place] >=1.030 A (1.005-1.025) Urine Protein Negative (NEG/TRACE) mg/dL Urine Glucose (UA) Negative (NEGATIVE) mg/dL Urine Ketones >=80 A (NEGATIVE) mg/dL Urine Occult Blood Moderate A (NEGATIVE) Urine Nitrite Negative (NEGATIVE) Urine Bilirubin Large A (NEGATIVE) Urine Urobilinogen 0.2 (0.2-1.0) EU/dL Ur Leukocyte Esterase Negative (NEGATIVE) Urine RBC 0-2 (0-2) #/HPF Urine WBC 0-2 A (NONE SEEN) #/HPF Ur Squamous Epith Cells Many A (NONE/RARE) #/LPF Urine Bacteria Small A (NONE SEEN) #/HPF Urine Mucus Moderate A (NONE SEEN) Discharge Plan Discharge Chief Complaint: Abdominal Pain Clinical Impression: Biliary calculi, common bile duct Patient Disposition: [facility] Time of Disposition Decision: 16:40 Discharge location: [facility] Mode of Transportation: EMS
[2023-05-05 06:03] LABS: Basophils Percent Auto 0.5 % (0.2-2.0); Eosinophils Percent Auto 0.2 % (0.9-7.0); Hematocrit 38.5 % (36.0-48.0); Hemoglobin 12.2 g/dL (12.0-16.0); Immature Granulocytes Abs Auto 0.04 10^3/uL (0.00-0.03); Immature Granulocytes Pct Auto 0.5 % (0.0-0.5); Lymphocytes Absolute Auto 1.2 10^3/uL (1.2-3.8); Lymphocytes Percent Auto 14.3 % (20.5-60.0); Mean Corpuscular HGB Conc 31.7 g/dL (29.9-35.2); Mean Corpuscular Volume 88.5 fL (81.0-99.0); Mean Platelet Volume 10.7 fL (9.5-13.5); Monocytes Absolute Auto 0.7 10^3/uL (0.3-0.8); Monocytes Percent Auto 7.9 % (1.7-12.0); Neutrophils Absolute Auto 6.3 10^3/uL (1.4-6.5); Neutrophils Percent Auto 76.6 % (43.0-75.0); Platelet Count 213 10^3/uL (150-450); Red Blood Count 4.35 10^6/uL (4.20-5.40); Red Cell Distribution Width 13.8 % (11.0-15.0); White Blood Count 8.2 10^3/uL (4.0-11.0)
[2023-05-05 06:16] LABS: Alanine Aminotransferase 331 U/L (14-59); Albumin Globulin Ratio 0.9; Albumin Level 3.4 g/dL (3.4-5.0); Alkaline Phosphatase 270 U/L (46-116); Anion Gap 18.1; Aspartate Amino Transferase 89 U/L (15-37); BUN Creatinine Ratio 15.4; Bilirubin Total 4.5 mg/dL (0.2-1.0); Calcium 8.3 mg/dL (8.5-10.1); Carbon Dioxide 19.7 mmol/L (21.0-32.0); Chloride 106 mmol/L (98-107); Estimated GFR (African America >60 (>=60); Estimated GFR (Non-African Ame >60 (>=60); Globulin 3.7 g/dL; Glucose 71 mg/dL (74-106); Potassium 3.8 mmol/L (3.5-5.1); Sodium 140 mmol/L (136-145); Total Protein 7.1 g/dL (6.4-8.2)
== END 2023-05-05 12:58 | disposition short-term general hospital (02) ==
PROVIDERS: Emergency Medicine; Emergency Provider Emergency Medicine
DX: K80.50 Calculus of bile duct without cholangitis or cholecystitis without obstruction (principal); Z90.49 Acquired absence of other specified parts of digestive tract; Z79.899 Other long term (current) drug therapy; E66.9 Obesity, unspecified; Z68.29 Body mass index [BMI] 29.0-29.9, adult
CPT/HCPCS: 36415; 74177; 76705; 80048; 80053; 80076; 81001; 82150; 83690; 84703; 85025; 96365; 96366; 96375; 96376; 99285; J2270; J2405; J2543; Q9967